=== PATIENT | male | born 1975 | race Caucasian/White ===

== ENCOUNTER 2019-11-19 13:02 | Outpatient (CLI) | payer BC, SELFPAY ==
--- NOTE | 2019-11-19 11:57 | DI.RAD_ITS ---
EXAM: XR KNEE RT 2V AP,LAT CLINICAL HISTORY: pain. TECHNIQUE: 2D digital imaging was performed. COMPARISON: CR KNEES BILAT AP LATERALS from 01/11/2017 FINDINGS: Moderate degenerative changes are seen in the right knee characterized by joint space narrowing and p eriarticular spurring. The findings are most marked in the patellofemoral and medial femoral tibial joint. The bones are intact and normally mineralized. The soft tissues are unremarkable. IMPRESSION: Moderate degenerative changes of the right knee. DATA REPOSITORY: RADIATION DOSE DELIVERED:
== END 2019-11-19 13:22 ==
PROVIDERS: PCP Nurse Practitioner; Referring Provider Nurse Practitioner; Visit Provider Orthopaedic Surgery
DX: M17.11 Unilateral primary osteoarthritis, right knee (principal)
CPT/HCPCS: 73560

== ENCOUNTER → 2020-03-01 09:53 | Outpatient (CLI) | payer BC, SELFPAY ==
--- NOTE | 2020-03-01 08:30 | DI.RAD_ITS ---
EXAM: XR STANDING ALIGNMENT CLINICAL HISTORY: eval alignment pre TKA. TECHNIQUE: 2D digital imaging was performed. COMPARISON: CR XR KNEE RT 2V AP,LAT from 11/19/2019 FINDINGS: There is advanced narrowing of the medial compartment of the right knee. Mild narrowing of the media l compartment of the opposite-left knee. There is mild medial subluxation of the femoral condyles re lative to the tibial plateau bilaterally. Lateral compartments of both knees exhibit normal height. Ankles appear unremarkable. With respect to the hips, image does not include the most superior aspe ct of the femoral heads and therefore it is difficult to determine the amount of narrowing of the hip joint space. If clinically indicated dedicated hip films could be performed. IMPRESSION: Advanced narrowing of the medial compartment of the right knee. Other findings as above. Femoral heads not completely included in the field of view here. DATA REPOSITORY: RADIATION DOSE DELIVERED:
== END ==
PROVIDERS: PCP Nurse Practitioner; Referring Provider Nurse Practitioner; Visit Provider Student in an Organized Health Care Education/Training Program
DX: M17.11 Unilateral primary osteoarthritis, right knee (principal)
CPT/HCPCS: 77073

== ENCOUNTER → 2020-03-05 02:19 | Outpatient (CLI) | payer BC, SELFPAY ==
[2020-03-05 09:33] LABS: HCT 46.1 % (40.0-50.0); HGB 16.2 g/dL (13.5-17.5); MCH 31.5 pg (27.0-33.0); MCHC 35.1 % (32.0-36.0); MCV 89.7 fL (80-95); MPV 10.2 fL (8.0-11.0); Platelet Count 173 10^3/uL (130-400); RBC 5.14 10^6/uL (4.36-5.78); RDW 12.7 % (11.8-14.1); RDW-SD 41.4 fL; WBC 9.88 10^3/uL (4.4-10.8)
[2020-03-05 10:48] LABS: Anion Gap 12.5 mmol/L (3-11); BUN 23 mg/dL (7-18); CO2 22.5 mmol/L (21.0-32.0); CREATININE 0.84 mg/dL (0.70-1.30); Calcium 8.8 mg/dL (8.5-10.1); Chloride 106 mmol/L (98-107); Glucose 85 mg/dL (74-106); Potassium 4.3 mmol/L (3.5-5.1); Sodium 141 mmol/L (136-145)
[2020-03-08 12:11] LABS: COVID-19 RT-PCR Result NEGATIVE (Negative)
== END ==
PROVIDERS: PCP Nurse Practitioner; Visit Provider Student in an Organized Health Care Education/Training Program
DX: M25.561 Pain in right knee (principal); M17.11 Unilateral primary osteoarthritis, right knee; Z11.59 Encounter for screening for other viral diseases; Z01.818 Encounter for other preprocedural examination; Z01.812 Encounter for preprocedural laboratory examination
CPT/HCPCS: 36415; 80048; 85027; U0003

== ENCOUNTER 2020-03-10 08:10 | Day surgery (SDC) | payer BC, SELFPAY ==
[2020-03-10] VITALS (10 sets, daily range): BP systolic 122–147; BP diastolic 71–101; PULSE 68–84; RESP 12–19; TEMP 36.1–37; O2SAT 95–100
[2020-03-10] MEDS: Celecoxib 200 MG CAP 400 MG PO (08:42)
[2020-03-10] MEDS: Acetaminophen 500 MG TAB 1000 MG PO (08:42)
[2020-03-10] MEDS: Gabapentin 300 MG CAP PO (08:43)
--- NOTE | 2020-03-10 08:50 | PDOC.DSDIS_ITS ---
Documented by User: Juli Albrightxon 03/10/20 09:03 Discharge Plan Disposition Patient Disposition: HOME Condition: Good Discharge Details Reason For Visit: R TKA Attending Provider: Chase St Primary Care Provider: Zoya Mariscal Home Meds and New Rx's Prescriptions: New celecoxib [Celebrex] 200 mg capsule 200 mg PO BID Qty: 60 RF: 0 aspirin 81 mg tablet,delayed release (DR/EC) 81 mg PO BID Qty: 60 RF: 0 acetaminophen [Tylenol Extra Strength] 500 mg tablet 500 mg PO Q6H PRNQty: 90 RF: 0 pantoprazole [Protonix] 40 mg tablet,delayed release (DR/EC) 40 mg PO DAILY Qty: 30 RF: 0 oxycodone 5 mg tablet 5 mg PO Q4H PRNQty: 18 RF: 0 docusate sodium [Colace] 100 mg capsule 100 mg PO BID Qty: 30 RF: 0 Continued lisinopril 10 mg tablet 10 mg PO DAILY Qty: 90 RF: 3 Discharge Instructions Additional Instructions: Total Knee Discharge Instructions Activity: The most important activity is to walk. You should try to take short walks a few times a day. It is important that when resting you work on keeping the knee straight. Avoid putting a pillow behind the knee as this will encourage flexion. Work on range of motion exercises as provided by Physical Therapy. - Start outpatient physical therapy within 2 weeks. - You should wear the ROSETTA hose on both legs for 2 weeks. Dressing: Keep the surgical dressing in place for at least one week. After the first week it may be removed and replace with light gauze and tape or nothing. It may get wet after 3 days but avoid soaking the dressing. If it gets wet, just lightly pat dry. Medications: - You should take Tylenol and anti-inflammatory Celebrex as your primary pain control medications. If the Celebrex is too expensive or not covered, please call the office for another alternative (Advil/Ibuprofen or Naproxen/Aleve) - You have been prescribed a stronger pain medication Oxycodone for breakthrough pain, take as needed as prescribed. - You have also been prescribed a stomach acid reduction agent Pantoprozole to help reduce stomach acid and reflux. - You will be taking Aspirin 81mg twice a day for DVT prevention unless instructed otherwise. - If you have constipation you should take Colace (which has been prescribed) or Miralax (which you may purchase [id number]). It takes most people 3-4 days to have a bowel movement. Follow-up: 2 weeks If you have any acute concerns or questions, please do not hesitate to contact the office at [phone]. You may contact Dr. St with any questions after hours through the hospital at [phone] or on his cell phone at [phone]. Referrals: Chase St MD [ [facility] STAFF PHYSICIAN] - Equipment/Supplies: Walker Activity:: Activity as Tolerated Remove Dressings/Wound Care:: Do Not Remove Shower/Bathe:: 72 hours Diet:: As Tolerated Discharge Orders Discharge Orders: Discharge Order (Routine); Ordered 03/10/20 Ordered By: Chase St DS: Diagnosis Discharge Diagnosis (1) Osteoarthritis of right knee: Status: Acute Documented by User: Chase St MD 03/10/20 14:17 Discharge Plan Disposition Patient Disposition: HOME Condition: Good Discharge Details Reason For Visit: R TKA Attending Provider: Chase St Primary Care Provider: Zoya Mariscal Home Meds and New Rx's Prescriptions: New celecoxib [Celebrex] 200 mg capsule 200 mg PO BID Qty: 60 RF: 0 aspirin 81 mg tablet,delayed release (DR/EC) 81 mg PO BID Qty: 60 RF: 0 acetaminophen [Tylenol Extra Strength] 500 mg tablet 500 mg PO Q6H PRNQty: 90 RF: 0 pantoprazole [Protonix] 40 mg tablet,delayed release (DR/EC) 40 mg PO DAILY Qty: 30 RF: 0 oxycodone 5 mg tablet 5 mg PO Q4H PRNQty: 18 RF: 0 docusate sodium [Colace] 100 mg capsule 100 mg PO BID Qty: 30 RF: 0 Continued lisinopril 10 mg tablet 10 mg PO DAILY Qty: 90 RF: 3 Discharge Instructions Additional Instructions: Total Knee Discharge Instructions Activity: The most important activity is to walk. You should try to take short walks a few times a day. It is important that when resting you work on keeping the knee straight. Avoid putting a pillow behind the knee as this will encourage flexion. Work on range of motion exercises as provided by Physical Therapy. - Start outpatient physical therapy within 2 weeks. - You should wear the ROSETTA hose on both legs for 2 weeks. Dressing: Keep the surgical dressing in place for at least one week. After the first week it may be removed and replace with light gauze and tape or nothing. It may get wet after 3 days but avoid soaking the dressing. If it gets wet, just lightly pat dry. Medications: - You should take Tylenol and anti-inflammatory Celebrex as your primary pain control medications. If the Celebrex is too expensive or not covered, please call the office for another alternative (Advil/Ibuprofen or Naproxen/Aleve) - You have been prescribed a stronger pain medication Oxycodone for breakthrough pain, take as needed as prescribed. - You have also been prescribed a stomach acid reduction agent Pantoprozole to help reduce stomach acid and reflux. - You will be taking Aspirin 81mg twice a day for DVT prevention unless instructed otherwise. - If you have constipation you should take Colace (which has been prescribed) or Miralax (which you may purchase [id number]). It takes most people 3-4 days to have a bowel movement. Follow-up: 2 weeks If you have any acute concerns or questions, please do not hesitate to contact the office at [phone]. You may contact Dr. St with any questions after hours through the hospital at [phone] or on his cell phone at [phone]. Referrals: Chase St MD [ [facility] STAFF PHYSICIAN] - Equipment/Supplies: Walker Activity:: Activity as Tolerated Remove Dressings/Wound Care:: Do Not Remove Shower/Bathe:: 72 hours Diet:: As Tolerated Discharge Orders Discharge Orders: Discharge Order (Routine); Ordered 03/10/20 Ordered By: Chase St
[2020-03-10] MEDS: Lactated Ringers 1,000 ML 30 ML IV (09:20)
[2020-03-10] MEDS: Bupivacaine 0.25% Pres-Free 10 ML VIAL (10:10)
[2020-03-10] MEDS: ceFAZolin 2 GM/50 ML BAG IVPB (10:43)
[2020-03-10] MEDS: Ketorolac 30 MG/ML VIAL (11:59)
[2020-03-10] MEDS: Bupivacaine 0.25% Pres-Free 30 ML VIAL (11:59)
[2020-03-10] MEDS: Normal Saline 20 ML VIAL (11:59)
--- NOTE | 2020-03-10 12:31 | W.PM.OP ---
Date of service: 03/10/20 Time of Service: 12:32 Operative Note Operative Note DATE OF PROCEDURE: 03/10/20 PRE-OP DIAGNOSIS: Right Knee Osteoarthritis POST-OP DIAGNOSIS: same PROCEDURE: Right Total Knee Replacement SURGEON: Chase St [employer]: [place] ANESTHESIA: regional and spinal ESTIMATED BLOOD LOSS: 400 PATHOLOGY: none sent TOURNIQUET TIME: 0 COMPLICATIONS: None Patient was transported to: PACU Patient's condition: stable Implants: 1. Depuy Attune Cementless Cruciate Retaining Femoral Component, Size 9 2. Depuy Attune Cementless Rotating Platform Tibial Component, Size 8 3. Depuy Attune 9x6mm CR/RP Poly 4. Depuy Attune Patellar Component, Size 41mm Indications: I have seen Vivek in clinic for symptoms of knee arthritis, confirmed with radiographic findings. Vivek has exhausted nonoperative methods and was having significant limitations in daily function and desired better function and less pain. I discussed the technical details of a knee replacement. I explained the risks of the procedure to include, but not limited to, bleeding, infection, pain, stiffness, fracture, damage to nerves and vessels, damage to muscles and tendons, loosening, need for repeat procedure, blood clot and cardiopulmonary demise. Despite these risks, he elected to proceed. Findings: There was significant signs of arthritis throughout the knee involving all 3 compartments with large medial and anterior femoral osteophytes. Procedure Description: Vivek was greeted in the preoperative holding area where the correct side was identified and marked. The consent was reviewed with the patient and signed. The history and physical was updated. All questions were answered. Preoperative medications were administered: Acetaminophen 1000mg, Celebrex 400mg, and Gabapentin 300mg. An adductor canal block was then administered by the anesthesia team in the PACU. Vivek was taken back to the operating room. A spinal anesthestic was then administered. The patient was placed into the supine position on the operating room table. A nonsterile tourniquet was placed high onto the leg but only used for cementing. Posts were placed for positioning during the procedure. All bony prominences were well padded. Prophylactic antibiotics in the form of Cefazolin were administered. 1g of Tranxemic Acid was given intravenously within 30 minutes of incision. The right leg was then prepped with Chloraprep and draped in a standard fashion with impervious stockinette. A second prep with Chloraprep was performed prior to application of Iodine impregnated skin protection. A timeout to confirm correct identity, side and site, procedure, allergies, anesthesia, and medical concerns was performed. With the knee in some flexion, a midline incision was made overlying the knee. Full thickness skin flaps were raised once the extensor mechanism was encountered. These were raised medially and laterally. Any bleeding was controlled with electrocautery. Once the extensor mechanism was fully exposed, a medial parapatellar arthrotomy was performed in a flexed position. All bleeding from the arthrotomy and the geniculate arteries was coagulated. A medial subperiosteal peel was performed with electrocautery to the midcoronal plane. The fat pad was removed while keeping the patellar tendon protected. The anterior distal femur synovium was removed for later visualization. The ACL and PCL were resected and the anterior horn of the lateral meniscus was transected. The knee was then flexed with the patella everted. Large osteophytes from the tibia were removed. Large osteophytes from the femur were removed. Using a step drill, and based on preoperative templating, the femoral canal was entered. This was done with a step drill without any difficulty. The intramedullary distal femoral cut guide was inserted, set to a 5 degree valgus cut and 10mm cut thickness. The distal femoral cut guide was then held in position and pinned. With the soft tissues protected, the distal cut was performed. This was passed over a few times to ensure a planar cut. I then turned attention to the tibia. The extramedullary guide was placed onto the leg. The distal aspect was slid medial to adjust for position of center of ankle and stay in line with shaft of the tibia. Approximately 5 degrees of posterior slope was kept in the proximal cutting guide. The center of the guide was aligned with the PCL. The stylus was used to assess cut thickness. The medial side, most involved side, was set for a 4mm cut which corresponded to 8mm laterally. This was then held in position and pinned into place with 2 additional pins and a cross pin for stability. The medial and lateral collateral ligaments were protected and the cut was performed. With this completed, it was assessed and noted to be of appropriate dimensions. The guide was removed. A spacer block was inserted and the knee was brought into extension. The 6mm spacer block provided full extension, without hyperextension and with stability of both the medial and lateral collateral ligaments was assessed. The pins from the femur and the tibia were then removed. The distal femur was then sized. The anterior stylus was placed onto the lateral ridge of the anterior femur. This indicated a size 9 femur. The external rotation of the guide was adjusted to 3 degrees to match the epicondylar axis, perpendicular to Adamaris?s line. The 4-in-1 cutting guide was the placed. The posterior medial femur cut was evaluated and appeared of good thickness. The spacer block was inserted underneath the cutting guide and stability was confirmed in 90 degrees of flexion. An latoya wing was used to confirm appropriate position of the anterior cut to avoid notching. This cutting guide was ensured to be flush on the cut surface and then pinned into place with headed pins. While protecting the soft tissues, quad tendon, and collateral ligaments, the anterior and posterior cuts were performed with a saw. The central two pins were removed and the posterior and anterior chamfers were cut next. The notch-cutting guide was placed. This was pinned to lateralize the femoral component as much as possible while keeping it flush on the cut surface. This was then pinned into position. A reciprocating saw was used to make the notch cut. A rasp smoothed the cut surfaces. The medial and lateral menisci were removed. A trial femoral component was then inserted, impacted down to the cut surfaces, and the lug holes were drilled. A provisional trial tibial component was placed and the knee was brought through range of motion. There was noted to be excellent extension and flexion. There was no significant instability. The patella was tracking without thumbs. A size 6mm polyethylene component provided the best range of motion and stability with less than 2mm gapping with medial and lateral stress and full extension without significant hyperextension. The tibial cut surface was fully exposed. The tibia was then sized as a 8. The tibia had been previously marked during trialing to correspond to the center of the tibial component to help with rotation. The trial was aligned to this priscilla, approximately rotated to the medial 1/3rd of the tibial tubercle. The trial was pinned into place. The tibia was prepared with a reamer and a keel punch and lug holes. The knee was then brought into extension and the patella was measured as 29mm. Using the patellar clamp and cut guide, this was resected to a flat surface with at least 13mm of thickness remaining. The size 41mm patella fit the best. This was oriented and then clamped into position. The lugs were drilled. The trial components were removed. The final components were opened on the back table. The periosteal and capsular tissues, especially posteriorly, around the knee were then systematically injected with a periarticular cocktail consisting of 50cc 0.25% Marcaine, 30mg Ketorolac, 20cc of Exparal and 50cc of injectable saline. The knee was thoroughly irrigated with a pulse lavage and dried. Irrisept was also used to irrigate the tissues. On the back table, with the implants opened, the cement was mixed. One batch of high viscosity cement were prepared with vacuum assistance. After the cement was ready a small amount was placed on the cut surface of the patella and the patellar button was clamped into position and held. During this process attention was turned to the gutters of the knee and for all interfaces for any excess cement. While the cement was hardening, the cementless knee components were placed. Starting with the tibial component, the tibia was subluxed anteriorly and the lug holes of the component were lined up. The tibia was then impacted with an impactor and mallet until the tibial component was in contact with the tibia. The final polyethylene component was inserted. Then, the femoral component was inserted. The lug holes were aligned and the component was impacted into position. The knee was irrigated with Irrisept chlorhexadine solution. This was allowed to sit in the knee for 3 minutes. After the cement had finally cured, approximately 15min, the clamp was removed from the patella and the knee was taken through range of motion. The patella was tracking with a no-thumbs technique. The capsule was then reapproximated with a No. 1 Vicryl at multiple locations. The capsule was finally closed with a No. 2 Stratafix, barbed suture. The second dosing of 1g TXA was started. Deep tissues were then reapproximated with 0 Vicryl and 2-0 Vicryl. The skin was closed with a running 3-0 Monocryl in a subcuticular fashion. This was reinforced with skin glue. A Mepilex silver dressing was applied along with a [id number] DENNY wrap. A CryoCuff was applied. Vivek was transferred to the hospital bed without difficulty an suffering no apparent complication. Vivek has a good prognosis. Physical therapy will start today and without restrictions, weight-bearing as tolerated. Aspirin 81mg BID will be used for DVT prophylaxis.
--- NOTE | 2020-03-10 15:48 | IN_ITS ---
Date of service: 03/10/20 Time of Service: 15:48 PT Notes Visit Reasons: R TKA Physical Therapy Inpatient Initial Evaluation Date: 03/10/2020 Referring Doctor: GINI Rosa PT Orders: PT CONSULT: Status post Ortho surgery Precautions: Fall. Standard. WBAT on the right LE. Patient Profile/Admitting Diagnosis: Vivek is a 44-year-old male with degenerative joint disease of the right knee and is status post right total knee arthroplasty on postoperative day 0. PMHX: Medical History Bilateral knee pain Diverticulosis HTN (hypertension) Hyperlipidemia Hyperuricemia Low back pain Obesity KATE (obstructive sleep apnea) Prediabetes Rectal bleeding Surgical History Arthroplasty of knee Back surgery lumbar spine surgery Social History/Home Situation: Vivek lives with the in a private home with 2 steps to enter and bilateral rails. He is independent with all aspects of ADLs prior to surgery. Equipment Owned/DME: None Subjective: Agreeable to PT consult. Complained of sudden onset lightheadedness upon standing up from edge of bed. Nurse Tesfaye rechecked blood pressure which was in the 150s systolically and high 70s diastolically. After 5 minutes of rest patient is agreeable to retry standing up and reports that he felt a lot better. Objective: General Observation: Cryo/Cuff on right knee. Gaurang wraps on right LE. IV access in left UEs. Nurses Travis and Silvana providing needed assist in close vital signs monitoring as needed throughout session. Mental Status: Alert and oriented x4 Pain: 1/10 in the right knee Vital Signs: Within normal limits as closely monitored by nurse Tesfaye before, during, and immediately after PT session. ROM: Right Upper Extremity: Shoulder Flexion WFL. Shoulder abduction WFL. Elbow flexion WFL. Wrist flexion WFL. Opening and closing of hand WFL. Left Upper Extremity: Shoulder Flexion WFL. Shoulder abduction WFL. Elbow flexion WFL. Wrist flexion WFL. Opening and closing of hand WFL. Right Lower Extremity: Hip flexion WFL. Hip abduction WFL. Knee flexion 10 to 90 degrees. Knee extension -10 degrees. Ankle dorsiflexion WFL. Ankle plantarflexion WFL. Left Lower Extremity: Hip flexion WFL. Hip abduction WFL. Knee flexion WFL. Ankle dorsiflexion WFL. Ankle plantarflexion WFL. Strength: Right Upper Extremity: Shoulder flexors 5/5. Shoulder abductors 5/5. Elbow flexors 5/5. Elbow extensors 5/5. [employer] strong. Left Upper Extremity: Shoulder flexors 5/5. Shoulder abductors 5/5. Elbow flexors 5/5. Elbow extensors 5/5. [employer] Technicians strong. Right Lower Extremity: Hip flexors 4/5. Hip abductors 4/5. Knee flexors 3-/5. Knee extensors 3-/5. Ankle dorsiflexors 5/5. Ankle plantarflexors 5/5. Left Lower Extremity:Hip flexors 5/5. Hip abductors 5/5. Knee flexors 5/5. Knee extensors 5/5. Ankle dorsiflexors 5/5. Ankle plantarflexors 5/5. Sensation: Intact as to pain and pressure on bilateral lower extremities. Bed Mobility/Transfers: Rolling independent Supine to sit independent Sit to stand contact-guard assist Stand to sit contact-guard assist Bed to chair contact-guard assist Chair to bed contact-guard assist Gait: Guided and instructed patient on level surface ambulation of 100 feet using the front wheeled walker with step to gait pattern requiring contact-guard assist of PT, standby assist of nurse Tesfaye on the other side, and wheelchair follow-up with nurse Pina. Trained with stair negotiation techniques for 3 steps x4 inch while holding onto 1 rail and with hand-held support of PT with no exacerbation of symptoms. Balance: Static Sitting: Normal Dynamic Sitting: Normal Static Standing: Fair Dynamic Standing: Fair Special Tests: Mobility Limitations Standardized Measure [facility]-PAC 6 clicks Basic Mobility Inpatient Short Form: Raw Score: 21 CMS Score: 29% deficit Informed Consent/Education: Patient instructed in purpose of PT consult and plan of care. Assessment: Vivek requires the use of a front wheeled walker to maximize independence and reduce fall risk at home. He will have the support of his as he recovers at home. He will benefit from outpatient PT services in order to regain independent community ambulation without an assistive device. Patient presents with clinical signs and symptoms consistent with current/admitting diagnoses that have resulted to mobility limitations, gait instability, generalized weakness, and impairment of motor control as demonstrated by the following impairment level findings: 1. Decreased strength to right knee major muscle groups 2. Impaired standing balance 3. Impaired activity tolerance 4. Limitation of joint range of motion in right knee Impairments are contributing to the following functional limitations: 1. Inability to safely ambulate without assistive device 2. Increase completion time for mobility ADL performance 3. Increased fall risk 4. Inability to negotiate steps alone safely Patient is assessed as a 36424 moderate complexity based on the following: History: 44-year-old male with impairment level findings, functional limitations, and past medical history as indicated above Examination: Demonstrable impairment in strength, balance, and mobility level with underlying impairments and functional limitations as documented above Presentation:Evolving Decision Makin moderate complexity Goals: N/A. PT evaluation 1 treatment session only for functional mobility training using the front wheeled walker and for HEP instruction. Plan of Care/Treatment Plan: N/A. PT evaluation 1 treatment session only for functional mobility training using the front wheeled walker and for HEP instruction. DISCHARGE RECOMMENDATIONS: Home when medically cleared by orthopedic surgeon. Outpatient PT services after 2 weeks in order to regain independent community ambulation level without an assistive device. TREATMENT CODE/TIME: 79797 x 30 minutes, 33249 x 24 minutes beginning at 15:48 PM. Thank you for the opportunity to participate in the care of this patient. Claudia Akers PT, DPT, CLT [facility] [place], [place]
== END 2020-03-10 17:55 | disposition home or self-care (01) ==
LOC: SUR 08:10
PROVIDERS: PCP Nurse Practitioner; Visit Provider Student in an Organized Health Care Education/Training Program
PROC: (CPT 27447; principal; 2020-03-10 11:00)
DX: M17.11 Unilateral primary osteoarthritis, right knee (principal); Z96.651 Presence of right artificial knee joint; G89.18 Other acute postprocedural pain; I10 Essential (primary) hypertension
CPT/HCPCS: 27447; C1776; 76942; 97162; 97530; J0690; J1100; J1885; J2405; J2704

== ENCOUNTER 2020-03-26 09:06 | Outpatient (CLI) | payer BC, SELFPAY ==
--- NOTE | 2020-03-26 09:00 | DI.RAD_ITS ---
EXAM: XR STANDING ALIGNMENT and XR knee RT 1 V CLINICAL HISTORY: 1ST POST OP R TKA. TECHNIQUE: 2D digital imaging was performed. COMPARISON: CR XR STANDING ALIGNMENT from 03/01/2020 CR XR KNEE RT 1V from 03/26/2020 FINDINGS: There are mild degenerative changes of the hips bilaterally. Since the prior examination the patient has undergone a right total knee replacement. The orthopedic hardware appears in good position. Th ere is soft tissue swelling about the knee. There is an enthesophyte at the superior patella. The l eft knee shows mild degenerative changes with joint space narrowing and periarticular spurring partic ularly in the medial femoral tibial joint. The ankles are well maintained. The right lower extremit y measures 102.5 cm. The left lower extremity measures 106.2 cm. IMPRESSION: 1. Status post right total knee replacement. Soft tissue swelling around the right knee. 2. Leg length discrepancy. The measured length of the left leg is greater than that of the right leg . DATA REPOSITORY: RADIATION DOSE DELIVERED:
== END 2020-03-26 09:26 ==
PROVIDERS: PCP Nurse Practitioner; Referring Provider Nurse Practitioner; Visit Provider Physician Assistant
DX: Z96.651 Presence of right artificial knee joint (principal); M21.751 Unequal limb length (acquired), right femur
CPT/HCPCS: 73560; 77073

== ENCOUNTER 2020-05-14 06:14 | Day surgery (SDC) | payer BC, SELFPAY ==
[2020-05-14 06:32] VITALS: BP 145/96; PULSE 84; RESP 18; TEMP 36.5; O2SAT 95
--- NOTE | 2020-05-14 07:14 | W.PM.DSUDISC ---
Discharge Plan Disposition Patient Disposition: HOME Condition: Good Discharge Details Reason For Visit: Right Knee ARthrofibrosis Attending Provider: Chase St Primary Care Provider: Zoya Mariscal Home Meds and New Rx's Prescriptions: New oxycodone 5 mg tablet 5 mg PO Q8H PRN PRNQty: 12 RF: 0 Continued lisinopril 10 mg tablet 10 mg PO DAILY Qty: 90 RF: 3 celecoxib [Celebrex] 200 mg capsule 200 mg PO BID Qty: 60 RF: 0 Changed acetaminophen [Tylenol Extra Strength] 500 mg tablet 1,000 mg PO Q8H PRN PRNQty: 60 RF: 0 Discharge Instructions Additional Instructions: Activity: You should begin moving as soon as possible. You should work equally on flexion and extension. Extend the knee by supporting the heel but leaving the back of the knee unsupported. You may bear weight as tolerated, using crutches only for support/comfort. You should apply ice to help with swelling and elevate when possible (especially in the first few days). You should apply ice to assist with swelling and pain. Medications: - Rarely does this require any stronger pain medications, but it may for the first few days or with PT. Oxycodone has been called in. - Recommend to take up to 1000mg of Acetaminophen (Tylenol) every 8 hours and continue your Celebrex 200mg twice a day as needed. Follow-up: 7-10 days Referrals: Chase St MD [ [facility] STAFF PHYSICIAN] - Activity:: Elevate Remove Dressings/Wound Care:: 24 hours Shower/Bathe:: 24 hours Diet:: As Tolerated Discharge Orders Discharge Orders: Discharge Order (Routine); Ordered 05/14/20 Ordered By: Chase St DS: Diagnosis Discharge Diagnosis (1) Arthrofibrosis of total knee arthroplasty: Status: Acute
[2020-05-14] MEDS: Lactated Ringers 1,000 ML 80 ML IV (07:20)
[2020-05-14] MEDS: Bupivacaine 0.25% Pres-Free 30 ML VIAL (07:20)
--- NOTE | 2020-05-14 07:32 | ROE_ITS ---
Date of service: 05/14/20 Time of Service: 07:32 Operative Note Operative Note DATE OF PROCEDURE: 05/14/20 PRE-OP DIAGNOSIS: Right Knee Arthrofibrosis s/p Replacement POST-OP DIAGNOSIS: same PROCEDURE: Right Knee Manipulation Under Anesthesia SURGEON: Chase St ANESTHESIA TYPE: General:No Airway Refer to Anesthesia Record ESTIMATED BLOOD LOSS: 0 PATHOLOGY: none sent TOURNIQUET TIME: 0 COMPLICATIONS: None Patient was transported to: PACU Patient's condition: stable Indications: Vivek is a 45 year old male who is s/p knee replacement. Despite diligent work with physical therapy there has been continued stiffness. To assist with mobility, I offered a manipulation under anesthesia. I discussed the risks of the procedure to include bleeding, pain, recurrent stiffness, fracture. Despite these risks, he elects to proceed. Findings: Preoperative flexion = 115 Postoperative flexion = 125 Preoperative extension = 15 Postoperative extension = 0 Procedure Description: The patient is agreed in the preoperative holding area. Identity was confirmed and the correct side was identified and marked. The consent was reviewed the patient and signed. History and physical was updated. Vivek was taken back to the operating room. The right side was identified as the correct side. A timeout was performed for safe surgery. A general anesthetic was administered. The knee was then prepped with ChloraPrep. I aspirated approximately 15cc of blood tinged nonviscous synovial fluid. I think administered an intra-articular injection of 6cc of 0.25% bupivacaine. Once a muscle relaxant was fully on board manipulation was performed. Pre- manipulation range of motion was noted. A gentle manipulation was performed first into flexion using a very small lever arm and adding gentle and progressive pressure to the tibia. There is some audible and palpable crepitus superior to the patella with improvement in flexion by a few degrees. This was cycled and repeated multiple times. The leg was then brought into extension and gentle anterior posterior pressure was applied with a supported hand behind the proximal tibia and knee. Progressive pressure was applied until there was an audible and palpable crepitus with improvement in extension. This was felt to be posterior and medial. This was repeated with some support under the heel with additional gains in extension to 0 degrees. This was brought back into flexion was once again manipulated with gentle and progressive pressure. Final range of motion numbers were recorded. A Band-Aid was applied to the injection site. He was awake from anesthesia and taken to the PACU in stable condition.
[2020-05-14] MEDS: Normal Saline Flush 10 ML SYR IV (07:50)
[2020-05-14] MEDS: fentaNYL 100 MCG/2 ML VIAL IVP (07:50)
[2020-05-14] MEDS: oxyCODONE 5 MG TAB PO (08:05)
[2020-05-14] MEDS: Acetaminophen 325 MG TAB 650 MG PO (08:05)
[2020-05-14 08:06] VITALS: BP 132/87; PULSE 78; RESP 18; TEMP 36.4; O2SAT 99
== END 2020-05-14 09:00 | disposition home or self-care (01) ==
PROVIDERS: PCP Nurse Practitioner; Visit Provider Student in an Organized Health Care Education/Training Program
PROC: (CPT 27570; principal; 2020-05-14 07:30)
DX: T84.82XA Fibrosis due to internal orthopedic prosthetic devices, implants and grafts, initial encounter (principal); I10 Essential (primary) hypertension; G47.33 Obstructive sleep apnea (adult) (pediatric); R73.03 Prediabetes
CPT/HCPCS: 27570; J1885; J2704; J3010

== ENCOUNTER 2020-12-10 09:47 | Outpatient (CLI) | payer BC, SELFPAY ==
--- NOTE | 2020-12-10 08:15 | DI.RAD_ITS ---
Exam(s) XR KNEE RT 2V AP,LAT EXAM: XR KNEE RT 2V AP,LAT CLINICAL HISTORY: follow up. TECHNIQUE: 2D digital imaging was performed of the right knee. Two views obtained. AP and lateral v iews were obtained. COMPARISON: CR XR KNEE RT 1V from 03/26/2020 FINDINGS: BONES: No acute fracture is present. No bony destructive lesion is seen. There is an enthesophyte at the superior patella. JOINTS: Stable postsurgical changes of a right total knee replacement. No evidence of hardware failu re. No joint effusion is seen. SOFT TISSUE: Normal. IMPRESSION: Stable right TKR. DATA REPOSITORY: RADIATION DOSE DELIVERED:
== END 2020-12-10 09:48 | disposition home or self-care (01) ==
LOC: DIORS 09:47
PROVIDERS: PCP Nurse Practitioner; Referring Provider Nurse Practitioner; Visit Provider Physician Assistant Surgical
DX: T84.82XA Fibrosis due to internal orthopedic prosthetic devices, implants and grafts, initial encounter (principal); Z96.651 Presence of right artificial knee joint
CPT/HCPCS: 73560

== ENCOUNTER 2021-02-08 02:06 | Outpatient (CLI) | payer BC, SELFPAY ==
[2021-02-08 11:19] LABS: Source Nasal/Nares
[2021-02-08 16:52] LABS: COVID-19 PCR Positive (Negative)
== END 2021-02-08 02:07 | disposition home or self-care (01) ==
LOC: LBO 02:06
PROVIDERS: Student in an Organized Health Care Education/Training Program; PCP Nurse Practitioner; Visit Provider Surgery
DX: Z20.822 Contact with and (suspected) exposure to COVID-19 (principal)
CPT/HCPCS: 87635

== ENCOUNTER 2021-04-04 15:29 | Outpatient (CLI) | payer BC, SELFPAY ==
--- NOTE | 2021-04-04 14:45 | DI.RAD_ITS ---
Exam(s) XR KNEE RT 2V AP,LAT EXAM: XR KNEE RT 2V AP,LAT INDICATION: ANNUAL F/U R TKA. COMPARISON: CR XR KNEE RT 2V AP,LAT from 12/10/2020 TECHNIQUE: 2D digital imaging was performed. FINDINGS: No change alignment total knee prosthesis. No abnormal bony lucencies. DATA REPOSITORY: RADIATION DOSE DELIVERED:
== END 2021-04-04 15:30 | disposition home or self-care (01) ==
LOC: DIORS 15:29
PROVIDERS: PCP Nurse Practitioner; Referring Provider Nurse Practitioner; Visit Provider Student in an Organized Health Care Education/Training Program
DX: Z96.651 Presence of right artificial knee joint (principal)
CPT/HCPCS: 73560

== ENCOUNTER 2021-04-25 03:07 | Outpatient (CLI) | payer BC, SELFPAY ==
[2021-04-25 10:03] LABS: Source Nasal/Nares
[2021-04-25 12:57] LABS: COVID-19 PCR Negative (Negative)
== END 2021-04-25 03:08 | disposition home or self-care (01) ==
LOC: LBO 03:07
PROVIDERS: Surgery; PCP Nurse Practitioner; Visit Provider Student in an Organized Health Care Education/Training Program
DX: Z20.822 Contact with and (suspected) exposure to COVID-19 (principal); Z01.818 Encounter for other preprocedural examination
CPT/HCPCS: 87635

== ENCOUNTER 2021-04-27 10:45 | Day surgery (SDC) | payer BC, SELFPAY ==
[2021-04-27] VITALS (8 sets, daily range): BP systolic 133–143; BP diastolic 77–89; PULSE 68–89; RESP 12–17; TEMP 36.3–36.6; O2SAT 95–98; BMI 38.7
--- NOTE | 2021-04-27 06:49 | W.PM.OP ---
Date of service: 04/27/21 Time of Service: 13:52 Operative Note Operative Note DATE OF PROCEDURE: 04/27/21 PRE-OP DIAGNOSIS: Lower lip skin lesion POST-OP DIAGNOSIS: same PROCEDURE: Excision of lower lip skin lesion SURGEON: Eloisa Sierra ANESTHESIA TYPE: General LMA/ETT (Lashonda Narayanan CRNA) Refer to Anesthesia Record ESTIMATED BLOOD LOSS: 15 PATHOLOGY: other (skin lesion- single suture inferior and double suture medial) COMPLICATIONS: None Patient was transported to: same day Patient's condition: stable Indications: Mr. Fritz is a pleasant 45-year-old gentleman with a skin lesion just below his left lower lip. This may be either an inclusion cyst or an ingrown hair. Because of its location I did discuss with the patient that I would like to do this in the operating room so that I do have cautery. I think we could do this under local with a little bit of sedation. He does have severe obstructive sleep apnea. I did discuss the case with Edis Carey and he feels that he could probably do this under little bit of midazolam and ketamine so that the patient does not have to have any oxygen or have an intubation. Risks, benefits, complications of the procedure were reviewed with him. Complications include but are not limited to bleeding, infection, recurrence, wound dehiscence and undesirable cosmetic result. Questions were entertained and answered to his satisfaction and he wished to proceed. No guarantees were given or implied. Proceed with excision of skin lesion to lower lip Procedure Description: Informed consent was obtained prior to the patient going to the operating room for his right knee arthroscopy. Once Dr. tS was done with the knee arthroscopy, the patients lower lip, chin and upper neck was prepped with iodine. Drape were placed around the skin lesion in a sterile surgical fashion. The dermis and subcutaneous tissue was infiltrated with 1% Lidocaine. An eliptical incision was around the lesion with a 15 blade. Dissection was done around the lesion with the blade. Once the lesion was completely dissected it was marked with a single suture inferior and a double suture medial and placed into formalin. The wound was irrigated with some saline. Bleeding was stopped using cautery as well as suture ligation. Once the wound was clean and dry the subcutaneous tissue was reapproximated with 4-0 Vicryl interrupted sutures. The dermis was closed with interrupted 5-0 Proline suture. Skin was cleaned and dried and mastasol and steri-strips were applied. The patient was woken up, extubated and taken to PACU in stable condition. The patient tolerated the procedure well and there were no immediate complications. Needle, and sponge counts were correct at the end of the case.
--- NOTE | 2021-04-27 06:50 | W.PM.DSUDISC ---
Discharge Plan Disposition Patient Disposition: HOME Condition: Good Discharge Details Reason For Visit: Right knee arthrofibrosis Attending Provider: Chase St Primary Care Provider: Zoya Mariscal Home Meds and New Rx's Prescriptions: New oxycodone 5 mg tablet 5 mg PO Q8H PRN (Reason: severe post-operative pain) Qty: 12 RF: 0 Continued lisinopril 10 mg tablet 20 mg PO DAILY Qty: 90 RF: 3 celecoxib 200 mg capsule 200 mg PO BID PRN (Reason: pain) Qty: 60 RF: 3 acetaminophen [Tylenol Extra Strength] 500 mg tablet 1,000 mg PO Q8H PRN PRNQty: 60 RF: 0 Discharge Instructions Additional Instructions: Orthopedic Instructions: Knee Manipulation Discharge Instructions: Activity: You should begin moving as soon as possible. You may work on flexion but also equally maintain extension. You may bear weight as tolerated, using crutches only for support/comfort. You should apply ice to help with swelling and elevate when possible (especially in the first few days). Dressings: The knee dressing may come down after 48 hours. You may shower and get the wound wet at that time. You should keep the wounds covered with a bandaid until follow-up. Medications: - Rarely does this require any stronger pain medications, but it may in the first few days. Oxycodone has been prescribed for breakthrough pain. - Recommend to take up to 1000mg of Acetaminophen (Tylenol). You may continue with your prescribed celebrix 200 mg BID. Follow-up: 7-10 days General Surgery Discharge Instructions: For Constipation: 1. Take Milk of Magnesia or MiraLax as needed for constipation Other: 1. You may shower in 48 hours. Do not scrub the incisions 2. Do not soak the incisions for 1 week 3. You may alternate ice and heat as needed for pain and swelling Wound Care: 1. Keep the incisions clean and dry Please call our office if you develop: 1. Fevers >101.5 2. Nausea or Vomiting 3. Worsening pain 4. Redness and thick discharge from the wounds If after hours please call the Hospital at and ask to speak to the on-call surgeon Referrals: Chase St MD [ [facility] STAFF PHYSICIAN] - Eloisa Sierra MD [ [facility] STAFF PHYSICIAN] - 05/06/21 9:30 am Equipment/Supplies: Walker Activity:: as above Remove Dressings/Wound Care:: 48 hours Shower/Bathe:: 48 hours Diet:: As Tolerated Discharge Orders Discharge Orders: Discharge Order (Routine); Ordered 04/27/21 Ordered By: Eloisa Sierra
--- NOTE | 2021-04-27 06:53 | HPE_ITS ---
Assessment and Plan Assessment and plan (1) Lip lesion: Assessment and plan: Mr. Fritz is a pleasant 45-year-old gentleman with a skin lesion just below his left lower lip. This may be either an inclusion cyst or an ingrown hair. Because of its location I did discuss with the patient that I would like to do this in the operating room so that I do have cautery. I think we could do this under local with a little bit of sedation. He does have severe obstructive sleep apnea. I did discuss the case with Edis Carey and he feels that he could probably do this under little bit of midazolam and ketamine so that the patient does not have to have any oxygen or have an intubation. Risks, benefits, complications of the procedure were reviewed with him. Complications include but are not limited to bleeding, infection, recurrence, wound dehiscence and undesirable cosmetic result. Questions were entertained and answered to his satisfaction and he wished to proceed. No guarantees were given or implied. Proceed with excision of skin lesion to lower lip History of Present Illness Narrative: Mr. Fritz is a pleasant 45-year-old gentleman who is here today because he has a lesion just below his lower lip in the midline. It has been there for a couple of months but has changed in color which made him worried. It has never drained. He does not have a history of skin cancer. He does have a wilks. He has never had any other cysts or lesions removed from his skin. His past medical history is significant for hypertension and severe obstructive sleep apnea. Review of Systems Cardiovascular Cardiovascular: Denies chest pain, Denies chest pain at rest, Denies irregular heart rhythm, Denies dyspnea and Denies dyspnea on exertion Respiratory Respiratory: Denies cough, Denies dyspnea and Denies dyspnea on exertion Gastrointestinal Gastrointestinal: Reports as per HPI Genitourinary Genitourinary: Denies dysuria, Denies urinary incontinence and Denies urinary urgency Integumentary/Breasts Skin/Breast: Reports system reviewed and no additional complaints, except as documented Endocrine Endocrine: Reports system reviewed and no additional complaints, except as documented Hematologic/Lymphatic Hematologic/Lymphatic: Denies easy bruising and Denies lymphadenopathy PFSH All Active Problems Essential hypertension (Acute 03/03/13) Medical History Bilateral knee pain Chronic diarrhea 05/21/15 COLONOSCOPY; DR. ITALO FIGUEROA-04 February 2021-sore throat, stuffy nose Diverticulosis HTN (hypertension) Hyperlipidemia Hyperuricemia Lip lesion Low back pain Obesity Obstructive sleep apnea syndrome 12/25 SLEEP STUDY @ [facility]: SEVERE OBSTRUCTIVE SLEEP APNEA; CPAP ADVISED. Prediabetes Rectal bleeding Surgical History (Updated 04/27/21 @ 11:07 by Ludmila Dao RN) Arthrofibrosis of total knee arthroplasty RIGHT S/P manipulation under anesthesia: 05/14/2020 Arthroplasty of knee Pt had a scope of knee previous to his coming in today for a total knee. H/O gastric bypass History of total right knee replacement (03/10/20) lumbar spine surgery Per pt. stated Cleaned out around the nerves laminectomy/discectomy Family History Mother No problems noted. Father No problems noted. Brother No problems noted. Grandfather No problems noted. Grandfather No problems noted. Grandmother No problems noted. Grandmother Diabetes Brother No problems noted. Brother No problems noted. Son No problems noted. Social History Smoking/Tobacco Use Status: Former Tobacco Use Tobacco: How many years used: 10 Smokeless tobacco user: chewing tobacco Smoking risk assessment performed?: Yes Alcohol Intake: current Alcohol Intake frequency: a few times a week Alcohol type: beer and hard liquor Drug use: Never Substance use type: does not use Details: alcohol on sunday night Household members: other Details: 3 current occupation: TEACHER Pets and animals: Yes Pets and animals: dog(s) Current gender identity: male Frequency: daily Sushila/Pentecostal: Catholic Do you feel safe at home: Yes Do you feel safe in your relationship?: Yes Meds Allergies and Home Medications Allergies Allergy/AdvReac Type Severity Reaction Status Date / Time No Known Drug Allergies Allergy Unverified 04/27/21 11:08 Home Medications Medication Instructions Recorded Confirmed Type acetaminophen [Tylenol Extra 1,000 mg PO Q8H PRN PRN #60 tab 05/14/20 04/26/21 Rx Strength] celecoxib 200 mg capsule 200 mg PO BID PRN #60 cap 04/04/21 04/27/21 Rx lisinopril 10 mg tablet 20 mg PO DAILY #90 tab 04/08/21 04/27/21 Rx oxycodone 5 mg PO Q8H PRN #12 tab 04/27/21 Rx Exam Const General: healthy appearing and comfortable Resp Effort & Inspection: normal respiratory effort Auscultation: clear to auscultation bilaterally Cardio Rate: regular rate Rhythm: regular rhythm Heart Sounds: no click, no gallops and no murmurs
--- NOTE | 2021-04-27 07:29 | W.PM.DSUDISC ---
Discharge Plan Disposition Patient Disposition: HOME Condition: Good Discharge Details Reason For Visit: Right knee arthrofibrosis Attending Provider: Chase St Primary Care Provider: Zoya Mariscal Home Meds and New Rx's Prescriptions: New oxycodone 5 mg tablet 5 mg PO Q8H PRN (Reason: severe post-operative pain) Qty: 12 RF: 0 Continued lisinopril 10 mg tablet 20 mg PO DAILY Qty: 90 RF: 3 celecoxib 200 mg capsule 200 mg PO BID PRN (Reason: pain) Qty: 60 RF: 3 acetaminophen [Tylenol Extra Strength] 500 mg tablet 1,000 mg PO Q8H PRN PRNQty: 60 RF: 0 Discharge Instructions Additional Instructions: Knee Manipulation Discharge Instructions: Activity: You should begin moving as soon as possible. You may work on flexion but also equally maintain extension. You may bear weight as tolerated, using crutches only for support/comfort. You should apply ice to help with swelling and elevate when possible (especially in the first few days). Dressings: The knee dressing may come down after 48 hours. You may shower and get the wound wet at that time. You should keep the wounds covered with a bandaid until follow-up. Medications: - Rarely does this require any stronger pain medications, but it may in the first few days. Oxycodone has been prescribed for breakthrough pain. - Recommend to take up to 1000mg of Acetaminophen (Tylenol). You may continue with your prescribed celebrix 200 mg BID. Follow-up: 7-10 days General Surgery Discharge Instructions: Activity at Home after surgery: 1. Make sure you walk outside at least 4 times per day 2. You should be able to climb a flight of stairs 3. No driving while in pain or taking pain medications 4. No strenuous activity or heavy lifting for 2 weeks (laparoscopic surgery) or 4 weeks (open surgery) Diet, Nutrition, & wound healin. Avoid alcohol until after you are recovered from your surgery 2. Make sure to eat plenty of lean protein (meat, fish, eggs, cottage cheese, beans) 3. Eat a variety of fruits and vegetables. Eat plenty of high fiber foods to avoid constipation. 4. Drink plenty of liquids to stay hydrated and avoid constipation Pain Medications: 1. Tylenol 650mg every 6 hours as needed and Ibuprofen 600 mg every 6 hours as needed. You may alternate between the 2 medications every 3 hours 2. If a narcotic has been prescribed take as directed only for breakthrough pain For Constipation: 1. Take Milk of Magnesia or MiraLax as needed for constipation Other: 1. You may shower daily. Do not scrub the incisions 2. Do not soak the incisions for 1 week 3. You may alternate ice and heat as needed for pain and swelling Wound Care: 1. Keep the incisions clean and dry Other Services that may have been ordered: 0 Home Health- to help with dressing changes 0 Outpatient physical therapy Please call our office if you develop: 1. Fevers >101.5 2. Nausea or Vomiting 3. Worsening pain 4. Redness and thick discharge from the wounds If after hours please call the Hospital at and ask to speak to the on-call surgeon Referrals: Chase St MD [ [facility] STAFF PHYSICIAN] - Equipment/Supplies: Walker Activity:: Activity as Tolerated Remove Dressings/Wound Care:: 48 hours Shower/Bathe:: 48 hours Diet:: As Tolerated Discharge Orders Discharge Orders: Discharge Order (Routine); Ordered 04/27/21 Ordered By: Eloisa Sierra DS: Diagnosis Discharge Diagnosis (1) Arthrofibrosis of total knee arthroplasty: (2) Arthroplasty of knee:
--- NOTE | 2021-04-27 11:32 | ANES.PREOP_ITS ---
General Info Date of Service Date Performed: 04/27/21 Height: 6 ft 4 in Weight: 144.6 kg Body Mass Index (BMI): 38.7 Surgical Procedure: Operation Date: 04/27/21 11:40 Proposed Procedures Side Surgeon p Knee Arthroscopy WITH SYNOVECTOMY Right [facility] MD s Excision Lesion of lower lip Eloisa Sierra MD Meds Allergies and Home Medications Allergies Allergy/AdvReac Type Severity Reaction Status Date / Time No Known Drug Allergies Allergy Unverified 04/27/21 11:08 Home Medication Medication Instructions Recorded acetaminophen [Tylenol Extra 1,000 mg PO Q8H PRN PRN #60 tab 05/14/20 Strength] celecoxib 200 mg capsule 200 mg PO BID PRN #60 cap 04/04/21 lisinopril 10 mg tablet 20 mg PO DAILY #90 tab 04/08/21 oxycodone 5 mg PO Q8H PRN #12 tab 04/27/21 Current Visit Medications: Current Medications Generic Name Dose Route Start Last Admin Trade Name Freq PRN Reason Stop Dose Admin Acetaminophen 650 mg 04/27/21 07:28 Acetaminophen 325 Mg Tab PO Q4H PRN PRN Ringer's Solution 1,000 mls @ 80 mls/hr 04/27/21 06:00 IV 05/16/21 23:59 INFUSION ONIEL Cefazolin Sodium 3,000 mg/ 100 mls @ 200 mls/hr 04/27/21 06:00 Sodium Chloride IVPB 04/27/21 16:00 PREOP ONIEL Ondansetron HCl 4 mg/ Sodium 52 mls @ 200 mls/hr 04/27/21 06:51 Chloride IVPB Q6H PRN PRN IV Miscellaneous Supplies 1 each 04/27/21 06:00 Iv Access IV 05/16/21 23:59 DIRECTED ONIEL Oxycodone HCl 5 mg 04/27/21 07:28 Oxycodone 5 Mg Tab PO Q3H PRN PRN Pain Sodium Chloride 0 ml 04/27/21 06:00 Normal Saline Flush 10 Ml Syr IV 05/16/21 23:59 PRN PRN Sodium Chloride 0 ml 04/27/21 06:00 Normal Saline 10 Ml Vial IJ 05/16/21 23:59 DIRECTED PRN Sterile Water 0 ml 04/27/21 06:00 Water,Injection,Sterile 10 Ml Vial IJ 05/16/21 23:59 DIRECTED PRN PFSH Active Problems Active Problems: Problem Status Onset Code Essential hypertension 03/03/13 I10 Medical History Medical History Bilateral knee pain Chronic diarrhea 05/21/15 COLONOSCOPY; DR. PUCKETT COVID-04 February 2021-sore throat, stuffy nose Diverticulosis HTN (hypertension) Hyperlipidemia Hyperuricemia Lip lesion Low back pain Obesity Obstructive sleep apnea syndrome 12/25 SLEEP STUDY @ [facility]: SEVERE OBSTRUCTIVE SLEEP APNEA; CPAP ADVISED. Prediabetes Rectal bleeding Surgical History Surgical History (Updated 04/27/21 @ 11:07 by Ludmila Dao RN) Arthrofibrosis of total knee arthroplasty RIGHT S/P manipulation under anesthesia: 05/14/2020 Arthroplasty of knee Pt had a scope of knee previous to his coming in today for a total knee. H/O gastric bypass History of total right knee replacement (03/10/20) lumbar spine surgery Per pt. stated Cleaned out around the nerves laminectomy/discectomy Tobacco Smoking/Tobacco Use Status: Former Tobacco Use Tobacco: How many years used: 10 Smokeless tobacco user: chewing tobacco Alcohol Alcohol Intake: current Alcohol intake frequency: a few times a week Alcohol type: beer and hard liquor Substance Use Substance use: Never Substance use type: does not use Details: alcohol on sunday night Vital Signs and Lab Results Vital Signs Most Recent Vital Signs in EMR: Most Recent Vital Signs Temp Pulse Resp BP Pulse Ox 36.5 C 89 16 143/89 H 96 04/27/21 11:09 04/27/21 11:09 04/27/21 11:09 04/27/21 11:09 04/27/21 11:09 Lab Results Blood Type / Crossmatch: No Data to Display Complete Blood Count: No Data to Display Complete Metabolic Panel: No Data to Display Liver Function Panel: No Data to Display Coagulation Panel: No Data to Display Cardiac Panel: No Data to Display Arterial Blood Gas: No Data to Display Venous Blood Gas: No Data to Display Pancreas Panel: No Data to Display Thyroid Panel: No Data to Display Infectious Disease: Coronavirus (COVID-19)(PCR) Negative (Negative) 04/25/21 08:30 04/25/21 Coronavirus 2019 Source Nasal/Nares 04/25/21 08:30 04/25/21 Blood Cultures: No Data to Display Toxicology Panel: No Data to Display Anesthesia Assessment and Plan Anesthesia History Personal History: No History of Anesthesia Complications Family History: No Family History of Anesthesia Complications Exercise Tolerance Exercise Tolerance: Metabolic Equivalents>4 Pertinent Negatives Pertinent Negatives: No Major Cardiovascular Symptoms or Complaints and No Major Pulmonary Symptoms or Complaints Cardiac & Pulmonary Exam Cardiac Exam: Normal S1/S2 Heart Sounds Pulmonary Exam: Clear Bilateral Breath Sounds Implantable Cardiac Device Does patient have a Pacemaker or an ICD?: No Airway Exam Known Difficult Airway: No Mallampati Class: 1 Mouth Opening: Normal (> 3cm) Thyromental Distance: Greater than 3 cm Neck Range of Motion: Full ROM Neck Circumference: Normal Teeth Condition: Normal Dentition ASA Classification ASA Score: ASA 2 Emergency Case?: No NPO Status NPO Status: NPO Clears >2 hours, Solids >8 hours Anesthesia Plan Resuscitation Status: Full Code Anesthesia Technique: General Anesthesia Airway Planned: Natural Airway Monitors Used: Standard Monitors
[2021-04-27] MEDS: Lactated Ringers 1,000 ML 80 ML IV (11:49)
[2021-04-27] MEDS: ceFAZolin 3,000 MG in Normal Saline 100 ML 200 MG IVPB (12:19)
[2021-04-27] MEDS: Bupivacaine 0.5% Pres-Free 30 ML VIAL ×2 (12:46→13:36)
--- NOTE | 2021-04-27 13:32 | LIPBX_PTH ---
PATIENT: Vivek Fritz LOC: VON U#:[id number] AGE/SX: 46/M ROOM: RE04/27/[address]: Chase St MD : 1975 BED: DIS: 04/27/2021 SPEC #: [id number] RECD: 04/27/21 18:22 STATUS: KEN REQ #: [id number] MIAN: 04/27/21 13:[address]: Eloisa Sierra DEPT: Surgical Specimen RECD BY: Cortney Araujo ENTERED: 04/27/21 18:24 SP TYPE: LIPBX OTHR DR: Zoya Mariscal, PhD [employer] [address] MD Tissues: 1 - LIP BIOPSY/RESECTION Procedures: GROSS AND MICRO LEVEL 4 Comments: [id number]
--- NOTE | 2021-04-27 14:44 | W.ANESPOSTOP ---
Postoperative Evaluation Date, Time and Location Date Performed: 04/27/21 Time Performed: 14:44 Patient Location: PACU Vital Signs Most Recent Imported Vital Signs: Most Recent Vital Signs Temp Pulse Resp BP Pulse Ox 36.3 C L 68 12 140/81 95 04/27/21 14:30 04/27/21 14:30 04/27/21 14:30 04/27/21 14:30 04/27/21 14:30 Pain Score Most Recent Pain Score: Most Recent Pain Score Pain Level 8 04/27/21 11:09 Assessment Mental Status: Awake (Alert & Oriented to Patient Baseline) Airway and Respiratory Function: Patent airway with normal (patient baseline) respiratory exam Cardiovascular Function: Hemodynamically Stable Hydration Status: Adequately Hydrated Nausea & Vomiting: No Nausea or Vomiting Pain: Pain is tolerable per patient (Discussed difficult intubation with patient and reports of sore throat. Patient verbalizes understanding.) Peripheral Nerve Block: Patient did not receive a nerve block
[2021-04-27] MEDS: oxyCODONE 5 MG TAB PO (14:56)
--- NOTE | 2021-04-27 15:16 | ROE_ITS ---
Date of service: 04/27/21 Time of Service: 13:16 Operative Note Operative Note DATE OF PROCEDURE: 04/27/21 PRE-OP DIAGNOSIS: Arthrofibrosis of Knee Replacement - RIGHT knee POST-OP DIAGNOSIS: same PROCEDURE: Arthroscopic Synovectomy of 3 Compartments - RIGHT Knee SURGEON: Chase St Refer to Anesthesia Record ESTIMATED BLOOD LOSS: 15 PATHOLOGY: other (skin lesion- single suture inferior and double suture medial) COMPLICATIONS: None Patient was transported to: same day Patient's condition: stable Indications: I have seen Vivek in clinic for symptoms of arthrofibrosis of the knee following knee replacement surgery. His motion had greatly improved from a previous manipulation but he continued to have subjective tightness and crepitus about his knee. I discussed knee arthroscopy with synovectomy with maniuplation with the patient. I reviewed the risks of the procedure to include, but not limited to, bleeding, infection, pain, continued stiffness, re currence, blood clot. Despite these risks, the patient elected to proceed. Findings: There were adhesions in the suprapatellar space and around the patella which were released and debrided. Procedure Description: Vivek was greeted in the preoperative holding area where the correct side was identified and marked. The consent was reviewed with the patient and signed. The history and physical was updated. All questions were answered. He was taken back to the operating room. The patient was placed into the supine position on the operating room table. All bony prominences were well padded. Prophylactic antibiotics in the form of Cefazolin were administered. The right leg was then prepped with Chloraprep and draped in a standard fashion with stockinette and extremity drape. A timeout to confirm correct identity, side and site, procedure, allergies, anesthesia, and medical concerns was performed. The leg was placed into a pneumatic leg low, SPIDER2. A standard lateral portal was made at the lateral border of the patella tendon in line with the inferior pole of the patella, soft spot. The skin and deep tissue was incised sharply and the blunt trochar was inserted atraumatically. At this point had visualization of the femoral component. A superolateral portal was then es tablished with spinal needle localization just superior and lateral to the patella. A knife was taken down through the skin and soft tissue to enter the knee joint. Starting in the superior compartment above the femoral component and anterior to the femur I released all scarring between the anterior femoral synovium and the overlying extensor mechanism. This was taken through all of any noticeable scar tissue until the superior patellar pouch was fully released and mobile. This resection was carried out mostly with electrocautery as well as shaver. Once this was released fully from lateral to medial superiorly, I then continue working down the lateral gutter. All scar tissue in the lateral gutter was released so there is normal space and movement between the capsular tissues and the edge of the femoral component and femur. This was taken down through the lateral gutter such that I was able to identify the polyethylene to its posterior corner. Once again, all scar tissue in this area was resected so the polyethylene was easily visible and there is no interposed tissue in the back or the polyethylene was identified. I think continue to work anteriorly. To continue the synovectomy from the lateral compartment to the anterior compartment into the medial compartment, I placed a medial portal under spinal needle localization. Once this was in place it became another working portal and I continued the synovectomy through the anterior compartment to the medial compartment. Once again, I freed up the medial gutter so I was able to visualize the polyethylene from the anterior posterior margins. There is no interposed tissue after full synovectomy was performed. Adhesions between the capsule and the femur were released. This was continued up the medial gutter until it met up with the releases performed previously in the superior compartment. Any remnant scar tissue from around the patella was then removed with a shaver and electrocautery. The arthroscope was brought back into the suprapatellar pouch and the leg was in full extension. The knee was thoroughly irrigated with the arthroscopic fluid on high flow and pressure. Inflow was stopped and excess fluid was removed. The wounds were closed with 4-0 Nylon. 0.25% ropivacaine was injected around the portal sites and into the knee. The wounds were dressed with Xeroform, 4x4 gauze, ABD pad, Kerlix and an DENNY wrap. A cryo-cuff was applied. The patient tolerated the procedure well and was returned to the Same Day Surgery area in a stable condition suffering no known complication..
== END 2021-04-27 16:05 | disposition home or self-care (01) ==
LOC: SUR 10:45
PROVIDERS: Surgery; PCP Nurse Practitioner; Visit Provider Student in an Organized Health Care Education/Training Program
PROC: (CPT 29870; principal; 2021-04-27 11:30)
PROC: 0HB1XZZ Excision of Face Skin, External Approach (ICD-10-PCS; 2021-04-27 11:30)
DX: K13.0 Diseases of lips (principal); M24.661 Ankylosis, right knee; G47.33 Obstructive sleep apnea (adult) (pediatric); I10 Essential (primary) hypertension; R73.03 Prediabetes; E78.5 Hyperlipidemia, unspecified; Z96.651 Presence of right artificial knee joint; D23.0 Other benign neoplasm of skin of lip
CPT/HCPCS: 29884; 29876; 11442; 88305; J0690; J1100; J2001; J2405; J2704; J3010

== ENCOUNTER 2022-07-02 21:31 | Observation (INO) | payer BC, SELFPAY ==
--- NOTE | 2022-07-02 21:30 | DI.CT_ITS ---
Exam(s) CT ABDOMEN PELVIS W EXAM: CT ABDOMEN PELVIS W CLINICAL HISTORY: hx of gastric bypass, abd pain. TECHNIQUE: Imaging Protocol: Axial computed tomography images with coronal and sagittal reformatted images were created and reviewed CONTRAST MATERIAL: Intravenous: Omnipaque-350 100cc Oral: Yes. Oral contrast was administered for bowel opacification. COMPARISON: No exams were available for comparison FINDINGS: VISUALIZED LUNG BASES: Mild increased markings both lung bases. No pleural effusions.. ABDOMEN: There is no ascites. GI/abdominal wall: There is evidence of previous stomach surgery, possibly gastric sleeve bariatric. No evidence of small-bowel obstruction. However, there is significant abnormality of a small-bowel loop in left side of the abdomen which exh ibits signs of focal perforation, possibly related to a diverticulum in the bowel at this level. The re is adjacent free air and suspicion for developing abscess at this level measuring 3 x 3 cm. There is an anterior abdominal wall right para umbilical hernia which contains fat but no bowel loops . This also contains a calcification anteriorly but unrelated to bowel loop. This hernia sac measur es 6 cm wide by 4 cm AP by 5.7 cm cephalocaudal. The peripheral calcified density measuring 7 x 6 mm is locate anteriorly in the hernia sac. It is not part of bowel. There is no bowel loop nor fluid in the hernia sac. No free air. No evidence of mesenteric swirl sign. There is no evidence of thro mbosis of the superior mesenteric vein, this being a dreaded potential complication of gastric sleeve surgery. LIVER: There are no focal hepatic lesions evident. No dilated intrahepatic ducts. GALLBLADDER/BILIARY: There is a large gallstone in the gallbladder fundus region which measures 3.2 b y 2.8 cm. Gallbladder is not distended nor edematous. CBD not dilated. PANCREAS: No evidence of pancreatic mass nor dilatation of the pancreatic duct. SPLEEN: Spleen is not enlarged. No obvious intrasplenic lesions. Splenic and portal veins are paten t. 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 No findings in the opposite-right adrenal gland. KIDNEYS:No cysts evident. No solid renal masses. No calculi nor hydronephrosis.. ABDOMINAL AORTA: Abdominal aorta is not enlarged. LYMPH NODES:There is no retroperitoneal nor paraaortic adenopathy. PELVIS: GI: No evidence of appendicitis.Sigmoid diverticulosis. No evidence of acute diverticulitis. LYMPH NODES: There is no intrapelvic nor inguinal adenopathy. REPRODUCTIVE: Mildly enlarged prostate. URINARY BLADDER: No calculi nor obvious masses evident OSSEOUS: No fractures nor osseous lesions. IMPRESSION: 1. Left side small bowel perforation with adjacent free air. Surgical consultation recommended. 2. Evidence of bariatric gastric sleeve surgery. No evidence of mesenteric swirl sign and no evidenc e of thrombosis of the superior mesenteric vein. 3. Cholelithiasis. There is a single large gallstone in the fundus of the gallbladder. No evidence of acute cholecystitis. 4. Incidentally noted is a fatty left adrenal mass measuring 3.5 x 3.6 cm. 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 Study 1st read by [facility]. RADIATION DOSE DELIVERED: 2,159.75mGy.cm Total DLP DATA REPOSITORY: All CT scans at this facility are submitted to the National Radiology Data Registry (NRDR) Dose Index Registry (DIR) with the [employer] (ACR). RADIATION OPTIMIZATION: All CT scans at this facility use at least one of these dose optimization te chniques: automated exposure control; mA and/or kV adjustment per patient size (includes targeted exa ms where dose is matched to clinical indication); or iterative reconstruction.
[2022-07-02 21:35] VITALS: BP 144/92; PULSE 100; RESP 20; TEMP 37.2; O2SAT 97
[2022-07-02 21:55] LABS: Bilirubin Negative (Negative); Blood Trace-intact (Negative); Clarity Clear (Clear); Glucose Negative (Negative); Ketones 15 mg/dL (Negative); Leukocyte Esterase Negative (Negative); Nitrite Negative (Negative); Specific Gravity >= 1.030 (1.005-1.025)
[2022-07-02] MEDS: Omnipaque 350 MG/ML 50 ML BTL PO (21:58)
[2022-07-02] MEDS: Breeza Beverage 473 ML BTL PO (21:59)
--- NOTE | 2022-07-02 22:00 | RT.EKG_ITS ---
APPROVED REPORT Exam: Resting ECG Reason for Exam: epigastric pain Patient Location: E HR:89 bpm ECG Measurements Heart Rate 89 AXIS GA 150 P 41 QRSd 92 QRS 8 QT 350 T 40 QTc 427 Conclusion Sinus rhythm...normal P axis, V-rate 60- 99. Sinus. Normal axis. No STEMI. I have reviewed and interpreted ECG and agree with software generated interpretation.
[2022-07-02 22:04] LABS: Bacteria Rare HPF (Negative); C & S Indicated? No; Casts Negative LPF (Negative); Crystals Negative HPF (Negative); Epithelial Cells Rare HPF (Negative); Mucus Moderate (Negative); WBC Negative HPF (0-5)
[2022-07-02 22:18] LABS: Abs Immature Grans 0.05 10^3/uL (0.0-0.06); Absolute Basophil Count 0.05 10^3/uL (0.0-0.2); Absolute Eosinophil Count 0.09 10^3/uL (0.0-0.7); Absolute Lymphocyte Count 1.92 10^3/uL (1.2-3.4); Absolute Monocyte Count 0.78 10^3/uL (0.1-0.8); Absolute Neutrophil Count 5.58 10^3/uL (1.2-6.7); Basophils % 0.6; Eosinophils % 1.1; HCT 42.3 % (40.0-50.0); HGB 15.1 g/dL (13.5-17.5); Immature Grans % 0.6; Lymphocytes % 22.7; MCH 32.5 pg (27.0-33.0); MCHC 35.7 % (32.0-36.0); MCV 91 fL (80-95); MPV 9.7 fL (8.0-11.0); Monocytes % 9.2; Neutrophils % 65.8; Platelet Count 157 10^3/uL (130-400); RBC 4.65 10^6/uL (4.36-5.78); RDW 13.2 % (11.8-14.1); WBC 8.47 10^3/uL (4.4-10.8)
[2022-07-02] MEDS: Ondansetron 4 MG/2 ML VIAL IVP (22:19)
[2022-07-02] MEDS: HYDROmorphone 2 MG/ML SYR 1 MG IVP (22:20)
[2022-07-02 22:30] LABS: ALT 46 U/L (16-63); Albumin 3.8 g/dL (3.4-5.0); Alkaline Phosphatase 76 U/L (46-116); Anion Gap 6.3 mmol/L (3-11); BUN 17 mg/dL (7-18); Bilirubin, Total 0.7 mg/dL (0.2-1.0); CO2 28.7 mmol/L (21.0-32.0); Calcium 8.6 mg/dL (8.5-10.1); Chloride 108 mmol/L (98-107); Estimated GFR 92.26 (mL/min/1.73m2); Glucose 127 mg/dL (74-106); Lipase 51 U/L (16-77); Potassium 4.1 mmol/L (3.5-5.1); Sodium 143 mmol/L (136-145); Total Protein 7.5 g/dL (6.4-8.2)
[2022-07-02] MEDS: Lactated Ringers 1,000 ML 1000 ML IV (22:30)
[2022-07-02 22:33] LABS: Troponin I < 50 ng/L (<or=60)
[2022-07-02 22:40] LABS: AST 25 U/L (15-37)
--- NOTE | 2022-07-02 23:01 | W.ED.GENAD ---
Discharge Plan Discharge Details Chief Complaint: Abd Prob Admit Date/Time: 07/03/22 01:27 Admit Provider: Gerardo Kyle Attending Provider: Gerardo Kyle Primary Care Provider: Aziza Davis ED Provider: Cortney Kurtz Discharge Data Discharge Date/Time-TO BE ENTERED AT DEPARTURE: 07/03/22 02:05 Medical Decision Making <GINI Thompson - Last Filed: 07/03/22 23:29> 47-year-old gentleman who presents to the ED for epigastric pain, history of gastric bypass Secondary to presentation and clinical exam, CT abdomen and pelvis was ordered Diagnostic labs are reassuring Will transition care to Dr. Almita Fritz pending CT abdomen and pelvis in stable condition HPI <GINI Thompson - Last Filed: 07/03/22 23:29> General Date/Time Provider Initiated Documentation: 07/02/22 21:41. HPI Narrative: This 47-year-old male with history of gastric bypass, hypertension presents with report of epigastric pain and lower abdominal pain that came on suddenly after eating steak and mashed potatoes. He does report that he drinks heavily and daily. Gastric bypass was approximately 4 years ago. Denies any nausea or vomiting. Denies known exacerbating or alleviating factors. Denies any chest pain or shortness of breath. Denies radiation of his discomfort. Denies fever or chills. Related Data Home Medications Medication Instructions Recorded Confirmed acetaminophen 500 mg tablet 1,000 mg PO Q8H PRN PRN #60 tabs 05/14/20 07/03/22 (Tylenol Extra Strength) celecoxib 200 mg capsule 200 mg PO BID PRN pain #60 caps 04/04/21 07/03/22 lisinopril 10 mg tablet 20 mg PO DAILY #60 tabs 08/16/21 07/03/22 Previous Rx's Medication Instructions Recorded acetaminophen 500 mg tablet 1,000 mg PO Q8H PRN PRN #60 tabs 05/14/20 (Tylenol Extra Strength) celecoxib 200 mg capsule 200 mg PO BID PRN pain #60 caps 04/04/21 lisinopril 10 mg tablet 20 mg PO DAILY #60 tabs 08/16/21 Allergies Allergy/AdvReac Type Severity Reaction Status Date / Time No Known Drug Allergies Allergy Unverified 05/09/21 08:08 General Stated Complaint: Abd Prob DESIRE: 3 PFSH <GINI Thompson - Last Filed: 07/03/22 23:29> All Active Problems (Updated 07/03/22 @ 07:23 by Gerardo Kyle MD) Diverticula of small intestine (Acute) Arthrofibrosis of total knee arthroplasty (Acute) RIGHT S/P manipulation under anesthesia: 05/14/2020 S/P arthroscopic synovectomy: 04/27/2021 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 Essential hypertension (Acute 03/03/13) Medical History Bilateral knee pain Chronic diarrhea 05/21/15 COLONOSCOPY; DR. ITALO FIGUEROA-04 February 2021-sore throat, stuffy nose Diverticulosis HTN (hypertension) Hyperlipidemia Hyperuricemia Lip lesion Low back pain Obesity Obstructive sleep apnea syndrome 12/25 SLEEP STUDY @ [facility]: SEVERE OBSTRUCTIVE SLEEP APNEA; CPAP ADVISED. Prediabetes Rectal bleeding Surgical History Arthroplasty of knee Pt had a scope of knee previous to his coming in today for a total knee. 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 stated Cleaned out around the nerves laminectomy/discectomy Family History Mother No problems noted. Father No problems noted. Brother No problems noted. Grandfather No problems noted. Grandfather No problems noted. Grandmother No problems noted. Grandmother Diabetes Brother No problems noted. Brother No problems noted. Son No problems noted. Social History Smoking/Tobacco Use Status: Former Tobacco Use Tobacco: How many years used: 10 Smokeless tobacco user: chewing tobacco Smoking risk assessment performed?: Yes Alcohol Intake: current Alcohol Intake frequency: a few times a week Alcohol type: beer and hard liquor Drug use: Never Substance use type: does not use Details: alcohol on sunday night Household members: other Details: 3 current occupation: TEACHER Pets and animals: Yes Pets and animals: dog(s) Current gender identity: male Frequency: daily Sushila/Shinto: Synagogue Do you feel safe at home: Yes Do you feel safe in your relationship?: Yes Exam <GINI Thompson - Last Filed: 07/03/22 23:29> Const General: cooperative and no acute distress Orientation: alert and oriented x3 Eyes Sclera: sclerae normal Pupils: PERRL Resp Effort & Inspection: normal respiratory effort Auscultation: clear to auscultation bilaterally Cardio Rate: regular rate Rhythm: regular rhythm GI Other: Epigastric tenderness on exam, no rebound or guarding, umbilical hernia, easily reducible, Skin General skin exam: no rashes or lesions noted Neuro General: patient alert and patient oriented x3 Course <GINI Thompson - Last Filed: 07/03/22 23:29> Vital Signs Vital signs: Vital Signs Temperature 37.2 C 07/02/22 21:35 Pulse 100 H 07/02/22 21:35 Respiratory Rate 20 07/02/22 21:35 Blood Pressure 144/92 H 07/02/22 21:35 Pulse Oximetry 97 07/02/22 21:35 Temperature 37.2 C 07/02/22 21:35 Temperature Source Oral 07/02/22 21:35 Pulse 100 H 07/02/22 21:35 Respiratory Rate 20 07/02/22 21:35 Respiratory Effort Normal, Non-Labored 07/02/22 22:36 Blood Pressure 144/92 H 07/02/22 21:35 Pulse Oximetry 97 07/02/22 21:35 Oxygen Delivery Method Room Air 07/02/22 21:35 Oxygen Flow Rate 0 07/02/22 21:35 Pain Level 9 07/02/22 21:35 Lab/Test Results Lab/Test Results: Laboratory Tests Range/Units 07/02/22 07/02/22 07/02/22 21:45 22:07 22:07 WBC (4.4-10.8) 10^3/uL 8.47 RBC (4.36-5.78) 10^6/uL 4.65 Hgb (13.5-17.5) g/dL 15.1 Hct (40.0-50.0) % 42.3 MCV (80-95) fL 91 MCH (27.0-33.0) pg 32.5 MCHC (32.0-36.0) % 35.7 RDW (11.8-14.1) % 13.2 Plt Count (130-400) 10^3/uL 157 MPV (8.0-11.0) fL 9.7 Immature Gran % 0.6 Neutrophils % 65.8 Lymphocytes % 22.7 Monocytes % 9.2 Eosinophils % 1.1 Basophils % 0.6 Nucleated RBC % (0.0-0.3) % 0.0 Absolute Neutrophils (1.2-6.7) 10^3/uL 5.58 Absolute Lymphocytes (1.2-3.4) 10^3/uL 1.92 Absolute Monocytes (0.1-0.8) 10^3/uL 0.78 Absolute Eosinophils (0.0-0.7) 10^3/uL 0.09 Absolute Basophils (0.0-0.2) 10^3/uL 0.05 Sodium (136-145) mmol/L 143 Potassium (3.5-5.1) mmol/L 4.1 Chloride (98-107) mmol/L 108 H Carbon Dioxide (21.0-32.0) mmol/L 28.7 Anion Gap (3-11) mmol/L 6.3 BUN (7-18) mg/dL 17 Creatinine (0.70-1.30) mg/dL 1.0 Est GFR (CKD-EPI 2020) (mL/min/1.73m2) 92.26 Glucose (74-106) mg/dL 127 H Calcium (8.5-10.1) mg/dL 8.6 Total Bilirubin (0.2-1.0) mg/dL 0.7 AST (15-37) U/L 25 ALT (16-63) U/L 46 Alkaline Phosphatase (46-116) U/L 76 Troponin I (<or=60) ng/L Total Protein (6.4-8.2) g/dL 7.5 Albumin (3.4-5.0) g/dL 3.8 Lipase (16-77) U/L 51 Urine Color (Yellow) Yellow Urine Clarity (Clear) Clear Urine pH (5-8) 6.0 Ur Specific [place] (1.005-1.025) >= 1.030 H Urine Protein (Negative) mg/dL Negative Urine Ketones (Negative) mg/dL 15 H Urine Blood (Negative) Trace-intact H Urine Nitrite (Negative) Negative Urine Bilirubin (Negative) Negative Urine Urobilinogen (Up to 0.2) mg/dL 1.0 H Ur Leukocyte Esterase (Negative) Negative Urine RBC (0-2) HPF 3-5 H Urine WBC (0-5) HPF Negative Ur Epithelial Cells (Negative) HPF Rare Urine Crystals (Negative) HPF Negative Urine Bacteria (Negative) HPF Rare Urine Casts (Negative) LPF Negative Urine Mucus (Negative) Moderate Ur Culture Indicated? No Urine Glucose (Negative) mg/dL Negative Range/Units 07/02/22 22:07 WBC (4.4-10.8) 10^3/uL RBC (4.36-5.78) 10^6/uL Hgb (13.5-17.5) g/dL Hct (40.0-50.0) % MCV (80-95) fL MCH (27.0-33.0) pg MCHC (32.0-36.0) % RDW (11.8-14.1) % Plt Count (130-400) 10^3/uL MPV (8.0-11.0) fL Immature Gran % Neutrophils % Lymphocytes % Monocytes % Eosinophils % Basophils % Nucleated RBC % (0.0-0.3) % Absolute Neutrophils (1.2-6.7) 10^3/uL Absolute Lymphocytes (1.2-3.4) 10^3/uL Absolute Monocytes (0.1-0.8) 10^3/uL Absolute Eosinophils (0.0-0.7) 10^3/uL Absolute Basophils (0.0-0.2) 10^3/uL Sodium (136-145) mmol/L Potassium (3.5-5.1) mmol/L Chloride (98-107) mmol/L Carbon Dioxide (21.0-32.0) mmol/L Anion Gap (3-11) mmol/L BUN (7-18) mg/dL Creatinine (0.70-1.30) mg/dL Est GFR (CKD-EPI 2020) (mL/min/1.73m2) Glucose (74-106) mg/dL Calcium (8.5-10.1) mg/dL Total Bilirubin (0.2-1.0) mg/dL AST (15-37) U/L ALT (16-63) U/L Alkaline Phosphatase (46-116) U/L Troponin I (<or=60) ng/L < 50 Total Protein (6.4-8.2) g/dL Albumin (3.4-5.0) g/dL Lipase (16-77) U/L Urine Color (Yellow) Urine Clarity (Clear) Urine pH (5-8) Ur Specific [place] (1.005-1.025) Urine Protein (Negative) mg/dL Urine Ketones (Negative) mg/dL Urine Blood (Negative) Urine Nitrite (Negative) Urine Bilirubin (Negative) Urine Urobilinogen (Up to 0.2) mg/dL Ur Leukocyte Esterase (Negative) Urine RBC (0-2) HPF Urine WBC (0-5) HPF Ur Epithelial Cells (Negative) HPF Urine Crystals (Negative) HPF Urine Bacteria (Negative) HPF Urine Casts (Negative) LPF Urine Mucus (Negative) Ur Culture Indicated? Urine Glucose (Negative) mg/dL PAWSS <GINI Thompson - Last Filed: 07/03/22 23:29> Have you Been Recently Intoxicated or Drunk Within the Last 30 days?: No Have you Ever Experienced Previous Episodes of Alcohol Withdrawal?: No Have you ever Experienced Withdrawal Seizures?: No Have you ever Experienced Delirium Tremens(DT)s?: No Have you ever undergone Alcohol Rehabilitation Treatment (i.e, inpt ot outpatient treatment programs)?: No Have you ever Experienced Blackouts?: No Have you ever Combined Alcohol with other Downers within the last 90 days?: No Have you ever Combined Alcohol with any other Substance of Abuse during the last 90 days?: No Positive Blood Alcohol level on Presentation? [PCS.BAL]: No Evidence of Increased Autonomic Activity (i.e. HR>120, tremor, sweating, agitation, nausea)?: No Result: 0 <Almita Fritz DO - Last Filed: 07/03/22 01:36> Result: 0
[2022-07-02] MEDS: Normal Saline Flush 10 ML SYR IVP (23:23)
[2022-07-02] MEDS: Omnipaque 350 MG/ML 100 ML BTL IJ (23:24)
[2022-07-02] MEDS: Normal Saline - Diluent 50 ML VIAL IJ (23:24)
[2022-07-02 23:50] VITALS: BP 171/98; PULSE 98; RESP 18; TEMP 37.4; O2SAT 97
--- NOTE | 2022-07-03 00:33 | DI.VRAD_ITS ---
PROCEDURE INFORMATION: Exam: CT Abdomen And Pelvis With Contrast Exam date and time: 07/02/2022 11:38 PM Age: 47 years old Clinical indication: Localized; Prior surgery; Surgery date: 6+ months; Surgery type: Gastric bypass; Patient HX: Left sided abdominal pain TECHNIQUE: Imaging protocol: Computed tomography of the abdomen and pelvis with contrast. Radiation optimization: All CT scans at this facility use at least one of these dose optimization techniques: automated exposure control; mA and/or kV adjustment per patient size (includes targeted exams where dose is matched to clinical indication); or iterative reconstruction. Contrast material: OMNIPAQUE 350; Contrast volume: 100 ml; Contrast route: INTRAVENOUS (IV); Other contrast: Oral, omnipaque 350, 50; COMPARISON: MRI R LOWER JOINT WO CONT 05/24/2016 10:44 PM FINDINGS: Liver: Fatty infiltration. No mass. Gallbladder and bile ducts: Large gallstone in the fundus. No ductal dilation. Pancreas: Normal. No ductal dilation. Spleen: Normal. No splenomegaly. Adrenal glands: Angiomyolipoma suspected left adrenal gland measuring 3.8 cm Kidneys and ureters: Normal. No hydronephrosis. Stomach and bowel: Small bowel diverticulum with surrounding mild infiltration coronal image 42 in the mid to lower left abdomen. Focus of air sagittal image 60 along the anterior small bowel wall not clearly intraluminal Colonic diverticulosis. No obstruction. Appendix: No evidence of appendicitis. Intraperitoneal space: No significant fluid collection. Vasculature: Unremarkable. No abdominal aortic aneurysm. Lymph nodes: Unremarkable. No enlarged lymph nodes. Urinary bladder: Unremarkable as visualized. Reproductive: Unremarkable as visualized. Bones/joints: Degenerative changes in the spine. No acute fracture. Soft tissues: Moderate fat containing periumbilical hernia IMPRESSION: Small bowel diverticulitis as noted. Focal area of air along the anterior small bowel wall sagittal image 60 not clearly intraluminal. Developing interloop abscess not excluded Large gallstone Left adrenal myelolipoma as noted. Comparison with prior images would be helpful Dictated and Authenticated by: José Luis Toure MD. Ordering:LUCIO Barr MD
--- NOTE | 2022-07-03 01:02 | ED.PROG_ITS ---
Date of service: 07/02/22 Time of Service: 23:30 Medical Decision Making 2330 --please see GINI Kurtz note for initial presentation, exam and plan. Case endorsed to follow-up on imaging and final disposition. 0100 --Labs and imaging reviewed. Normal white blood cell count. Urinalysis notes 3-5 RBCs but no evidence of infection. CT reviewed and notes Small bowel diverticulitis as noted.? Focal area of air along the anterior small bowel wall sagittal image 60 not clearly intraluminal. Developing interloop abscess not excluded Large gallstone Left adrenal myelolipoma as noted. Comparison with prior images would be helpful. Patient reassessed and he states his pain is returning. His abdomen is obese and tender in the left lower quadrant. He also has an umbilical hernia with overlying mild erythema which is tender to palpation and not reducible but no mention of obstruction on CT. Patient states he has had this umbilical hernia for approximately 10 years and has not had pain here before. Case discussed with Dr. Kyle who reviewed imaging and will admit for IV antibiotics. Recommends IV Cipro and Flagyl. Patient is agreeable with plan for admission. 0130 --Temp 100.3. He is nontoxic appearing. IV Tylenol has been ordered for pain. IV Zofran ordered as needed for nausea. EKG notes a reassuring QTc. Medical Records Medical records reviewed: Yes I reviewed the patient's medical records. Imaging Data Radiologic Study: Radiologist's impression: CT Abdomen And Pelvis With Contrast Exam date and time: 07/02/2022 11:38 PM Age: 47 years old Clinical indication: Localized; Prior surgery; Surgery date: 6+ months; Surgery type: Gastric bypass; Patient HX: Left sided abdominal pain TECHNIQUE: Imaging protocol: Computed tomography of the abdomen and pelvis with contrast. Radiation optimization: All CT scans at this facility use at least one of these dose optimization techniques: automated exposure control; mA and/or kV adjustment per patient size (includes targeted exams where dose is matched to clinical indication); or iterative reconstruction. Contrast material: OMNIPAQUE 350; Contrast volume: 100 ml; Contrast route: INTRAVENOUS (IV);? Other contrast: Oral, omnipaque 350, 50; COMPARISON: MRI R LOWER JOINT WO CONT 05/24/2016 10:44 PM FINDINGS: Liver:? Fatty infiltration. No mass. Gallbladder and bile ducts:? Large gallstone in the fundus. No ductal dilation. Pancreas: Normal. No ductal dilation. Spleen: Normal. No splenomegaly. Adrenal glands:? Angiomyolipoma suspected left adrenal gland measuring 3.8 cm Kidneys and ureters: Normal. No hydronephrosis. Stomach and bowel:? Small bowel diverticulum with surrounding mild infiltration coronal image 42 in the mid to lower left abdomen. Focus of air sagittal image 60 along the anterior small bowel wall not clearly intraluminal Colonic diverticulosis. No obstruction. Appendix: No evidence of appendicitis. Intraperitoneal space: No significant fluid collection. Vasculature: Unremarkable. No abdominal aortic aneurysm. Lymph nodes: Unremarkable. No enlarged lymph nodes. Urinary bladder: Unremarkable as visualized. Reproductive: Unremarkable as visualized. Bones/joints:? Degenerative changes in the spine. No acute fracture. Soft tissues:? Moderate fat containing periumbilical hernia IMPRESSION: Small bowel diverticulitis as noted.? Focal area of air along the anterior small bowel wall sagittal image 60 not clearly intraluminal. Developing interloop abscess not excluded Large gallstone Left adrenal myelolipoma as noted. Comparison with prior images would be helpful Lab Data Lab results reviewed: Yes I reviewed the patient's lab results. Labs: Laboratory Tests Range/Units 07/02/22 07/02/22 07/02/22 21:45 22:07 22:07 WBC (4.4-10.8) 10^3/uL 8.47 RBC (4.36-5.78) 10^6/uL 4.65 Hgb (13.5-17.5) g/dL 15.1 Hct (40.0-50.0) % 42.3 MCV (80-95) fL 91 MCH (27.0-33.0) pg 32.5 MCHC (32.0-36.0) % 35.7 RDW (11.8-14.1) % 13.2 Plt Count (130-400) 10^3/uL 157 MPV (8.0-11.0) fL 9.7 Immature Gran % 0.6 Neutrophils % 65.8 Lymphocytes % 22.7 Monocytes % 9.2 Eosinophils % 1.1 Basophils % 0.6 Nucleated RBC % (0.0-0.3) % 0.0 Absolute Neutrophils (1.2-6.7) 10^3/uL 5.58 Absolute Lymphocytes (1.2-3.4) 10^3/uL 1.92 Absolute Monocytes (0.1-0.8) 10^3/uL 0.78 Absolute Eosinophils (0.0-0.7) 10^3/uL 0.09 Absolute Basophils (0.0-0.2) 10^3/uL 0.05 Sodium (136-145) mmol/L 143 Potassium (3.5-5.1) mmol/L 4.1 Chloride (98-107) mmol/L 108 H Carbon Dioxide (21.0-32.0) mmol/L 28.7 Anion Gap (3-11) mmol/L 6.3 BUN (7-18) mg/dL 17 Creatinine (0.70-1.30) mg/dL 1.0 Est GFR (CKD-EPI 2020) (mL/min/1.73m2) 92.26 Glucose (74-106) mg/dL 127 H Calcium (8.5-10.1) mg/dL 8.6 Total Bilirubin (0.2-1.0) mg/dL 0.7 AST (15-37) U/L 25 ALT (16-63) U/L 46 Alkaline Phosphatase (46-116) U/L 76 Troponin I (<or=60) ng/L Total Protein (6.4-8.2) g/dL 7.5 Albumin (3.4-5.0) g/dL 3.8 Lipase (16-77) U/L 51 Urine Color (Yellow) Yellow Urine Clarity (Clear) Clear Urine pH (5-8) 6.0 Ur Specific [place] (1.005-1.025) >= 1.030 H Urine Protein (Negative) mg/dL Negative Urine Ketones (Negative) mg/dL 15 H Urine Blood (Negative) Trace-intact H Urine Nitrite (Negative) Negative Urine Bilirubin (Negative) Negative Urine Urobilinogen (Up to 0.2) mg/dL 1.0 H Ur Leukocyte Esterase (Negative) Negative Urine RBC (0-2) HPF 3-5 H Urine WBC (0-5) HPF Negative Ur Epithelial Cells (Negative) HPF Rare Urine Crystals (Negative) HPF Negative Urine Bacteria (Negative) HPF Rare Urine Casts (Negative) LPF Negative Urine Mucus (Negative) Moderate Ur Culture Indicated? No Urine Glucose (Negative) mg/dL Negative Range/Units 07/02/22 07/03/22 22:07 01:04 WBC (4.4-10.8) 10^3/uL RBC (4.36-5.78) 10^6/uL Hgb (13.5-17.5) g/dL Hct (40.0-50.0) % MCV (80-95) fL MCH (27.0-33.0) pg MCHC (32.0-36.0) % RDW (11.8-14.1) % Plt Count (130-400) 10^3/uL MPV (8.0-11.0) fL Immature Gran % Neutrophils % Lymphocytes % Monocytes % Eosinophils % Basophils % Nucleated RBC % (0.0-0.3) % Absolute Neutrophils (1.2-6.7) 10^3/uL Absolute Lymphocytes (1.2-3.4) 10^3/uL Absolute Monocytes (0.1-0.8) 10^3/uL Absolute Eosinophils (0.0-0.7) 10^3/uL Absolute Basophils (0.0-0.2) 10^3/uL Sodium (136-145) mmol/L Potassium (3.5-5.1) mmol/L Chloride (98-107) mmol/L Carbon Dioxide (21.0-32.0) mmol/L Anion Gap (3-11) mmol/L BUN (7-18) mg/dL Creatinine (0.70-1.30) mg/dL Est GFR (CKD-EPI 2020) (mL/min/1.73m2) Glucose (74-106) mg/dL Calcium (8.5-10.1) mg/dL Total Bilirubin (0.2-1.0) mg/dL AST (15-37) U/L ALT (16-63) U/L Alkaline Phosphatase (46-116) U/L Troponin I (<or=60) ng/L < 50 Cancelled Total Protein (6.4-8.2) g/dL Albumin (3.4-5.0) g/dL Lipase (16-77) U/L Urine Color (Yellow) Urine Clarity (Clear) Urine pH (5-8) Ur Specific [place] (1.005-1.025) Urine Protein (Negative) mg/dL Urine Ketones (Negative) mg/dL Urine Blood (Negative) Urine Nitrite (Negative) Urine Bilirubin (Negative) Urine Urobilinogen (Up to 0.2) mg/dL Ur Leukocyte Esterase (Negative) Urine RBC (0-2) HPF Urine WBC (0-5) HPF Ur Epithelial Cells (Negative) HPF Urine Crystals (Negative) HPF Urine Bacteria (Negative) HPF Urine Casts (Negative) LPF Urine Mucus (Negative) Ur Culture Indicated? Urine Glucose (Negative) mg/dL Sign Out Sign Out Data: Sign Out Comment: pending ct abdomen and pelvis Last updated by Cortney Kurtz PA at 07/02/22 23:55 Discharge Plan Discharge Details Chief Complaint: Abd Prob Admit Date/Time: 07/03/22 01:27 Admit Provider: Gerardo Kyle Attending Provider: Gerardo Kyle Primary Care Provider: Aziza Davis ED Provider: Cortney Kurtz
--- NOTE | 2022-07-03 01:15 | W.PM.HP.N ---
Date of service: 07/03/22 Time of Service: 01:15 Assessment and Plan Assessment and plan (1) Diverticula of small intestine: Status: Acute Assessment and plan: By imaging, this does seem consistent with small bowel diverticulitis. Meckel's diverticulitis could also be within the differential, although the location is a little bit atypical. Although he is fairly tender in the area, his white blood cell count vital signs are reassuring at this point. I will give the intravenous antibiotics some time to see if that improves his symptoms. I did explain that if he were to decompensate, he would most likely need percutaneous drainage, or even surgical intervention. History of Present Illness History of Present Illness Chief Complaint: Abdominal pain Narrative: Vivek is 47 years old. Comes to the emergency department yesterday after about 24 hours of mostly left-sided mid abdominal pain. He describes it as a crampy stabbing feeling. He has some mild associated loss of appetite, but denies any nausea or vomiting. He denied any subjective fevers at home. Has been having normal bowel function up through yesterday. When he was in the emergency department, he underwent a CAT scan of the abdomen and pelvis that demonstrated inflammation of a portion of the small intestine, with some associated mesenteric stranding, and possibly a small amount of extraluminal free air. There was no free fluid. Contrast passes through the area without active extravasation. CAT scan was interpreted as small bowel diverticulitis. He has a past surgical history that is most significant for sleeve gastrectomy in 2018. He also has an umbilical hernia its been present for approximately 10 years. Review of Systems Constitutional Constitutional: Denies body ache(s), Reports fatigue and Denies fever(s) Eyes Eyes: Reports system reviewed and no additional complaints, except as documented ENT Ears, Nose, Mouth, and Throat: Reports system reviewed and no additional complaints, except as documented Cardiovascular Cardiovascular: Denies chest pain and Denies dyspnea Respiratory Respiratory: Denies chest congestion, Denies cough and Denies dyspnea Gastrointestinal Gastrointestinal: Reports abdominal pain, Denies change in bowel habits, Denies nausea and Denies vomiting Genitourinary Genitourinary: Reports system reviewed and no additional complaints, except as documented Musculoskeletal Musculoskeletal: Reports back pain Neurologic Neurologic: Reports system reviewed and no additional complaints, except as documented Endocrine Endocrine: Reports fatigue Hematologic/Lymphatic Hematologic/Lymphatic: Denies easy bleeding and Denies easy bruising PFSH All Active Problems (Updated 07/03/22 @ 07:23 by Gerardo Kyle MD) Diverticula of small intestine (Acute) Arthrofibrosis of total knee arthroplasty (Acute) RIGHT S/P manipulation under anesthesia: 05/14/2020 S/P arthroscopic synovectomy: 04/27/2021 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 Essential hypertension (Acute 03/03/13) Medical History Bilateral knee pain Chronic diarrhea 05/21/15 COLONOSCOPY; DR. ITALO FIGUEROA-04 February 2021-sore throat, stuffy nose Diverticulosis HTN (hypertension) Hyperlipidemia Hyperuricemia Lip lesion Low back pain Obesity Obstructive sleep apnea syndrome 12/25 SLEEP STUDY @ [facility]: SEVERE OBSTRUCTIVE SLEEP APNEA; CPAP ADVISED. Prediabetes Rectal bleeding Surgical History Arthroplasty of knee Pt had a scope of knee previous to his coming in today for a total knee. 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 stated Cleaned out around the nerves laminectomy/discectomy Family History Mother No problems noted. Father No problems noted. Brother No problems noted. Grandfather No problems noted. Grandfather No problems noted. Grandmother No problems noted. Grandmother Diabetes Brother No problems noted. Brother No problems noted. Son No problems noted. Social History Smoking/Tobacco Use Status: Former Tobacco Use Tobacco: How many years used: 10 Smokeless tobacco user: chewing tobacco Smoking risk assessment performed?: Yes Alcohol Intake: current Alcohol Intake frequency: a few times a week Alcohol type: beer and hard liquor Drug use: Never Substance use type: does not use Details: alcohol on sunday night Household members: other Details: 3 current occupation: TEACHER Pets and animals: Yes Pets and animals: dog(s) Current gender identity: male Frequency: daily Sushila/Faith: Religious Do you feel safe at home: Yes Do you feel safe in your relationship?: Yes Meds Allergies and Home Medications Allergies Allergy/AdvReac Type Severity Reaction Status Date / Time No Known Drug Allergies Allergy Unverified 05/09/21 08:08 Home Medications Medication Instructions Recorded Confirmed Type acetaminophen 500 mg tablet 1,000 mg PO Q8H PRN PRN #60 tabs 05/14/20 07/03/22 Rx (Tylenol Extra Strength) celecoxib 200 mg capsule 200 mg PO BID PRN pain #60 caps 04/04/21 07/03/22 Rx lisinopril 10 mg tablet 20 mg PO DAILY #60 tabs 08/16/21 07/03/22 Rx Exam Const General: cooperative, no acute distress and well developed Nutritional Appearance: overweight Orientation: alert, awake and oriented x3 Eyes General: appearance normal, both eyes and all related structures Alignment and Position: alignment normal Conjunctivae: conjunctivae normal Neck Neck: normal visual inspection, full ROM and no lymphadenopathy Chest Chest: normal inspection of the chest Resp Effort & Inspection: normal respiratory effort and able to speak in complete sentences Auscultation: clear to auscultation bilaterally Cardio Rate: regular rate Rhythm: regular rhythm Heart Sounds: S1 normal and S2 normal GI Inspection: normal to inspection, non-distended and large pannus Palpation: soft and tender (Left abdomen) Percussion: normal to percussion Auscultation: normal bowel sounds Other: Reducible umbilical hernia Skin General skin exam: no rashes or lesions noted and elasticity normal Extrem Right lower extremity: no edema Left lower extremity: no edema Results Imaging Abdomen CT scan report/results: report reviewed and image reviewed CT scan - pelvis: report reviewed and image reviewed Labs 07/02/22 22:07 07/02/22 22:07 Labs: Laboratory Results - last 24 hr 07/02/22 07/02/22 07/02/22 21:45 22:07 22:07 WBC 8.47 RBC 4.65 Hgb 15.1 Hct 42.3 MCV 91 MCH 32.5 MCHC 35.7 RDW 13.2 Plt Count 157 MPV 9.7 Immature Gran % 0.6 Neutrophils % 65.8 Lymphocytes % 22.7 Monocytes % 9.2 Eosinophils % 1.1 Basophils % 0.6 Nucleated RBC % 0.0 Absolute Neutrophils 5.58 Absolute Lymphocytes 1.92 Absolute Monocytes 0.78 Absolute Eosinophils 0.09 Absolute Basophils 0.05 Sodium 143 Potassium 4.1 Chloride 108 H Carbon Dioxide 28.7 Anion Gap 6.3 BUN 17 Creatinine 1.0 Est GFR (CKD-EPI 2020) 92.26 Glucose 127 H Calcium 8.6 Total Bilirubin 0.7 AST 25 ALT 46 Alkaline Phosphatase 76 Troponin I Total Protein 7.5 Albumin 3.8 Lipase 51 Urine Color Yellow Urine Clarity Clear Urine pH 6.0 Ur Specific [place] >= 1.030 H Urine Protein Negative Urine Ketones 15 H Urine Blood Trace-intact H Urine Nitrite Negative Urine Bilirubin Negative Urine Urobilinogen 1.0 H Ur Leukocyte Esterase Negative Urine RBC 3-5 H Urine WBC Negative Ur Epithelial Cells Rare Urine Crystals Negative Urine Bacteria Rare Urine Casts Negative Urine Mucus Moderate Ur Culture Indicated? No Urine Glucose Negative 07/02/22 07/03/22 22:07 01:04 WBC RBC Hgb Hct MCV MCH MCHC RDW Plt Count MPV Immature Gran % Neutrophils % Lymphocytes % Monocytes % Eosinophils % Basophils % Nucleated RBC % Absolute Neutrophils Absolute Lymphocytes Absolute Monocytes Absolute Eosinophils Absolute Basophils Sodium Potassium Chloride Carbon Dioxide Anion Gap BUN Creatinine Est GFR (CKD-EPI 2020) Glucose Calcium Total Bilirubin AST ALT Alkaline Phosphatase Troponin I < 50 Cancelled Total Protein Albumin Lipase Urine Color Urine Clarity Urine pH Ur Specific [place] Urine Protein Urine Ketones Urine Blood Urine Nitrite Urine Bilirubin Urine Urobilinogen Ur Leukocyte Esterase Urine RBC Urine WBC Ur Epithelial Cells Urine Crystals Urine Bacteria Urine Casts Urine Mucus Ur Culture Indicated? Urine Glucose Last Vital Signs Temp 99.3 F 07/02/22 23:50 Pulse 98 H 07/02/22 23:50 Resp 18 07/02/22 23:50 BP 171/98 H 07/02/22 23:50 Pulse Ox 97 07/02/22 23:50 PAWSS Have you Been Recently Intoxicated or Drunk Within the Last 30 days?: No Have you Ever Experienced Previous Episodes of Alcohol Withdrawal?: No Have you ever Experienced Withdrawal Seizures?: No Have you ever Experienced Delirium Tremens(DT)s?: No Have you ever undergone Alcohol Rehabilitation Treatment (i.e, inpt ot outpatient treatment programs)?: No Have you ever Experienced Blackouts?: No Have you ever Combined Alcohol with other Downers within the last 90 days?: No Have you ever Combined Alcohol with any other Substance of Abuse during the last 90 days?: No Positive Blood Alcohol level on Presentation? [PCS.BAL]: No Evidence of Increased Autonomic Activity (i.e. HR>120, tremor, sweating, agitation, nausea)?: No Result: 0 Time Spent Time spent with Patient: 55-74 minutes Time was spent: preparing to see the patient(eg.review tests), obtaining and/or reviewing separately otained hiistory, ordering medications,tests, procedures, indepentently interpreting results and counseling the patient
[2022-07-03 01:22] VITALS: BP 158/90; PULSE 106; RESP 18; TEMP 37.9; O2SAT 97
[2022-07-03] MEDS: ACETAMINOPHEN 1,000 MG/100 ML BTL 400 MG IVPB (01:23)
[2022-07-03] MEDS: Normal Saline 1,000 ML 150 ML IV ×3 (01:37→17:36)
[2022-07-03] MEDS: metroNIDAZOLE 500 MG/100 ML BAG 100 MG IVPB ×4 (01:38→20:18)
[2022-07-03 01:45] LABS: Source Nasal/Nares
[2022-07-03 02:12] VITALS: BP 154/94; PULSE 107; RESP 18; TEMP 37.8; O2SAT 94
[2022-07-03 02:15] LABS: COVID-19 PCR Negative (Negative)
[2022-07-03] MEDS: CIPROFLOXACIN 400 MG/200 ML BAG 200 MG IVPB ×3 (02:49→21:28)
[2022-07-03] MEDS: HYDROmorphone 2 MG/ML SYR 0.5 MG IVP (02:51)
[2022-07-03] MEDS: Normal Saline Flush 10 ML SYR IVP (08:12)
--- NOTE | 2022-07-03 09:38 | INITIAL_ITS ---
- If Service Date Differs Date of service: 07/03/22 Time of Service: 09:38 Care Management Initial Assess REASON FOR HOSPITALIZATION:: Diverticulitis PAST MEDICAL HISTORY/PAST SURGICAL HISTORY:: All Active Problems (Updated 07/03/22 @ 07:23 by Gerardo Kyle MD). Diverticula of small intestine (Acute). Arthrofibrosis of total knee arthroplasty (Acute). RIGHT. S/P manipulation under anesthesia: 05/14/2020. S/P arthroscopic synovectomy: 04/27/2021. 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 Difficult intubation (Acute). Grade I view, steep angle into glottic opening to pass ETT. Essential hypertension (Acute 03/03/13). Medical History . Bilateral knee pain. Chronic diarrhea. 05/21/15 COLONOSCOPY; DR. PUCKETT. COVID- 19. January 2021-sore throat, stuffy nose. Diverticulosis. HTN (hypertension). Hyperlipidemia. Hyperuricemia. Lip lesion. Low back pain. Obesity. Obstructive sleep apnea syndrome. 12/25 SLEEP STUDY @ [facility]: SEVERE OBSTRUCTIVE SLEEP APNEA; CPAP ADVISED. Prediabetes. Rectal bleeding. Surgical History . Arthroplasty of knee. Pt had a scope of knee previous to his coming in today for a total knee. H/O excision of mass (~04/27/21). benign tumor of lower lip. H/O gastric bypass. History of total right knee replacement (03/10/20). lumbar spine surgery. Per pt. stated Cleaned out around the ner ves laminectomy/discectomy PREVIOUS FUNCTIONAL STATUS/SOCIAL/FAMILY SUPPORTS:: Vivek lives in [place], [place] with his Alexsandra and his son. 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 Vivek is independent at baseline and does not receive any community services. CURRENT FUNCTIONAL STATUS:: Vivek was lying in bed when CM met with him. He was polite but did not maintain eye contact or engage with CM. Vivek stated that he is still having a lot of pain but that it is slightly better than when he first arrived. His WBC is slightly increased since yesterday, he is tachycardic and is febrile with a temp of 38C. ADVANCE DIRECTIVES:: none on file Has patient been provided with info about the portal/API?: Yes Did the patient sign up for the portal?: Yes (previously) CODE STATUS:: Full Code INSURANCE COVERAGE / FINANCIAL ISSUES:: /[facility] CURRENT HOME/COMMUNITY SERVICES/EQUIPMENT:: none PRIMARY CARE PHYSICIAN:: Aziza Davis POTENTIAL DISCHARGE NEEDS:: follow up with surgeon, PCP and plan of care PATIENT/FAMILY EDUCATION NEEDS:: Review of discharge instructions, activity, limitations, diet, follow up plan, Ask Me Three TRANSPORTATION:: via private vehicle with family PLAN:: Anticipate Vivek will discharge home with no new services when medically cleared by provider. He will follow up with his surgeon , PCP and plan of care and transport with family. CM will follow and assess for discharge concerns.
[2022-07-03 10:09] VITALS: BP 129/81; PULSE 104; RESP 12; TEMP 38; O2SAT 95
--- NOTE | 2022-07-03 11:30 | PHA.REVIEW2 ---
Pharmacy Admission Review - Admission Clinical Review (Last Reviewed 07/03/22 @ 07:18 by Gerardo Kyle MD) Diverticula of small intestine (Acute) No Known Drug Allergies Allergy (Unverified 05/09/21 08:08) Resuscitation Status Full Code Height 6 ft 4 in Weight 152.2 kg - Renal Dosing Renal Dosing: BUN 17 mg/dL (7-18) 07/02/22 22:07 Creatinine 1.0 mg/dL (0.70-1.30) 07/02/22 22:07 Medications needing adjustments: Reviewed (Crcl >140 mL/min current meds okay) - Anticoagulation Anticoagulation: Hgb 15.1 g/dL (13.5-17.5) 07/02/22 22:07 Hct 42.3 % (40.0-50.0) 07/02/22 22:07 Plt Count 157 10^3/uL (130-400) 07/02/22 22:07 Creatinine 1.0 mg/dL (0.70-1.30) 07/02/22 22:07 DVT Prophylaxis: Intervened (will ask provider about) Therapeutic Anticoagulation: N/A - Opiate Usage Evaluate Pain Scale/Pains Meds: Reviewed Scheduled Bowel Reg ordered if on Opiates?: No (provider aware) - Relevant Labs Sodium 143 mmol/L (136-145) 07/02/22 22:07 Potassium 4.1 mmol/L (3.5-5.1) 07/02/22 22:07 Chloride 108 mmol/L (98-107) H 07/02/22 22:07 Electrolytes, C-Reactive P, ESR: Reviewed - DM Control DM Control: Glucose 127 mg/dL (74-106) H 07/02/22 22:07 DM Control: Reviewed (prediabetes per medical history, no A1c on file, not taking any meds for this at home) - Cardiac Review Cardiac Review: Troponin I Cancelled 07/03/22 01:04 BP, HR, EF%: Reviewed (HR has been elevated and BP has been elevated to normal so far this admission) - Qtc Review QTc: Reviewed (QTc 427 on admission) - IV to PO Switch IV Medications: Reviewed - Home Meds Home Med List reviewed: Reviewed Relevent Home Meds Not ordered & why?: celecoxib (has ketorolac ordered), lisinopril - Current meds Current Medication Order Review: Reviewed - Comments Comments/Follow Ups: Watch HR, BP, BG, labs and for med changes. Antibiotic Review - Pharmacy Antibiotic Review Pharmacy Antibiotic Activity: Reviewed, no change (Ciprofloxacin and metronidazole ordered for diverticula of small intestant per H&P.)
[2022-07-03] MEDS: Lisinopril 20 MG TAB PO (12:31)
[2022-07-03] MEDS: Enoxaparin 40 MG/0.4 ML SYR SC (12:31)
[2022-07-03 12:58] LABS: HCT 38.4 % (40.0-50.0); HGB 13.5 g/dL (13.5-17.5); MCH 32.4 pg (27.0-33.0); MCHC 35.2 % (32.0-36.0); MCV 92 fL (80-95); MPV 9.7 fL (8.0-11.0); Platelet Count 127 10^3/uL (130-400); RBC 4.17 10^6/uL (4.36-5.78); RDW 13.7 % (11.8-14.1); RDW-SD 45.1 fL; WBC 12.52 10^3/uL (4.4-10.8)
[2022-07-03] MEDS: Ketorolac 30 MG/ML VIAL IVP (20:18)
[2022-07-03 21:28] VITALS: TEMP 38.5
[2022-07-03] MEDS: Acetaminophen 500 MG TAB 1000 MG PO (21:28)
[2022-07-03 22:00] VITALS: BP 130/82; PULSE 101; RESP 18; TEMP 38; O2SAT 95
[2022-07-04] VITALS (8 sets, daily range): BP systolic 111–135; BP diastolic 74–90; PULSE 81–93; RESP 18; TEMP 36.7–38.4; O2SAT 95–98
[2022-07-04] MEDS: HYDROmorphone 2 MG/ML SYR 0.5 MG IVP ×2 (00:08→11:16)
[2022-07-04] MEDS: Normal Saline 1,000 ML 150 ML IV ×3 (01:47→20:12)
[2022-07-04] MEDS: metroNIDAZOLE 500 MG/100 ML BAG 100 MG IVPB ×4 (01:47→19:05)
[2022-07-04 07:00] LABS: Abs Immature Grans 0.07 10^3/uL (0.0-0.06); Absolute Basophil Count 0.04 10^3/uL (0.0-0.2); Absolute Eosinophil Count 0.11 10^3/uL (0.0-0.7); Absolute Lymphocyte Count 1.11 10^3/uL (1.2-3.4); Absolute Monocyte Count 0.86 10^3/uL (0.1-0.8); Absolute Neutrophil Count 7.82 10^3/uL (1.2-6.7); Basophils % 0.4; Eosinophils % 1.1; HCT 37.3 % (40.0-50.0); Immature Grans % 0.7; Lymphocytes % 11.1; MCH 32.5 pg (27.0-33.0); MCHC 34.9 % (32.0-36.0); MCV 93 fL (80-95); MPV 9.5 fL (8.0-11.0); Monocytes % 8.6; Neutrophils % 78.1; Platelet Count 113 10^3/uL (130-400); RDW 13.8 % (11.8-14.1); RDW-SD 46.5 fL; WBC 10.01 10^3/uL (4.4-10.8)
[2022-07-04 07:12] LABS: Anion Gap 8.1 mmol/L (3-11); BUN 15 mg/dL (7-18); CO2 25.9 mmol/L (21.0-32.0); CREATININE 1.1 mg/dL (0.70-1.30); Calcium 8.2 mg/dL (8.5-10.1); Chloride 107 mmol/L (98-107); Estimated GFR 82.29 (mL/min/1.73m2); Glucose 120 mg/dL (74-106); Magnesium 1.9 mg/dL (1.8-2.4); Potassium 3.8 mmol/L (3.5-5.1); Sodium 141 mmol/L (136-145)
[2022-07-04] MEDS: Lisinopril 20 MG TAB PO (08:15)
[2022-07-04] MEDS: Enoxaparin 40 MG/0.4 ML SYR SC (08:16)
--- NOTE | 2022-07-04 08:36 | PDOC.CMPRO ---
- If Service Date Differs Date of service: 07/04/22 Time of Service: 08:36 Care Management Progress Note S/O:Vivek was lying in bed when CM met with him. He informed CM that his pain is improving and he has been tolerating a clear liquid diet. Last night Vivek again had fever but his WBC has returned to normal. He will continue with the clear liquid diet and IV antibiotics for today. Vivek did admit he is a bit bored. CM offered puzzle books and other items from the activity cart but Vivek declined, sandy noting he is not yet THAT bored. A:Vivek is a 47 year old man admitted on 07/03/22 with diverticulitis P:Anticipate Vivek will discharge home with no new services when medically cleared by provider. He will follow up with his surgeon , PCP and plan of care and transport with family. CM will follow and assess for discharge concerns.
[2022-07-04] MEDS: CIPROFLOXACIN 400 MG/200 ML BAG 200 MG IVPB ×2 (10:15→21:28)
[2022-07-04] MEDS: Acetaminophen 500 MG TAB 1000 MG PO (10:20)
--- NOTE | 2022-07-04 10:32 | W.PM.PROGNOT ---
Date of Service Date of service: 07/04/22 Time of Service: 08:00 Assessment and Plan Assessment and plan (1) Diverticula of small intestine: Status: Acute Assessment and plan: WBC is normal today. Fevers over night, will continue to monitor. Abdominal discomfort is subjectively improved per the patient. Continue clear liquid diet Continue antibiotics Agree with above. Patient seen and examined at 16:30 He states his pain is better. ABDO: soft. TTP in the LLQ. Umbilical hernia- I was able to partially reduce it. Has fat in it A// 47 year old with small bowel diverticultis. Leukocytosis has resolved Umbilical hernia with some fat incarcerated in it. I was able to reduce it partially Still having fevers P// Continue antibiotics Advance diet to full liquids tomorrow morning Home once he is fever free for 24 hours Add incentive spirometer Will need his hernia fixed once he is over the diverticulitis (2) Umbilical hernia: Status: Acute Subjective Subjective Interval history since last seen: Mr. Fritz reports that he is feeling slightly better today. He has been tolerating clear liquids. He did not denies having any nausea or vomiting. He did have fevers overnight. Exam Const General: cooperative, healthy appearing and comfortable Orientation: alert and oriented x3 Resp Effort & Inspection: normal respiratory effort, audible wheezes and cough GI Inspection: normal to inspection Palpation: soft, guarding and tender Auscultation: normal bowel sounds Other: Umbilical hernia noted, soft mildly tender with palpation. Unable to reduce. Objective Last Vital Signs Temp 38.1 C H 07/04/22 10:20 Pulse 89 07/04/22 10:18 Resp 18 07/04/22 10:18 BP 111/75 07/04/22 10:18 Pulse Ox 97 07/04/22 10:18 Laboratory Results - last 24 hr 07/03/22 07/04/22 07/04/22 12:45 06:45 06:45 WBC 12.52 H 10.01 RBC 4.17 L 4.00 L Hgb 13.5 13.0 L Hct 38.4 L 37.3 L MCV 92 93 MCH 32.4 32.5 MCHC 35.2 34.9 RDW 13.7 13.8 Plt Count 127 L 113 L MPV 9.7 9.5 Immature Gran % 0.7 Neutrophils % 78.1 Lymphocytes % 11.1 Monocytes % 8.6 Eosinophils % 1.1 Basophils % 0.4 Nucleated RBC % 0.0 Absolute Neutrophils 7.82 H Absolute Lymphocytes 1.11 L Absolute Monocytes 0.86 H Absolute Eosinophils 0.11 Absolute Basophils 0.04 Sodium 141 Potassium 3.8 Chloride 107 Carbon Dioxide 25.9 Anion Gap 8.1 BUN 15 Creatinine 1.1 Est GFR (CKD-EPI 2020) 82.29 Glucose 120 H Calcium 8.2 L Magnesium 1.9 PAWSS Have you Been Recently Intoxicated or Drunk Within the Last 30 days?: No Have you Ever Experienced Previous Episodes of Alcohol Withdrawal?: No Have you ever Experienced Withdrawal Seizures?: No Have you ever Experienced Delirium Tremens(DT)s?: No Have you ever undergone Alcohol Rehabilitation Treatment (i.e, inpt ot outpatient treatment programs)?: No Have you ever Experienced Blackouts?: No Have you ever Combined Alcohol with other Downers within the last 90 days?: No Have you ever Combined Alcohol with any other Substance of Abuse during the last 90 days?: No Positive Blood Alcohol level on Presentation? [PCS.BAL]: No Evidence of Increased Autonomic Activity (i.e. HR>120, tremor, sweating, agitation, nausea)?: No Result: 0 Time Spent with Patient Time Spent with Patient: <25 minutes Time was spent: preparing to see the patient(eg.review tests), obtaining and/or reviewing separately otained hiistory, ordering medications,tests, procedures, indepentently interpreting results and counseling the patient
[2022-07-04] MEDS: Normal Saline Flush 10 ML SYR IVP ×3 (11:50→19:12)
--- NOTE | 2022-07-04 15:37 | CHAPLAIN ---
Vivek was in the chair when I visited. He was pleasant and said he's feeling better. He's in touch with family. His parents have visited and he expects his to be in when school gets out. I explained my role and offered support.
[2022-07-04] MEDS: Ketorolac 30 MG/ML VIAL IVP (19:11)
[2022-07-04] MEDS: Ondansetron 4 MG/2 ML VIAL IVP (19:12)
[2022-07-05] MEDS: metroNIDAZOLE 500 MG/100 ML BAG 100 MG IVPB ×2 (01:15→07:28)
[2022-07-05 01:25] VITALS: BP 128/77; PULSE 80; RESP 18; TEMP 36.9; O2SAT 95
[2022-07-05] MEDS: Normal Saline 1,000 ML 100 ML IV (04:25)
[2022-07-05 07:19] VITALS: BP 148/83; PULSE 73; RESP 17; TEMP 37; O2SAT 96
[2022-07-05] MEDS: Lisinopril 20 MG TAB PO (07:28)
[2022-07-05] MEDS: Enoxaparin 40 MG/0.4 ML SYR SC (07:28)
[2022-07-05] MEDS: CIPROFLOXACIN 400 MG/200 ML BAG 200 MG IVPB (10:03)
--- NOTE | 2022-07-05 11:57 | W.PM.PROGNOT ---
Date of Service Date of service: 07/05/22 Time of Service: 07:00 Assessment and Plan Assessment and plan (1) Diverticula of small intestine: Status: Acute Assessment and plan: WBC is normal today. No fevers overnight. Abdominal discomfort is subjectively improved per the patient. Tolerating full liquids Continue antibiotics Encouraged him to keep increase activity out of bed, sitting in the chair and ambulation. Possible discharge home later today. I saw and examined Vivek, and I agree with Radha's notes. He looks much much better today. He has been tolerating a diet with minimal abdominal discomfort. Has been afebrile. Leukocytosis has resolved. We will continue an outpatient course of enteral antibiotics, and see him in the office in follow-up. We will work to discharge him this afternoon. (2) Umbilical hernia: Status: Acute Subjective Subjective Interval history since last seen: Arrived with Mr. Fritz lying in bed. He states that he has been having bowel movements. His abdominal pain has improved compared to yesterday. He states he is tolerating the Exam Const General: cooperative, healthy appearing and comfortable Orientation: alert and oriented x3 Resp Effort & Inspection: normal respiratory effort, no audible wheezes and no cough GI Other: Abdomen is soft and slightly tender with palpation around the umbilical hernia. No erythema, swelling or induration around the umbilicus. Normal active bowel sounds. Objective Last Vital Signs Temp 37.0 C 07/05/22 07:19 Pulse 73 07/05/22 07:19 Resp 17 07/05/22 07:19 BP 148/83 H 07/05/22 07:19 Pulse Ox 96 07/05/22 07:19 PAWSS Have you Been Recently Intoxicated or Drunk Within the Last 30 days?: No Have you Ever Experienced Previous Episodes of Alcohol Withdrawal?: No Have you ever Experienced Withdrawal Seizures?: No Have you ever Experienced Delirium Tremens(DT)s?: No Have you ever undergone Alcohol Rehabilitation Treatment (i.e, inpt ot outpatient treatment programs)?: No Have you ever Experienced Blackouts?: No Have you ever Combined Alcohol with other Downers within the last 90 days?: No Have you ever Combined Alcohol with any other Substance of Abuse during the last 90 days?: No Positive Blood Alcohol level on Presentation? [PCS.BAL]: No Evidence of Increased Autonomic Activity (i.e. HR>120, tremor, sweating, agitation, nausea)?: No Result: 0 Time Spent with Patient Time Spent with Patient: <25 minutes Time was spent: preparing to see the patient(eg.review tests) and counseling the patient
--- NOTE | 2022-07-05 12:58 | DSE_ITS ---
Date of service: 07/05/22 Time of Service: 12:58 DS: Diagnosis Discharge Diagnosis (1) Diverticula of small intestine: Status: Acute Asessment and Plan: Clinically improving with the addition of antibiotics Follow-up in the office 1 to 2 weeks (2) Umbilical hernia: Status: Acute Asessment and Plan: We will follow-up with outpatient management, and elective hernia repair if he desires Discharge Plan Disposition Patient Disposition: Home Condition: Good Discharge Details Reason For Visit: Acute Small Bowel Diverticulitis Admit Date/Time: 07/03/22 01:27 Admit Provider: Gerardo Kyle Attending Provider: Gerardo Kyle [facility]: 47 y/o male presented to the ER with complaints of abdominal pain. Imaging was consistent with small bowel diverticulitis. He had an elevated white count. He was admitted for bowel rest and IV antibiotics. Over the course of 3 days his white blood count resolved he was no longer having fevers and he was slowly progressed to a soft diet. His abdominal pain improved significantly. Discharge home on p.o. antibiotics. Patient will follow-up in the surgical office in 2 weeks Home Meds and New Rx's Prescriptions: New metronidazole 500 mg tablet 500 mg PO Q12H 10 Days Qty: 20 0RF ciprofloxacin HCl 500 mg tablet 500 mg PO BID 10 Days Qty: 20 0RF Continued celecoxib 200 mg capsule 200 mg PO BID PRN (Reason: pain) Qty: 60 3RF lisinopril 10 mg tablet 20 mg PO DAILY Qty: 60 0RF acetaminophen [Tylenol Extra Strength] 500 mg tablet 1,000 mg PO Q8H PRN PRNQty: 60 0RF No Action metronidazole 500 mg tablet 500 mg PO BID Qty: 20 0RF Rx Instructions: Take 1 tablet by mouth in the morning, and 1 tablet by mouth in the evening ciprofloxacin HCl 500 mg tablet 500 mg PO BID Qty: 20 0RF Rx Instructions: Take 1 tablet by mouth in the morning, and 1 tablet by mouth in the evening Discharge Instructions Instructions: Diverticulitis (DC) Additional Instructions: Vivek, you were admitted to the hospital after the cute onset of abdominal pain. The CAT scan showed that you had diverticulitis of your small intestine. Diverticula are small weak spots in the wall of the intestine that protrude outwards. These can become infected and inflamed. As we talked about in the hospital, they are relatively uncommon compared to large intestine diverticulosis, but the management principles are fairly similar. I have provided a prescription for ciprofloxacin as well as metronidazole. These prescriptions were sent to the [facility] in [facility]. These are antibiotics that were used to treat you while you are in the hospital. Please complete the entire course of antibiotics. Stand Alone Forms: Nursing Discharge Form Referrals: Gerardo Kyle MD [ [facility]FF PHYSICIAN] - 07/19/22 2:00 pm (2 week follow up) Activity:: Activity as Tolerated Equipment/Supplies:: No Equipment Needed Diet:: Normal Diet Discharge Orders Discharge Orders: Discharge Order (Routine); Ordered 07/05/22 Ordered By: Juanita Lester Discharge Data Discharge Date/Time-TO BE ENTERED AT DEPARTURE: 07/05/22 13:52 DS: Summary Time Spent with Patient providing and/or coordinating discharge services: Less than 30 minutes Status at Discharge Functional status at discharge: independent ambulation Overall status at discharge: patient is back to baseline Mental Status: mental status grossly normal Speech and Movement: speech and movement normal Mood: congruent mood Affect: normal affect Exam Const General: cooperative, healthy appearing and comfortable Orientation: alert and oriented x3 Resp Effort & Inspection: normal respiratory effort, no audible wheezes and no cough GI Inspection: normal to inspection Palpation: soft, no guarding and tender (around umbilical hernia) Psych Mental Status: mental status grossly normal Speech and Movement: speech and movement normal Mood: congruent mood Affect: normal affect DS: Data Vitals/I&O Vitals and I&O: Vital Signs Temperature 37.0 C 07/05/22 07:19 Temperature Source Tympanic 07/05/22 07:19 Pulse 73 07/05/22 07:19 Pulse Rhythm Regular 07/05/22 00:09 Respiratory Rate 17 07/05/22 07:19 Respiratory Effort Normal, Non-Labored 07/05/22 08:00 Respiratory Depth Normal 07/05/22 08:00 Respiratory Pattern Normal 07/05/22 08:00 Blood Pressure 148/83 H 07/05/22 07:19 Pulse Oximetry 96 07/05/22 07:19 Oxygen Delivery Method Room Air 07/05/22 07:19 Oxygen Flow Rate 0 07/05/22 07:19 Pain Level 0 07/05/22 07:19 Comment RN informed of temp 07/04/22 18:24 Intake & Output 07/04/22 07/05/22 07/05/22 18:59 06:59 18:59 Intake Total 3100.0 / 5439.167 2339.167 / 5439.167 670 / 670 Balance 3100.0 / 5439.167 2339.167 / 5439.167 670 / 670 Intake: IV 1400.0 / 3739.167 2339.167 / 3739.167 310 / 310 Oral 1700 / 1700 360 / 360 Other: Urine Appearance Clear Comment Per pt. report, void x1 in the toilet. 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 Essential hypertension (Acute 03/03/13) Medical History Bilateral knee pain Chronic diarrhea 05/21/15 COLONOSCOPY; DR. ITALO FIGUEROA-04 February 2021-sore throat, stuffy nose Diverticulosis HTN (hypertension) Hyperlipidemia Hyperuricemia Lip lesion Low back pain Obesity Obstructive sleep apnea syndrome 12/25 SLEEP STUDY @ [facility]: SEVERE OBSTRUCTIVE SLEEP APNEA; CPAP ADVISED. Prediabetes Rectal bleeding Surgical History Arthroplasty of knee Pt had a scope of knee previous to his coming in today for a total knee. 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 stated Cleaned out around the nerves laminectomy/discectomy Family History Mother No problems noted. Father No problems noted. Brother No problems noted. Grandfather No problems noted. Grandfather No problems noted. Grandmother No problems noted. Grandmother Diabetes Brother No problems noted. Brother No problems noted. Son No problems noted. Social History Smoking/Tobacco Use Status: Former Tobacco Use Tobacco: How many years used: 10 Smokeless tobacco user: chewing tobacco Smoking risk assessment performed?: Yes Alcohol Intake: current Alcohol Intake frequency: a few times a week Alcohol type: beer and hard liquor Drug use: Never Substance use type: does not use Details: alcohol on sunday Household members: other Details: 3 current occupation: TEACHER Pets and animals: Yes Pets and animals: dog(s) Current gender identity: male Frequency: daily Sushila/Hoahaoism: Sikhism Do you feel safe at home: Yes Do you feel safe in your relationship?: Yes Time Spent with Patient Time Spent with Patient: 45-69 minutes Time was spent: preparing to see the patient(eg.review tests), ordering medications,tests, procedures, counseling the patient and care coordination
--- NOTE | 2022-07-05 13:29 | PDOC.CMDIS ---
- If Service Date Differs Date of service: 07/05/22 Time of Service: 13:29 LACE Index Scoring Tool - Questions: Length of Stay (in days): 2 Acuity (Admit via E.D.?): Yes E.D. Visits: 1 - Answers: Total Score: 6 Risk of Readmission: Low Risk Care Management Discharge Reason for Hospitalization: Diverticulitis Discharge Plan: Vivek will discharge home with no new services when medically cleared by provider. He will follow up with his surgeon, PCP and plan of care as prescribed and transport via private vehicle. Patient/Family Education Needs: Review of discharge instructions, Ask Me Three.
--- NOTE | 2022-07-05 15:07 | NUR.NOTE ---
Patient was DC @ 1330. All discharge paperwork reviewed with patient. All questions & or concerns were addressed. IV to RFA was removed w/o complications. Patient was walked down stairs to be p/u by . Nursing Note:
== END 2022-07-05 13:52 | disposition home or self-care (01) ==
LOC: ER 07-03 02:06 → MS 07-03 02:09
PROVIDERS: Physician Assistant; Surgery; Admitting Provider Surgery; Emergency Provider Physician Assistant; PCP Nurse Practitioner Family; Visit Provider Surgery
DX: K57.12 Diverticulitis of small intestine without perforation or abscess without bleeding (principal); R50.9 Fever, unspecified; Z98.84 Bariatric surgery status; I10 Essential (primary) hypertension; E78.5 Hyperlipidemia, unspecified; M54.50 Low back pain, unspecified; E66.9 Obesity, unspecified; Z68.41 Body mass index [BMI] 40.0-44.9, adult; G47.33 Obstructive sleep apnea (adult) (pediatric); K42.9 Umbilical hernia without obstruction or gangrene
CPT/HCPCS: 36410; 36415; 80048; 80053; 83690; 85027; 87635; 93005; 96361; 96365; 96366; 96368; 96372; 96374; 96375; 99285; J1650; 74177; 81003; 81015; 83735; 84484; 85025; 93010; G0378; J0131; J0744; J1170; J1885; J2405; J3490; Q9967

== ENCOUNTER 2022-07-24 13:31 | Inpatient (IN) | payer BC, SELFPAY ==
[2022-07-24 13:38] VITALS: BP 156/79; PULSE 115; RESP 20; TEMP 37.5; O2SAT 99
--- NOTE | 2022-07-24 14:14 | W.ED.GENAD ---
Discharge Plan Disposition Patient Disposition: Admit to [facility] Discharge Details Clinical Impression: Diverticulitis of small intestine with perforation, Umbilical hernia Admit Date/Time: 07/24/22 17:14 Admit Provider: Eloisa Sierra Attending Provider: Eloisa Sierra Primary Care Provider: Aziza Davis ED Provider: Cortney Kurtz Discharge Data Discharge Date/Time-TO BE ENTERED AT DEPARTURE: 07/24/22 17:49 Medical Decision Making <GINI Cline - Last Filed: 07/28/22 22:25> Patient is a pleasant 47-year-old male presented with chief complaint of abdominal pain. He was recently admitted for the same and was diagnosed with small bowel diverticulitis. Also has a known umbilical hernia. Both of these are followed by Dr. Kyle whom he saw last Sunday. At the time he saw Dr. Kyle, he reports that he was feeling quite well. However, at around 230 yesterday morning he awoke with recurrent abdominal pain. His primary care put him back on oral antibiotics. She is even trying to stay hydrated. Endorses some nausea but no vomiting. States yesterday did have some diarrhea, all of which was nonbloody, this is subsided today and has not had any bowel movements. States that pain is the same quality and location his previous small bowel diverticulitis. States that he has had some fevers and chills. Tmax was over 100 ?F at home per patient. On exam, patient appears uncomfortable. He is tachycardic with a heart rate of 115. Lungs are clear. Abdomen does not have any peritoneal findings. However, I am concerned that the skin around his hernia is erythematous, tender and warm. He does have a small break in the skin within this boundary so it may potentially be from cellulitis not just purely from the umbilical hernia. However, incarceration is certainly a concern. He is also tender in the left lower and away from the erythematous area periumbilically making me concerned for recurrent vault small bowel diverticulitis. Plan to repeat imaging. Will give analgesics and hydration. He declines any antiemetics. He is already taking his antibiotics p.o. thus far today. Will consult with surgery pending results. <GINI Thompson - Last Filed: 07/24/22 21:08> Patient is a pleasant 47-year-old male presented with chief complaint of abdominal pain. He was recently admitted for the same and was diagnosed with small bowel diverticulitis. Also has a known umbilical hernia. Both of these are followed by Dr. Kyle whom he saw last Sunday. At the time he saw Dr. Kyle, he reports that he was feeling quite well. However, at around 230 yesterday morning he awoke with recurrent abdominal pain. His primary care put him back on oral antibiotics. She is even trying to stay hydrated. Endorses some nausea but no vomiting. States yesterday did have some diarrhea, all of which was nonbloody, this is subsided today and has not had any bowel movements. States that pain is the same quality and location his previous small bowel diverticulitis. States that he has had some fevers and chills. Tmax was over 100 ?F at home per patient. On exam, patient appears uncomfortable. He is tachycardic with a heart rate of 115. Lungs are clear. Abdomen does not have any peritoneal findings. However, I am concerned that the skin around his hernia is erythematous, tender and warm. He does have a small break in the skin within this boundary so it may potentially be from cellulitis not just purely from the umbilical hernia. However, incarceration is certainly a concern. He is also tender in the left lower and away from the erythematous area periumbilically making me concerned for recurrent vault small bowel diverticulitis. Plan to repeat imaging. Will give analgesics and hydration. He declines any antiemetics. He is already taking his antibiotics p.o. thus far today. Will consult with surgery pending results. 1600 care accepted and transition from BP pending CT abdomen pelvis, CT abdomen and pelvis shows diverticulitis with evidence of perforation per Dr. Solis interpretation and review, case discussed with Dr. Sierra, will admit patient to her service We will defer antibiotic treatment and additional orders to her care and admission HPI <GINI Cline - Last Filed: 07/28/22 22:25> General Date/Time Provider Initiated Documentation: 07/24/22 14:14. Limitations to Documentation: no limitations. Information obtained by: patient, family, RN notes reviewed and old records reviewed. History of Present Illness 47 year old M presents to the emergency department with the chief complaint of Abdominal pain, described as moderate and similar to prior episodes, Quality is described as aching, Patient reports no radiation. Patient started experiencing this day(s) and it has been constant. No relieving factors improve symptom(s), Movement worsens symptoms . Patient notes fever/chills, loss of appetite, malaise and nausea/vomiting; denies chest pain, cough, headaches, rash and shortness of breath. Patient did receive the following treatments prior to arrival, none Related Data Home Medications Medication Instructions Recorded Confirmed acetaminophen 500 mg tablet 1,000 mg PO Q8H PRN PRN #60 tabs 05/14/20 07/24/22 (Tylenol Extra Strength) lisinopril 10 mg tablet 20 mg PO DAILY #180 tabs 07/11/22 07/24/22 amoxicillin 875 mg-potassium 1 tab PO BID #9 tabs 07/28/22 clavulanate 125 mg tablet tramadol 50 mg tablet 50 mg PO Q6H PRN #14 tabs 07/28/22 Previous Rx's Medication Instructions Recorded acetaminophen 500 mg tablet 1,000 mg PO Q8H PRN PRN #60 tabs 05/14/20 (Tylenol Extra Strength) lisinopril 10 mg tablet 20 mg PO DAILY #180 tabs 07/11/22 amoxicillin 875 mg-potassium 1 tab PO BID #9 tabs 07/28/22 clavulanate 125 mg tablet tramadol 50 mg tablet 50 mg PO Q6H PRN #14 tabs 07/28/22 Allergies Allergy/AdvReac Type Severity Reaction Status Date / Time No Known Drug Allergies Allergy Unverified 07/19/22 14:08 General Stated Complaint: Abd Prob DESIRE: 3 Review of Systems <GINI Cline - Last Filed: 07/28/22 22:25> Constitutional Constitutional: Reports as per HPI and Denies headache(s) ENT Ears, Nose, Mouth, and Throat: Denies headache(s) Cardiovascular Cardiovascular: Reports as per HPI, Denies chest pain and Denies dyspnea Respiratory Respiratory: Reports as per HPI, Denies cough and Denies dyspnea Gastrointestinal Gastrointestinal: Reports as per HPI Genitourinary Genitourinary: Denies system reviewed and no additional complaints, except as documented (patient denies any change in urinary habits) Musculoskeletal Musculoskeletal: Reports as per HPI and Denies back pain Integumentary/Breasts Skin/Breast: Reports as per HPI and Denies rash Neurologic Neurologic: Reports as per HPI and Denies headache(s) PFSH <GINI Cline - Last Filed: 07/28/22 22:25> All Active Problems Diverticulitis of small intestine with perforation (Acute) Umbilical hernia (Acute) Diverticula of small intestine (Acute) Arthrofibrosis of total knee arthroplasty (Acute) RIGHT S/P manipulation under anesthesia: 05/14/2020 S/P arthroscopic synovectomy: 04/27/2021 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 07/25/22 update: Mac 3 grade 1 with head lift, masked with OPA. Essential hypertension (Acute 03/03/13) Medical History Bilateral knee pain Chronic diarrhea 05/21/15 COLONOSCOPY; DR. ITALO FIGUEROA-04 February 2021-sore throat, stuffy nose Diverticulosis HTN (hypertension) Hyperlipidemia Hyperuricemia Lip lesion Low back pain Obesity Obstructive sleep apnea syndrome 12/25 SLEEP STUDY @ [facility]: SEVERE OBSTRUCTIVE SLEEP APNEA; CPAP ADVISED. Prediabetes Rectal bleeding Surgical History Arthroplasty of knee Pt had a scope of knee previous to his coming in today for a total knee. 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 stated Cleaned out around the nerves laminectomy/discectomy Family History Mother No problems noted. Father No problems noted. Brother No problems noted. Grandfather No problems noted. Grandfather No problems noted. Grandmother No problems noted. Grandmother Diabetes Brother No problems noted. Brother No problems noted. Son No problems noted. Social History Smoking/Tobacco Use Status: Former Tobacco Use Tobacco: How many years used: 10 Smokeless tobacco user: chewing tobacco Smoking risk assessment performed?: Yes Alcohol Intake: current Alcohol Intake frequency: a few times a week Alcohol type: beer and hard liquor Drug use: Never Substance use type: does not use Details: alcohol on sunday night Household members: other Details: 3 current occupation: TEACHER Pets and animals: Yes Pets and animals: dog(s) Current gender identity: male Frequency: daily Sushila/Presybeterian: Moravian Do you feel safe at home: Yes Do you feel safe in your relationship?: Yes Exam <GINI Cline - Last Filed: 07/28/22 22:25> Const General: cooperative, healthy appearing, uncomfortable, no acute distress and well developed Nutritional Appearance: well nourished and overweight Orientation: alert and awake HENMT Head: normal to inspection Mouth: moist mucous membranes Resp Effort & Inspection: normal respiratory effort, able to speak in complete sentences and no respiratory distress Auscultation: clear to auscultation bilaterally, no rales, no rhonchi and no wheezes Cardio Rate: regular rate Rhythm: regular rhythm Heart Sounds: S1 normal and S2 normal GI Inspection: distended and other (erythematous area with well defined boarders around umbilicus) Palpation: soft, no hepatosplenomegaly, no guarding, hernia umbilical, no pulsatile masses, not rigid and tender periumbilically and with rebound tenderness; obturator sign negative Percussion: normal to percussion Auscultation: hypoactive bowel sounds Back/Spine/Pelvis Back: no CVA tenderness Skin General skin exam: erythema Neuro General: patient alert and patient awake Cognition: normal cognition Speech: speech normal Gait: normal gait Psych Appearance: grossly normal and well kempt Mental Status: mental status grossly normal Speech and Movement: speech and movement normal Course <GINI Cline - Last Filed: 07/28/22 22:25> Vital Signs Vital signs: Vital Signs Temperature 37.5 C 07/24/22 13:38 Pulse 115 H 07/24/22 13:38 Respiratory Rate 20 07/24/22 13:38 Blood Pressure 156/79 H 07/24/22 13:38 Pulse Oximetry 99 07/24/22 13:38 Temperature 37.5 C 07/24/22 13:38 Temperature Source Oral 07/24/22 13:38 Pulse 115 H 07/24/22 13:38 Respiratory Rate 20 07/24/22 13:38 Respiratory Effort Normal, Non-Labored 07/24/22 13:44 Blood Pressure 156/79 H 07/24/22 13:38 Blood Pressure Position Sitting 07/24/22 13:38 Pulse Oximetry 99 07/24/22 13:38 Oxygen Delivery Method Room Air 07/24/22 13:38 Oxygen Flow Rate 0 07/24/22 13:38 Pain Level 6 07/24/22 13:38 Sign Out <GINI Cline - Last Filed: 07/28/22 22:25> Sign Out Data: Sign Out Comment: Care transition to Cortney Kurtz with imaging pending. Patient here with recurrent abdominal pain similar to when he has had a small bowel diverticulitis in the past. Also concerned for potential incarcerated umbilical hernia versus a overlying cellulitis. Last updated by Henna Loyd PA at 07/24/22 15:37
--- NOTE | 2022-07-24 14:15 | DI.CT_ITS ---
Exam(s) CT ABDOMEN PELVIS W EXAM: CT ABDOMEN PELVIS W CLINICAL HISTORY: abdominal pain, recent sm. bowel divertic. TECHNIQUE: Imaging Protocol: Axial computed tomography images with coronal and sagittal reformatted images were created and reviewed CONTRAST MATERIAL: Intravenous: Omnipaque 350 Contrast volume:100 ml Oral: no COMPARISON: CT CT ABDOMEN PELVIS W from 07/02/2022 FINDINGS: ABDOMEN: Lung Bases: Normal where visualized. Liver: [id number] hepatic steatosis. No measurable mass. Gallbladder and biliary tract: Large gallstone. No gallbladder wall thickening or biliary dilatation . Pancreas: Normal density, no abnormal calcifications or inflammatory process. Spleen: Normal. Kidneys: Normal size, contour and axis. No radiodense stones or obstructive uropathy. No suspicious m asses seen. Adrenal glands: Completely fatty left adrenal mass, consistent with myelolipoma, unchanged. Abdominal Aorta: Abdominal portion non-dilated. Soft tissues: Fatty containing umbilical hernia, unchanged in size but now contains small amount of f luid and inflammatory stranding due to nearby bowel inflammation. PELVIS: Bladder: Diffuse mild wall thickening versus under distension.. No calculi.No focal mass. Bowel: No obstruction. Multifocal areas of small bowel diverticula. Colonic diverticula also prese nt. Marked interval increase in the amount of inflammation and wall thickening involving loops of mc wel in the left mid to lower abdomen, similar location to prior. No drainable abscess. Multiple air bubbles in the fat consistent with perforation. Appendix normal. Peritoneal cavity: No ascites or collection. Bones: Degenerative changes in the spine. Reproductive organs: Within normal limits. Lymph nodes: Unremarkable. Impression: Severe diverticulitis and perforation involving small bowel in the left mid to lower quadrant, with s ignificant worsening from prior. No drainable abscess. Inflammation extends to involve the fatty co ntaining umbilical hernia. Findings discussed with Henna Loyd emergency department provider RADIATION DOSE DELIVERED: 1,784.27mGy.cm Total DLP DATA REPOSITORY: All CT scans at this facility are submitted to the National Radiology Data Registry (NRDR) Dose Index Registry (DIR) with the [employer] ([employer]). RADIATION OPTIMIZATION: All CT scans at this facility use at least one of these dose optimization te chniques: automated exposure control; mA and/or kV adjustment per patient size (includes targeted exa ms where dose is matched to clinical indication); or iterative reconstruction.
[2022-07-24] MEDS: Lactated Ringers 1,000 ML 1000 ML IV (14:45)
[2022-07-24] MEDS: HYDROmorphone 2 MG/ML SYR 1 MG IVP ×2 (14:46→16:32)
[2022-07-24 14:50] LABS: Lactate 0.8 mmol/L (0.6-1.4)
[2022-07-24 14:51] LABS: Absolute Basophil Count 0.06 10^3/uL (0.0-0.2); Absolute Monocyte Count 1.23 10^3/uL (0.1-0.8); Absolute Neutrophil Count 12.61 10^3/uL (1.2-6.7); Basophils % 0.4; Eosinophils % 0.3; HCT 42.2 % (40.0-50.0); HGB 14.5 g/dL (13.5-17.5); Immature Grans % 0.7; Lymphocytes % 7.4; MCH 31.2 pg (27.0-33.0); MCHC 34.4 % (32.0-36.0); MCV 91 fL (80-95); Monocytes % 8.1; Neutrophils % 83.1; Platelet Count 191 10^3/uL (130-400); RBC 4.65 10^6/uL (4.36-5.78); RDW 13.2 % (11.8-14.1); RDW-SD 43.8 fL; WBC 15.17 10^3/uL (4.4-10.8)
[2022-07-24 15:03] LABS: Absolute Eosinophil Count 0.05 10^3/uL (0.0-0.7); Absolute Lymphocyte Count 1.12 10^3/uL (1.2-3.4)
[2022-07-24 15:12] LABS: ALT 31 U/L (16-63); AST 14 U/L (15-37); Albumin 3.3 g/dL (3.4-5.0); Alkaline Phosphatase 88 U/L (46-116); Anion Gap 9.2 mmol/L (3-11); BUN 11 mg/dL (7-18); Bilirubin, Total 1.8 mg/dL (0.2-1.0); CO2 24.8 mmol/L (21.0-32.0); CREATININE 1.1 mg/dL (0.70-1.30); Calcium 8.8 mg/dL (8.5-10.1); Chloride 103 mmol/L (98-107); Estimated GFR 82.29 (mL/min/1.73m2); Glucose 146 mg/dL (74-106); Potassium 3.5 mmol/L (3.5-5.1); Sodium 137 mmol/L (136-145)
[2022-07-24] MEDS: Omnipaque 350 MG/ML 100 ML BTL IJ (15:28)
[2022-07-24] MEDS: Normal Saline - Diluent 50 ML VIAL IJ (15:29)
[2022-07-24 16:01] LABS: Lipase 28 U/L (16-77)
[2022-07-24 16:04] LABS: Bilirubin Small (Negative); Blood Large (Negative); Clarity Cloudy (Clear); Glucose Negative (Negative); Ketones Trace mg/dL (Negative); Leukocyte Esterase Negative (Negative); Nitrite Negative (Negative); Specific Gravity 1.015 (1.005-1.025); Urobilinogen 0.2 mg/dL (Up to 0.2)
[2022-07-24 16:16] LABS: Bacteria Negative HPF (Negative); C & S Indicated? No; Casts Negative LPF (Negative); Crystals Negative HPF (Negative); Epithelial Cells Few HPF (Negative); Mucus Trace (Negative); RBC >50 HPF (0-2); WBC 0-2 HPF (0-5)
[2022-07-24 16:24] VITALS: TEMP 38
[2022-07-24] MEDS: Lactated Ringers 250 ML 150 ML IV (17:25)
--- NOTE | 2022-07-24 17:31 | W.PM.HP.N ---
Date of service: 07/24/22 Time of Service: 17:31 Assessment and Plan Assessment and plan (1) Diverticula of small intestine: Status: Acute Assessment and plan: Vivek is back with abdominal pain and fevers. He has a leukocytosis and his CT scan shows worsening inflammation around the diverticula in his small intestine. I discussed the findings with Vivek and his . I think at this point he needs to have the small bowel resected. He doesnt have an acute abdomen so we can wait until the daytime. Discussed admission, NPO, IV fluids and antibiotics. Discussed possible laparoscopic small bowel resection vs open small bowel resection. I would also fix his umbilical hernia primarily due to potential for infection if a mesh was placed. We discued risk of hernia recurrance as well as hernia development post surgery due to his body habitus. He is at increased risk of hernia, wound dehisence and skin infection. Will ask anesthesia to look at his record due to his Hx of being a difficult intubation. He has severe obstructive sleep apnea as well. (2) Umbilical hernia: Status: Acute (3) Difficult intubation: Status: Acute (4) Obstructive sleep apnea syndrome: History of Present Illness Consults Consult date: 07/24/22 Requesting physician: Cortney Kurtz Narrative: Vivek is back in the ER for worsening abdominal pain. He was just admitted mid June with small bowel diverticulitis. He was discharged and continued on po antibiotics. He tells me that he finished his antibiotics last sunday. He was seen in the office on 07/19 and was doing well and had no pain. On sunday morning he woke up with worsening abdominal pain in the exact same location. He called the cash applications manager Primary Care physician who restarted him on Cipro and Flagyl. He called our office today feeling worse and having more pain and fevers. I asked him to go to the ER so he could get another CT scan. The CT scan, which I reviewed, showed worsening inflammation with microperforation along the same loop of small bowel. The inflamation tracked along the mesentary to his umbilical hernia. He also has had fevers. Labs reveal increase in his WBC count to just over 15,000. Review of Systems Constitutional Constitutional: Reports fever(s), Denies headache(s) and Reports poor appetite Eyes Eyes: Reports system reviewed and no additional complaints, except as documented ENT Ears, Nose, Mouth, and Throat: Denies headache(s) Cardiovascular Cardiovascular: Denies chest pain, Denies chest pain at rest, Denies irregular heart rhythm, Denies palpitations, Denies dyspnea and Denies dyspnea on exertion Respiratory Respiratory: Denies cough, Denies dyspnea and Denies dyspnea on exertion Gastrointestinal Gastrointestinal: Reports as per HPI Genitourinary Genitourinary: Reports system reviewed and no additional complaints, except as documented Musculoskeletal Musculoskeletal: Reports system reviewed and no additional complaints, except as documented Integumentary/Breasts Skin/Breast: Reports system reviewed and no additional complaints, except as documented Neurologic Neurologic: Reports system reviewed and no additional complaints, except as documented and Denies headache(s) Psychiatric Psychiatric: Reports system reviewed and no additional complaints, except as documented Endocrine Endocrine: Reports system reviewed and no additional complaints, except as documented and Denies palpitations Hematologic/Lymphatic Hematologic/Lymphatic: Reports system reviewed and no additional complaints, except as documented Allergic/Immunologic Allergic/Immunologic: Reports system reviewed and no additional complaints, except as documented PFSH All Active Problems Umbilical hernia (Acute) Diverticula of small intestine (Acute) Arthrofibrosis of total knee arthroplasty (Acute) RIGHT S/P manipulation under anesthesia: 05/14/2020 S/P arthroscopic synovectomy: 04/27/2021 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 Essential hypertension (Acute 03/03/13) Medical History Bilateral knee pain Chronic diarrhea 05/21/15 COLONOSCOPY; DR. ITALO FIGUEROA-04 February 2021-sore throat, stuffy nose Diverticulosis HTN (hypertension) Hyperlipidemia Hyperuricemia Lip lesion Low back pain Obesity Obstructive sleep apnea syndrome 12/25 SLEEP STUDY @ [facility]: SEVERE OBSTRUCTIVE SLEEP APNEA; CPAP ADVISED. Prediabetes Rectal bleeding Surgical History Arthroplasty of knee Pt had a scope of knee previous to his coming in today for a total knee. 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 stated Cleaned out around the nerves laminectomy/discectomy Family History Mother No problems noted. Father No problems noted. Brother No problems noted. Grandfather No problems noted. Grandfather No problems noted. Grandmother No problems noted. Grandmother Diabetes Brother No problems noted. Brother No problems noted. Son No problems noted. Social History Smoking/Tobacco Use Status: Former Tobacco Use Tobacco: How many years used: 10 Smokeless tobacco user: chewing tobacco Smoking risk assessment performed?: Yes Alcohol Intake: current Alcohol Intake frequency: a few times a week Alcohol type: beer and hard liquor Drug use: Never Substance use type: does not use Details: alcohol on sunday night Household members: other Details: 3 current occupation: TEACHER Pets and animals: Yes Pets and animals: dog(s) Current gender identity: male Frequency: daily Sushila/Oriental Orthodox: Anabaptism Do you feel safe at home: Yes Do you feel safe in your relationship?: Yes Meds Allergies and Home Medications Allergies Allergy/AdvReac Type Severity Reaction Status Date / Time No Known Drug Allergies Allergy Unverified 07/19/22 14:08 Home Medications Medication Instructions Recorded Confirmed Type acetaminophen 500 mg tablet 1,000 mg PO Q8H PRN PRN #60 tabs 05/14/20 07/24/22 Rx (Tylenol Extra Strength) lisinopril 10 mg tablet 20 mg PO DAILY #180 tabs 07/11/22 07/24/22 Rx Exam Const General: cooperative, no acute distress and ill appearing Nutritional Appearance: obese Orientation: alert and oriented x3 HENMT Head: normocephalic and atraumatic Eyes Pupils: PERRL Resp Effort & Inspection: normal respiratory effort Auscultation: clear to auscultation bilaterally Cardio Rate: regular rate and tachycardic Rhythm: regular rhythm Heart Sounds: no gallops, no murmurs and no rubs GI Inspection: visible herniation (umbilical hernia- reducible) Palpation: soft and tender periumbilically; with no rebound tenderness General: deferred Results Imaging Abdomen CT scan report/results: report reviewed and image reviewed CT scan - pelvis: report reviewed and image reviewed Labs 07/24/22 14:40 07/24/22 14:40 Labs: Laboratory Results - last 24 hr 07/24/22 07/24/22 07/24/22 14:40 14:40 14:40 WBC 15.17 H RBC 4.65 Hgb 14.5 Hct 42.2 MCV 91 MCH 31.2 MCHC 34.4 RDW 13.2 Plt Count 191 MPV 10.0 Immature Gran % 0.7 Neutrophils % 83.1 Lymphocytes % 7.4 Monocytes % 8.1 Eosinophils % 0.3 Basophils % 0.4 Nucleated RBC % 0.0 Absolute Neutrophils 12.61 H Absolute Lymphocytes 1.12 L Absolute Monocytes 1.23 H Absolute Eosinophils 0.05 Absolute Basophils 0.06 VBG Lactate 0.8 Sodium 137 Potassium 3.5 Chloride 103 Carbon Dioxide 24.8 Anion Gap 9.2 BUN 11 Creatinine 1.1 Est GFR (CKD-EPI 2020) 82.29 Glucose 146 H Calcium 8.8 Magnesium 2.0 Total Bilirubin 1.8 H AST 14 L ALT 31 Alkaline Phosphatase 88 Total Protein 8.0 Albumin 3.3 L Lipase Urine Color Urine Clarity Urine pH Ur Specific [place] Urine Protein Urine Ketones Urine Blood Urine Nitrite Urine Bilirubin Urine Urobilinogen Ur Leukocyte Esterase Urine RBC Urine WBC Ur Epithelial Cells Urine Crystals Urine Bacteria Urine Casts Urine Mucus Ur Culture Indicated? Urine Glucose 07/24/22 07/24/22 14:40 15:57 WBC RBC Hgb Hct MCV MCH MCHC RDW Plt Count MPV Immature Gran % Neutrophils % Lymphocytes % Monocytes % Eosinophils % Basophils % Nucleated RBC % Absolute Neutrophils Absolute Lymphocytes Absolute Monocytes Absolute Eosinophils Absolute Basophils VBG Lactate Sodium Potassium Chloride Carbon Dioxide Anion Gap BUN Creatinine Est GFR (CKD-EPI 2020) Glucose Calcium Magnesium Total Bilirubin AST ALT Alkaline Phosphatase Total Protein Albumin Lipase 28 Urine Color Yellow Urine Clarity Cloudy Urine pH 6.0 Ur Specific [place] 1.015 Urine Protein 100 H Urine Ketones Trace H Urine Blood Large H Urine Nitrite Negative Urine Bilirubin Small H Urine Urobilinogen 0.2 Ur Leukocyte Esterase Negative Urine RBC >50 H Urine WBC 0-2 Ur Epithelial Cells Few Urine Crystals Negative Urine Bacteria Negative Urine Casts Negative Urine Mucus Trace Ur Culture Indicated? No Urine Glucose Negative Last Vital Signs Temp 100.4 F H 07/24/22 16:24 Pulse 115 H 07/24/22 13:38 Resp 20 05/08/23 13:38 BP 156/79 H 07/24/22 13:38 Pulse Ox 99 07/24/22 13:38 Time Spent Time spent with Patient: 40-54 minutes Time was spent: preparing to see the patient(eg.review tests), obtaining and/or reviewing separately otained hiistory, ordering medications,tests, procedures, referring, communicating with other health director of home care hospice, indepentently interpreting results and counseling the patient
[2022-07-24 18:00] VITALS: BP 132/75; PULSE 101; RESP 18; TEMP 37.9; O2SAT 98
[2022-07-24 18:02] VITALS: BP 132/75; PULSE 101; RESP 18; TEMP 37.9; O2SAT 98
[2022-07-24] MEDS: Pantoprazole 40 MG VIAL IVP (18:34)
[2022-07-24] MEDS: Enoxaparin 40 MG/0.4 ML SYR SC (18:35)
[2022-07-24] MEDS: PIPERACILLIN/TAZO 3.375 GM in Normal Saline 50 ML IVPB ×2 (18:47→23:10)
[2022-07-24] MEDS: Ketorolac 30 MG/ML VIAL IVP (18:47)
[2022-07-24] MEDS: HYDROmorphone 2 MG/ML SYR IVP ×2 (19:30→22:58)
[2022-07-24 23:00] VITALS: BP 120/67; PULSE 100; RESP 16; TEMP 37.7; O2SAT 91
[2022-07-24] MEDS: diphenhydrAMINE 25 MG CAP 50 MG PO (23:10)
[2022-07-25] VITALS (19 sets, daily range): BP systolic 100–134; BP diastolic 57–80; PULSE 74–95; RESP 14–20; TEMP 36.4–37; O2SAT 94–98; BMI 41.3
[2022-07-25] MEDS: PIPERACILLIN/TAZO 3.375 GM in Normal Saline 50 ML IVPB ×4 (05:22→23:52)
[2022-07-25 07:06] LABS: Abs Immature Grans 0.06 10^3/uL (0.0-0.06); Absolute Eosinophil Count 0.07 10^3/uL (0.0-0.7); Absolute Lymphocyte Count 1.12 10^3/uL (1.2-3.4); Basophils % 0.4; Eosinophils % 0.6; HCT 38.8 % (40.0-50.0); HGB 13.1 g/dL (13.5-17.5); Immature Grans % 0.5; Lymphocytes % 9.9; MCH 31.6 pg (27.0-33.0); MCHC 33.8 % (32.0-36.0); MCV 94 fL (80-95); MPV 10.4 fL (8.0-11.0); Monocytes % 8.6; Platelet Count 179 10^3/uL (130-400); RBC 4.14 10^6/uL (4.36-5.78); RDW 13.4 % (11.8-14.1); RDW-SD 46.1 fL; WBC 11.34 10^3/uL (4.4-10.8)
[2022-07-25 07:12] LABS: Absolute Basophil Count 0.05 10^3/uL (0.0-0.2); Absolute Monocyte Count 0.98 10^3/uL (0.1-0.8); Absolute Neutrophil Count 9.07 10^3/uL (1.2-6.7)
[2022-07-25 07:20] LABS: Anion Gap 7.9 mmol/L (3-11); BUN 18 mg/dL (7-18); CO2 28.1 mmol/L (21.0-32.0); CREATININE 1.1 mg/dL (0.70-1.30); Calcium 8.5 mg/dL (8.5-10.1); Chloride 105 mmol/L (98-107); Estimated GFR 82.29 (mL/min/1.73m2); Glucose 95 mg/dL (74-106); Potassium 3.5 mmol/L (3.5-5.1); Sodium 141 mmol/L (136-145)
[2022-07-25] MEDS: Lisinopril 10 MG TAB 20 MG PO (07:59)
[2022-07-25] MEDS: Ketorolac 30 MG/ML VIAL IVP ×2 (08:00→19:35)
--- NOTE | 2022-07-25 08:27 | ANES.PREOP_ITS ---
General Info Date of Service Date Performed: 07/25/22 Height: 6 ft 4 in Weight: 154.221 kg Body Mass Index (BMI): 41.3 Surgical Procedure: Operation Date: 07/25/22 12:10 Proposed Procedure Side Surgeon p Laparoscopic small bowel resection, ?open Eloisa Sierra MD Meds Allergies and Home Medications Allergies Allergy/AdvReac Type Severity Reaction Status Date / Time No Known Drug Allergies Allergy Unverified 07/19/22 14:08 Home Medication Medication Instructions Recorded acetaminophen 500 mg tablet 1,000 mg PO Q8H PRN PRN #60 tabs 05/14/20 (Tylenol Extra Strength) lisinopril 10 mg tablet 20 mg PO DAILY #180 tabs 07/11/22 Current Visit Medications: Current Medications Generic Name Dose Route Start Last Admin Trade Name Freq PRN Reason Stop Dose Admin Diphenhydramine HCl 50 mg 07/25/22 06:26 Diphenhydramine 25 Mg Cap PO HS PRN PRN insomnia Enoxaparin Sodium 40 mg 07/24/22 18:00 07/24/22 18:35 Enoxaparin 40 Mg/0.4 Ml Syr SC 40 mg Q24H ONIEL Administration Hydromorphone HCl 1 - 2 mg 07/24/22 17:14 07/24/22 22:58 Hydromorphone 2 Mg/Ml Syr IVP 2 mg Q3H PRN PRN Administration Sodium Chloride 500 mls @ 0 mls/hr 07/24/22 17:14 Saline 500ml Bag IV PRN PRN As Directed Piperacillin Sod/Tazobactam 50 mls @ 100 mls/hr 07/24/22 18:00 07/25/22 05:22 Sod 3.375 gm/ Sodium Chloride IVPB 100 mls/hr Q6H ONIEL Administration Protocol Acetaminophen 1,000 mg in 100 mls @ 400 mls/hr 07/24/22 17:14 Ofirmev IVPB Q8H PRN PRN IV Miscellaneous Supplies 1 each 07/24/22 14:30 Iv Access-Emergency Dept IV DIRECTED [facility] IV Miscellaneous Supplies 1 each 07/24/22 17:15 Iv Access IV DIRECTED [facility] Iohexol 100 ml 07/24/22 15:30 07/24/22 15:28 Omnipaque 350 Mg/Ml 100 Ml Btl IJ 08/23/22 23:59 100 ml DIRECTED ONIEL Administration Ketorolac Tromethamine 30 mg 07/24/22 17:14 07/25/22 08:00 Ketorolac 30 Mg/Ml Vial IVP 07/29/22 17:13 30 mg Q6H PRN PRN Administration Lisinopril 20 mg 07/25/22 08:30 07/25/22 07:59 Lisinopril 10 Mg Tab PO 20 mg DAILY ONIEL Administration Ondansetron HCl 4 mg 07/24/22 17:14 Ondansetron 4 Mg/2 Ml Vial IVP Q4H PRN PRN Pantoprazole Sodium 40 mg 07/24/22 18:00 07/24/22 18:34 Pantoprazole 40 Mg Vial IVP 40 mg Q24H ONIEL Administration Sodium Chloride 0 ml 07/24/22 14:26 Normal Saline Flush 10 Ml Syr IVP PRN PRN Sodium Chloride 50 ml 07/24/22 15:30 07/24/22 15:29 Normal Saline - Diluent 50 Ml Vial IJ 50 ml .FOR DI USE ONIEL Administration Sodium Chloride 0 ml 07/24/22 17:14 Normal Saline Flush 10 Ml Syr IVP PRN PRN PFSH Active Problems Active Problems: Problem Status Onset Code Diverticulitis of small intestine with perforation K57.00 Umbilical hernia K42.9 Diverticula of small intestine K57.10 Arthrofibrosis of total knee arthroplasty T84.82XA 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 ITALO FIGUEROA-04 February 2021-sore throat, stuffy nose Diverticulosis HTN (hypertension) Hyperlipidemia Hyperuricemia Lip lesion Low back pain Obesity Obstructive sleep apnea syndrome 12/25 SLEEP STUDY @ [facility]: SEVERE OBSTRUCTIVE SLEEP APNEA; CPAP ADVISED. Prediabetes Rectal bleeding Surgical History Surgical History Arthroplasty of knee Pt had a scope of knee previous to his coming in today for a total knee. 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 stated Cleaned out around the nerves laminectomy/discectomy Tobacco Smoking/Tobacco Use Status: Former Tobacco Use Smokeless tobacco user: chewing tobacco Alcohol Alcohol Intake: current Alcohol intake frequency: a few times a week Alcohol type: beer and hard liquor Substance Use Substance use: Never Substance use type: does not use Details: alcohol on sunday night Vital Signs and Lab Results Vital Signs Most Recent Vital Signs in EMR: Most Recent Vital Signs Temp Pulse Resp BP Pulse Ox 37.0 C 95 H 16 121/77 95 07/25/22 07:50 07/25/22 07:50 07/25/22 07:50 07/25/22 07:50 07/25/22 07:50 Lab Results 07/25/22 06:05 07/25/22 06:05 Blood Type / Crossmatch: 2 No Data to Display Complete Blood Count: White Blood Count 11.34 10^3/uL (4.4-10.8) H 07/25/22 06:05 Red Blood Count 4.14 10^6/uL (4.36-5.78) L 07/25/22 06:05 Hemoglobin 13.1 g/dL (13.5-17.5) L 07/25/22 06:05 Hematocrit 38.8 % (40.0-50.0) L 07/25/22 06:05 Platelet Count 179 10^3/uL (130-400) 07/25/22 06:05 Venous Blood Lactate 0.8 mmol/L (0.6-1.4) 07/24/22 14:40 Complete Metabolic Panel: Sodium 141 mmol/L (136-145) 07/25/22 06:05 Potassium 3.5 mmol/L (3.5-5.1) 07/25/22 06:05 Chloride 105 mmol/L (98-107) 07/25/22 06:05 Carbon Dioxide 28.1 mmol/L (21.0-32.0) 07/25/22 06:05 BUN 18 mg/dL (7-18) 07/25/22 06:05 Creatinine 1.1 mg/dL (0.70-1.30) 07/25/22 06:05 Est GFR (CKD-EPI 2020) 82.29 (mL/min/1.73m2) 07/25/22 06:05 Magnesium 2.0 mg/dL (1.8-2.4) 07/24/22 14:40 Calcium 8.5 mg/dL (8.5-10.1) 07/25/22 06:05 Albumin 3.3 g/dL (3.4-5.0) L 07/24/22 14:40 Glucose 95 mg/dL (74-106) 07/25/22 06:05 Liver Function Panel: Alanine Aminotransferase (ALT/SGPT) 31 U/L (16-63) 07/24/22 14: 40 Aspartate Amino Transf (AST/SGOT) 14 U/L (15-37) L 07/24/22 14: 40 Coagulation Panel: No Data to Display Cardiac Panel: Troponin I < 50 ng/L (<or=60) 07/02/22 Arterial Blood Gas: No Data to Display Venous Blood Gas: No Data to Display Pancreas Panel: Lipase 28 U/L (16-77) 07/24/22 14:40 Thyroid Panel: No Data to Display Infectious Disease: Coronavirus (COVID-19)(PCR) Negative (Negative) 07/03/22 01:41 Coronavirus 2019 Source Nasal/Nares 07/03/22 01:41 Blood Cultures: No Data to Display Toxicology Panel: No Data to Display Imaging and Studies Imaging and Studies Study information below may be from another EMR and interpreted by another provider. Please see original notes in EMR for more complete details. EKG Summary: 07/09: sinus. Anesthesia Assessment and Plan Anesthesia History Personal History: No History of Anesthesia Complications Family History: No Family History of Anesthesia Complications Exercise Tolerance Exercise Tolerance: Metabolic Equivalents>4 Cardiac & Pulmonary Exam Cardiac Exam: Normal S1/S2 Heart Sounds Pulmonary Exam: Clear Bilateral Breath Sounds Implantable Cardiac Device Does patient have a Pacemaker or an ICD?: No Airway Exam Known Difficult Airway: No Mallampati Class: 1 Mouth Opening: Normal (> 3cm) Thyromental Distance: Greater than 3 cm Neck Range of Motion: Full ROM Neck Circumference: Normal Teeth Condition: Normal Dentition ASA Classification ASA Score: ASA 3 Emergency Case?: No NPO Status NPO Status: Full Stomach Anesthesia Plan Resuscitation Status: Full Code Anesthesia Technique: General Anesthesia Airway Planned: Endotracheal Tube Monitors Used: Standard Monitors Preoperative Comments:: 47 yo male with diverticula of the small bowel with worsening inflammation. Currently admitted getting antibiotics. To the OR today for laparoscopic vs open small bowel obstruction. Sig PMHx: KATE (uses CPAP), HTN (lisinopril), preDM (last A1c ~6), LBP/s/p lami, s/p gastric sleeve, former smoker, current chewing tobacco, occ EtOH. Last dose of enoxaparin last night at 1800. Got is lisinopril this AM. On scheduled zosyn. Previous Anes: LMA 5. Onsted 3, grade 1, but difficulty passing ETT due to angle. Mac 4, grade 1, masked with OPA Discussed GACORDELIA, with potential for rescue regional or epidural analgesia.
[2022-07-25] MEDS: ACETAMINOPHEN 1,000 MG/100 ML BTL 400 MG IVPB ×2 (10:27→19:35)
[2022-07-25] MEDS: HYDROmorphone 2 MG/ML SYR IVP ×5 (10:34→23:53)
--- NOTE | 2022-07-25 12:30 | PDOC.CMIN ---
Date of service: 07/25/22 Time of Service: 12:30 Care Management Initial Assmt Initial Assessment REASON FOR HOSPITALIZATION:: Small bowel diverticulitis PREVIOUS FUNCTIONAL STATUS/SOCIAL/FAMILY SUPPORTS:: Vivek lives in [place], [place] with his Alexsandra and his son. 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 Vivek is independent at baseline and does not receive any community services. CURRENT FUNCTIONAL STATUS:: Vivek is consistently ambulating through the hallways. ADVANCE DIRECTIVES:: none on file Has patient been provided with info about the portal/API?: Yes Did the patient sign up for the portal?: Yes CODE STATUS:: Full Code INSURANCE COVERAGE / FINANCIAL ISSUES:: [place] [facility] [place] PRIMARY CARE PHYSICIAN:: Aziza Davis POTENTIAL DISCHARGE NEEDS:: Follow up with surgeon, PCP and plan of care PATIENT/FAMILY EDUCATION NEEDS:: Review of discharge instructions, activity, limitations, diet, follow up plan, Ask Me Three ANTICIPATED BARRIERS TO DISCHARGE:: None identified. TRANSPORTATION:: via private vehicle with family PLAN:: Anticipate Vivek will discharge home with no new services when medically cleared by provider. He will follow up with his surgeon , PCP and plan of care and transport with family. CM will follow and assess for discharge concerns. 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 07/25/22 update: Mac 3 grade 1 with head lift, masked with OPA. Essential hypertension (Acute 03/03/13) Medical History Bilateral knee pain Chronic diarrhea 05/21/15 COLONOSCOPY; DR. ITALO FIGUEROA-04 February 2021-sore throat, stuffy nose Diverticulosis HTN (hypertension) Hyperlipidemia Hyperuricemia Lip lesion Low back pain Obesity Obstructive sleep apnea syndrome 12/25 SLEEP STUDY @ [facility]: SEVERE OBSTRUCTIVE SLEEP APNEA; CPAP ADVISED. Prediabetes Rectal bleeding Surgical History Arthroplasty of knee Pt had a scope of knee previous to his coming in today for a total knee. 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 stated Cleaned out around the nerves laminectomy/discectomy Family History Mother No problems noted. Father No problems noted. Brother No problems noted. Grandfather No problems noted. Grandfather No problems noted. Grandmother No problems noted. Grandmother Diabetes Brother No problems noted. Brother No problems noted. Son No problems noted. Social History Smoking/Tobacco Use Status: Former Tobacco Use Tobacco: How many years used: 10 Smokeless tobacco user: chewing tobacco Smoking risk assessment performed?: Yes Alcohol Intake: current Alcohol Intake frequency: a few times a week Alcohol type: beer and hard liquor Drug use: Never Substance use type: does not use Details: alcohol on sunday night Household members: other Details: 3 current occupation: TEACHER Pets and animals: Yes Pets and animals: dog(s) Current gender identity: male Frequency: daily Sushila/Congregational: Yazidi Do you feel safe at home: Yes Do you feel safe in your relationship?: Yes Readmission Within the Past 30 Days Yes or No: Yes Date of First Admission Date of 1st Admission: 07/03/22 Date of this Admission Date of Admission: 07/24/22 This admission was: Through ED Speicalist Appointments Have you seen any other specialist since your 1st Admission?: Yes Date you saw the Specialist: 07/19/22 Specialist Seen: Dr. Kyle Assessment for Readmission Summary of readmission circumstances, based upon interviews: Recurrent small bowel diverticulitis, known umbilical hernia. Recurrent abdominal pain.
[2022-07-25] MEDS: Lactated Ringers 1,000 ML 125 ML IV (12:40)
--- NOTE | 2022-07-25 13:40 | BOWEL_PTH ---
PATIENT: Vivek Fritz LOC: U#:[id number] AGE/SX: 47/M ROOM: 216 RE07/24/[address]: Eloisa Sierra MD : [id number] BED: A DIS: 07/28/2022 SPEC #: [id number] RECD: 07/25/22 17:06 STATUS: KEN REQ #: [id number] MIAN: 07/25/22 13:[address]: Eloisa Sierra DEPT: Surgical Specimen RECD BY: Cortney Araujo ENTERED: 07/25/22 17:07 SP TYPE: Bowel OTHR DR: Aziza Davis, PRASANNA Tissues: 1 - BOWEL RESECTION(OTHER) Procedures: GROSS AND MICRO LEVEL 5 Comments: [id number]
--- NOTE | 2022-07-25 15:11 | W.ANESPOSTOP ---
Postoperative Evaluation Date, Time and Location Date Performed: 07/25/22 Time Performed: 15:11 Patient Location: PACU Vital Signs Most Recent Imported Vital Signs: Most Recent Vital Signs Temp Pulse Resp BP Pulse Ox 37.0 C 95 H 16 121/77 97 07/25/22 07:50 07/25/22 07:50 07/25/22 07:50 07/25/22 07:50 07/25/22 09:12 Pain Score Most Recent Pain Score: Most Recent Pain Score Pain Level 2 07/25/22 11:34 Assessment Mental Status: Arousable with meaningful communication Airway and Respiratory Function: Patent airway with normal (patient baseline) respiratory exam Cardiovascular Function: Hemodynamically Stable Hydration Status: Adequately Hydrated Nausea & Vomiting: No Nausea or Vomiting Pain: Pain is tolerable per patient Peripheral Nerve Block: Regional nerve block not resolved at time of post operative discharge
--- NOTE | 2022-07-25 15:12 | ROE_ITS ---
Date of service: 07/25/22 Time of Service: 15:12 Operative Note Operative Note DATE OF PROCEDURE: 07/25/22 PRE-OP DIAGNOSIS: small bowel diverticulitis and umbilical hernia POST-OP DIAGNOSIS: same PROCEDURE: Exploratory Laparotomy with resection of small bowel and ansastamosis Primary repair of umbilical hernia SURGEON: Eloisa Sierra ASSISTING SURGEON: Juli Jamison BELLSTAFF: Enrrique Banks ANESTHESIA TYPE: Local By Surgeon, General LMA/ETT and Other (bilateral rectus block) Refer to Anesthesia Record ESTIMATED BLOOD LOSS: 50 PATHOLOGY: other (small intestine) COMPLICATIONS: None Patient was transported to: PACU Patient's condition: stable Indications: Vivek is back with abdominal pain and fevers. He has a leukocytosis and his CT scan shows worsening inflammation around the diverticula in his small intestine.? I discussed the findings with Vivek and his .? I think at this point he needs to have the small bowel resected. He doesnt have an acute abdomen so we can wait until the daytime. Discussed admission, NPO, IV fluids and antibiotics.? Discussed possible laparoscopic small bowel resection vs open small bowel resection. I would also fix his umbilical hernia primarily due to potential for infection if a mesh was placed. We discued risk of hernia recurrance as well as hernia development post surgery due to his body habitus. He is at increased risk of hernia, wound dehisence and skin infection. Findings: 6 inches of inflammed small bowel. There is some inflammatory tissue around the bowel. no gross infection 4 diverticula proximal to the inflammed bowel Procedure Description: After informed consent was obtained the patient was taken to the operating room and placed in a supine position. Monitors and SCDs were applied. The patient was then placed under general anesthesia and intubated. The patient's abdomen was clipped of hair which was removed from the operating field with tape. Next a Correa catheter was placed in the standard fashion. A timeout was done. The patient's name, date of , allergies to medications, procedure to be done, and any expected complications were reviewed. Fire risk was assessed. The abdomen was then prepped and draped in a sterile surgical fashion. We did wait 3 minutes between prepping and draping as recommended. At this point Quarter percent bupivacaine was injected in the right upper quadrant. A small incision was made with a 15 blade. Dissection down to the fascia was done with a hemostat. The skin was grasped with penetrating towel clamps. While pulling up on the skin a 5 mm Visiport was placed under direct visualization into the abdomen. The abdomen was then insufflated. I placed a 5 mm scope and inspected the abdomen. Liver looked normal. I was then able to see a loop of small intestine attached to the abdominal wall it was quite inflamed and there is suppurative material around it. There was also the umbilical hernia with a large sac. The scope was removed as well as the port. Because of all of the inflammation and the fact that the small intestine was attached to the abdominal wall I decided to do an small midline incision to resect the small intestine and fix his umbilical hernia at the same time. The local anesthetic was injected along the midline and around the umbilicus. A 16 cm incision was made from above the umbilicus to just below the umbilicus. Using cautery the subcutaneous tissue was dissected down to the fascia. The fascia was opened. I was able to place 2 fingers underneath the fascia and while protecting this small intestine the rest of the fascia was opened. I was able to bluntly dissect the small intestine away from the abdominal wall. Aerobic and anaerobic cultures were done of the peritoneal fluid and sent to the lab. I had to dissect the small bowel away from the descending colon, but I was able to do this just with blunt dissection through the fibrinous tissue. There were no hard adhesions. I was then able to bring up the infected loop of small bowel through the incision. At this point I ran the bowel from the ligament of Treitz down to the inflamed bowel. There were 4 diverticuli noted proximal to the inflamed bowel. A couple of these diverticuli were at least a centimeter in size. I then inspected the bowel distal to the inflamed loop. No other diverticuli were identified. Decision was made to remove the inflamed bowel as well as the proximal jejunum with the diverticuli. This portion of small intestine measured a foot and a half. Using a hemostat a small opening was made in the mesentery about 2 cm proximal to the first diverticulum in the jejunum. Using a stapler the bowel was stapled and cut. Using a hemostat a small window was created in the mesentery about an inch distal to the inflamed bowel. Using another straight stapler the bowel was transected. A LigaSure was then used to transect the mesentery. Once the bowel was completely resected it was given off the operating field and placed in formalin. The 2 ends of small intestine were then placed side to side making sure that the mesentery was not twisted. The bowel was secured to with a 2-0 silk suture. The corners of the small intestine staple lines were cut and using the 80 PB stapler a new anastomosis was created. The new enterotomy was closed in 2 layers with 2-0 Vicryl running suture. A second layer was done with interrupted 2-0 silk. Next the mesentery defect was closed with another 2-0 Vicryl running suture. The bowel was placed back into the abdomen and covered with the omentum. The abdomen was then irrigated with a liter of warm normal saline. I then palpated the liver to make sure that I did not feel any abnormalities. The liver was smooth. I was then asked by anesthesia to palpate for the NG tube which was in good position and his stomach pouch. 3 sheets of Interceed were then placed into the abdomen to help with adhesions to the abdominal wall. The fascia was grasped with [place] Frank[place]'s and closed with 2-0 Prolene running suture 1 from above and 1 from below. Once the fascia was closed, she was irrigated with normal saline. The subcutaneous tissue was then reapproximated using 3-0 Vicryl interrupted sutures. The dermis was reapproximated with aisha. The 5 mm port site was also stapled closed. The abdomen was then cleaned and dried. A ricardo was placed over the incision. The drapes were re moved. Prior to waking the patient up anesthesia did do a bilateral rectus block. Please see their separate dictation. Once the block was done the patient was woken up extubated and taken back to PACU in stable condition. Sponge, instrument and needle counts were correct at the end of the case. There were no immediate complications.
--- NOTE | 2022-07-25 15:14 | W.ANESNERVE ---
Nerve Block Single Injection Procedure Date and Time Date Performed: 07/25/22 Procedure Start: 14:18 Location Where Procedure Performed Procedure Location: Operating Room Procedure Stop: 14:28 Reason Performed: Postoperative Analgesia Requesting Provider: Eloisa Sierra Timeout Performed Timeout Performed: Yes Monitoring Used ECG, Blood Pressure and SpO2 Sterility Sterility: Hand Hygiene, Surgical Cap, Surgical Mask, Sterile Gloves and Chlorhexidine Sedation Given During Procedure Sedation Given (Indicate Dose Given): No Sedation given Patient Mental Status Patient Mental Status: Performed under general anesthesia Nerve Block 1st Nerve Block: Laterality: Bilateral Block Type: Rectus Sheath (Bilateral) Ultrasound Image Saved?: Yes Needle / Catheter Used: 100mm SonoPlex II Local Anesthetic Bolus (Indicate Dose Given): Bupivacaine 0.375% Dose:: 30 mL Additives (Indicate Dose Given): Epinephrine to make 1:200,000 (5mcg/ml) Dose:: 150 mcg and Precedex Dose:: 50 mcg Ultrasound: Sterile probe cover and gel used Nerve Stimulator: Not Used Paresthesia: None Procedure Tolerated: No Complications Procedure Outcome: Successful Performed By: Edis Miner
[2022-07-25] MEDS: POTASSIUM CHLORIDE 10 MEQ/100 ML BAG 100 MEQ IVPB (16:58)
[2022-07-25] MEDS: Enoxaparin 40 MG/0.4 ML SYR SC (17:36)
[2022-07-25] MEDS: Pantoprazole 40 MG VIAL IVP (17:36)
[2022-07-25] MEDS: diphenhydrAMINE 25 MG CAP 50 MG PO (23:52)
[2022-07-25] MEDS: LORazepam 0.5 MG TAB PO (23:52)
[2022-07-26] MEDS: Lactated Ringers 1,000 ML 125 ML IV ×2 (01:39→09:22)
[2022-07-26] MEDS: PIPERACILLIN/TAZO 3.375 GM in Normal Saline 50 ML IVPB ×4 (05:20→23:15)
[2022-07-26 07:15] LABS: Abs Immature Grans 0.08 10^3/uL (0.0-0.06); Absolute Basophil Count 0.02 10^3/uL (0.0-0.2); Absolute Lymphocyte Count 0.89 10^3/uL (1.2-3.4); Absolute Monocyte Count 0.58 10^3/uL (0.1-0.8); Absolute Neutrophil Count 9.79 10^3/uL (1.2-6.7); Basophils % 0.2; HCT 37.9 % (40.0-50.0); HGB 12.7 g/dL (13.5-17.5); Immature Grans % 0.7; Lymphocytes % 7.8; MCH 31.1 pg (27.0-33.0); MCHC 33.5 % (32.0-36.0); MCV 93 fL (80-95); MPV 10.4 fL (8.0-11.0); Monocytes % 5.1; Neutrophils % 86.2; Platelet Count 200 10^3/uL (130-400); RBC 4.08 10^6/uL (4.36-5.78); RDW 13.2 % (11.8-14.1); RDW-SD 44.7 fL; WBC 11.36 10^3/uL (4.4-10.8)
[2022-07-26 07:31] LABS: Anion Gap 8.6 mmol/L (3-11); BUN 26 mg/dL (7-18); CO2 24.4 mmol/L (21.0-32.0); Calcium 8.6 mg/dL (8.5-10.1); Chloride 108 mmol/L (98-107); Estimated GFR 92.26 (mL/min/1.73m2); Glucose 123 mg/dL (74-106); Sodium 141 mmol/L (136-145)
[2022-07-26 07:39] VITALS: BP 162/98; PULSE 85; RESP 17; TEMP 36.9; O2SAT 96
--- NOTE | 2022-07-26 08:34 | W.PM.PROGNOT ---
Date of Service Date of service: 07/26/22 Time of Service: 08:35 Assessment and Plan Assessment and plan (1) Diverticula of small intestine: Status: Acute Assessment and plan: POD #1 s/p laparotomy resection of small bowel with an anastomosis. NG tube in place with 200cc output over night NPO; may have ice chips and sips of water No bowel sounds SEBASTIEN dressing is in place Correa in place with magdalena colored urine noted Pain fairly well controlled since patient has been resting. Will reassess pain once patient has been more mobile later today Encouraged and discussed getting OOB, sittin in the chair and ambulation as tolerated Continue pulmonary toilet P// Await for bowel function to return. Once there is an increase in bowel sounds and a decreased in NG output will consider pulling NG tube. I saw and examined Vivek, and I agree with Radha's documentation so far. He says he feels pretty good this evening. He has been up and moving around. He says his pain is controlled. He thinks he is having a little bit of flatus but no bowel movement yet. He denies any nausea or vomiting. His abdomen is soft, and not distended. His dressing is clean and dry. NG tube is mildly bilious, but relatively low volume. It looks like it is drained about 250 cc so far today. I would like to leave the NG tube in place overnight, and reassess in the morning. His leukocytosis has been improving since his operation, and we will repeat the CBC again tomorrow. (2) Umbilical hernia: Status: Acute (3) Difficult intubation: Status: Acute (4) Obstructive sleep apnea syndrome: Subjective Subjective Interval history since last seen: Arrived with the patient lying in bed. He states that he has not been up yet. Abdomen is sore but he expresses that he would like to get up and moving today. Exam Const General: cooperative, healthy appearing and comfortable Orientation: alert and oriented x3 Resp Effort & Inspection: normal respiratory effort, no audible wheezes and no cough GI Inspection: normal to inspection Palpation: soft, no guarding and tender Auscultation: absent bowel sounds Other: SEBASTIEN dressing is in place Objective Last Vital Signs Temp 36.9 C 07/26/22 07:39 Pulse 85 07/26/22 07:39 Resp 17 07/26/22 07:39 BP 162/98 H 07/26/22 07:39 Pulse Ox 96 07/26/22 07:39 Laboratory Results - last 24 hr 07/26/22 07/26/22 06:03 06:03 WBC 11.36 H RBC 4.08 L Hgb 12.7 L Hct 37.9 L MCV 93 MCH 31.1 MCHC 33.5 RDW 13.2 Plt Count 200 MPV 10.4 Immature Gran % 0.7 Neutrophils % 86.2 Lymphocytes % 7.8 Monocytes % 5.1 Eosinophils % 0.0 Basophils % 0.2 Nucleated RBC % 0.0 Absolute Neutrophils 9.79 H Absolute Lymphocytes 0.89 L Absolute Monocytes 0.58 Absolute Eosinophils 0.00 Absolute Basophils 0.02 Sodium 141 Potassium 4.0 Chloride 108 H Carbon Dioxide 24.4 Anion Gap 8.6 BUN 26 H Creatinine 1.0 Est GFR (CKD-EPI 2020) 92.26 Glucose 123 H Calcium 8.6 Time Spent with Patient Time Spent with Patient: 25-34 minutes Time was spent: preparing to see the patient(eg.review tests), indepentently interpreting results and counseling the patient
[2022-07-26] MEDS: Lisinopril 10 MG TAB 20 MG PO (08:59)
[2022-07-26] MEDS: Normal Saline Flush 10 ML SYR IVP ×3 (09:24→18:31)
[2022-07-26] MEDS: Ketorolac 30 MG/ML VIAL IVP ×2 (11:39→22:15)
[2022-07-26] MEDS: HYDROmorphone 2 MG/ML SYR IVP ×2 (12:57→17:23)
[2022-07-26 14:55] VITALS: BP 149/85; PULSE 91; RESP 17; TEMP 37; O2SAT 95
--- NOTE | 2022-07-26 16:35 | PDOC.CMPRO ---
Date of service: 07/26/22 Time of Service: 16:35 Care Management Progress Note Progress Note Text Progress Note Text: S/O: Vivek ambulates through the hallways consistently. CM continues to follow. A: 47 year old male admitted to [facility] for small bowel diverticulitis P: Vivek will return home when ready per MD. He continues to be closely monitored
[2022-07-26 17:05] VITALS: RESP 18; O2SAT 96
[2022-07-26] MEDS: Normal Saline 500 ML 30 ML IV (18:19)
[2022-07-26] MEDS: Enoxaparin 40 MG/0.4 ML SYR SC (18:30)
[2022-07-26] MEDS: Pantoprazole 40 MG VIAL IVP (18:31)
[2022-07-26] MEDS: ACETAMINOPHEN 1,000 MG/100 ML BTL 400 MG IVPB (22:14)
[2022-07-26] MEDS: diphenhydrAMINE 25 MG CAP 50 MG PO (22:15)
[2022-07-26 23:21] VITALS: BP 134/76; PULSE 79; RESP 16; TEMP 37.2; O2SAT 93
[2022-07-27] MEDS: HYDROmorphone 2 MG/ML SYR IVP ×3 (00:27→21:35)
[2022-07-27] MEDS: LORazepam 0.5 MG TAB PO ×2 (00:29→21:35)
[2022-07-27] MEDS: Lactated Ringers 1,000 ML 125 ML IV ×3 (00:29→17:44)
[2022-07-27] MEDS: PIPERACILLIN/TAZO 3.375 GM in Normal Saline 50 ML IVPB ×4 (05:40→23:25)
[2022-07-27 07:01] LABS: Abs Immature Grans 0.06 10^3/uL (0.0-0.06); Absolute Basophil Count 0.03 10^3/uL (0.0-0.2); Absolute Eosinophil Count 0.03 10^3/uL (0.0-0.7); Absolute Neutrophil Count 5.95 10^3/uL (1.2-6.7); Basophils % 0.4; Eosinophils % 0.4; HGB 11.6 g/dL (13.5-17.5); Immature Grans % 0.7; Lymphocytes % 19.3; MCHC 33.1 % (32.0-36.0); MCV 94 fL (80-95); MPV 9.5 fL (8.0-11.0); Monocytes % 7.3; Neutrophils % 71.9; Platelet Count 213 10^3/uL (130-400); RBC 3.74 10^6/uL (4.36-5.78); RDW 12.9 % (11.8-14.1); RDW-SD 44.5 fL; WBC 8.27 10^3/uL (4.4-10.8)
[2022-07-27 07:16] LABS: Anion Gap 7.7 mmol/L (3-11); BUN 29 mg/dL (7-18); CO2 25.3 mmol/L (21.0-32.0); CREATININE 1.1 mg/dL (0.70-1.30); Calcium 8.7 mg/dL (8.5-10.1); Chloride 110 mmol/L (98-107); Estimated GFR 82.29 (mL/min/1.73m2); Glucose 91 mg/dL (74-106); Sodium 143 mmol/L (136-145)
[2022-07-27 07:43] VITALS: BP 153/91; PULSE 74; RESP 18; TEMP 36.7; O2SAT 95
[2022-07-27] MEDS: Lisinopril 10 MG TAB 20 MG PO (08:51)
[2022-07-27] MEDS: Normal Saline Flush 10 ML SYR IVP ×2 (08:51→17:42)
[2022-07-27] MEDS: Ketorolac 30 MG/ML VIAL IVP (08:51)
--- NOTE | 2022-07-27 09:33 | PDOC.CMPRO ---
Date of service: 07/27/22 Time of Service: 09:33 Care Management Progress Note Progress Note Text Progress Note Text: S/O:Vivek was sitting up in bed when CM met with him. He appeared to be in good spirits and stated that he is feeling much better. He had a bowel resection 2 days ago. He shared that his pain is controlled and he is tolerating a liquid diet. Vivek has been ambulating in the halls and informed CM that he is hopeful he may be discharged as soon as tomorrow. He denied the need for any services. A: Vivek is a 47 year old man admitted on 07/24/22 with Diverticulitis P: Anticipate Vivek will discharge home with no new services when medically cleared. He will follow up with his community providers and plan of care and transport with family. CM will follow and support discharge needs.
--- NOTE | 2022-07-27 10:08 | PGE_ITS ---
Date of Service Date of service: 07/27/22 Time of Service: 10:08 Assessment and Plan Assessment and plan (1) Diverticulitis of small intestine with perforation: Status: Acute Assessment and plan: s/p small bowel resection POD #2 doing well. encourage walking and IS. d/c NGT trial of po's and see how he tolerates. He if no nausea or bloating can proceed to clears. decrease fluids as po intacke increases. Feels his pain is adequately controlled. if tolerates po meds can switch to oral regimen. (2) Umbilical hernia: Status: Acute (3) Diverticula of small intestine: Status: Acute (4) Difficult intubation: Status: Acute (5) Essential hypertension: Status: Acute (6) HTN (hypertension): (7) Hyperlipidemia: Qualifiers: Hyperlipidemia type: pure hypertriglyceridemia Qualified Code(s): E78.1 - Pure hyperglyceridemia Subjective Subjective Interval history since last seen: Pt is doing well. no headaches. No CP or SOB. no productive cough. no dysuria. no leg pain or swelling. pt did have a BM and is passing gas. We will d/c NGT and get him up walking around. We will try a glass of clears and make sure he tolerates this. If he meadosw sthan clear for lunch Exam Const Other: PHYSICAL EXAM GENERAL APPEARANCE: Alert, healthy appearance, oriented, x 3,? in no acute distress HYDRATION: Well hydrated HEAD, EYES, EARS, NECK, THROAT: Head is normocephalic, pupils equal, round, reactive to light and accommodation, ocular movement intact, sclera clear and no jaundice. ?Dentition intact. LUNGS: normal respiration/normal chest excursion. ?Clear to auscultation bilaterally. ?No wheeze. ?HEART: Regular rate and rhythm. no murmurs EXTREMITY: No edema or cyanosis.? no leg pain, redness, swelling.? ABDOMEN: soft and non-tender to palpation.? Normal bowel sounds.? SEBASTIEN over incision minimal strikethrough. Objective Last Vital Signs Temp 36.7 C 07/27/22 07:43 Pulse 74 07/27/22 07:43 Resp 18 07/27/22 07:43 BP 153/91 H 07/27/22 07:43 Pulse Ox 95 07/27/22 07:43 Laboratory Results - last 24 hr 07/27/22 07/27/22 06:29 06:29 WBC 8.27 RBC 3.74 L Hgb 11.6 L Hct 35.0 L MCV 94 MCH 31.0 MCHC 33.1 RDW 12.9 Plt Count 213 MPV 9.5 Immature Gran % 0.7 Neutrophils % 71.9 Lymphocytes % 19.3 Monocytes % 7.3 Eosinophils % 0.4 Basophils % 0.4 Nucleated RBC % 0.0 Absolute Neutrophils 5.95 Absolute Lymphocytes 1.60 Absolute Monocytes 0.60 Absolute Eosinophils 0.03 Absolute Basophils 0.03 Sodium 143 Potassium 4.0 Chloride 110 H Carbon Dioxide 25.3 Anion Gap 7.7 BUN 29 H Creatinine 1.1 Est GFR (CKD-EPI 2020) 82.29 Glucose 91 Calcium 8.7 Time Spent with Patient Time Spent with Patient: 25-34 minutes Time was spent: preparing to see the patient(eg.review tests), obtaining and/or reviewing separately otained hiistory, ordering medications,tests, procedures, referring, communicating with other health primary care nurse practitioner, indepentently interpreting results, counseling the patient and care coordination
[2022-07-27 12:24] VITALS: BP 134/84; PULSE 71; RESP 17; TEMP 36.6; O2SAT 95
--- NOTE | 2022-07-27 14:34 | CHAPLAIN ---
Vivek was resting in bed when I visited. His Alexsandra and just arrived. Vivek said he is feeling better and hopes to be going home soon. I explained my role and offered support.
[2022-07-27 15:32] VITALS: BP 143/88; PULSE 71; RESP 17; TEMP 36.6; O2SAT 96
[2022-07-27] MEDS: Enoxaparin 40 MG/0.4 ML SYR SC (17:44)
[2022-07-27] MEDS: Pantoprazole 40 MG VIAL IVP (17:45)
--- NOTE | 2022-07-27 18:12 | NUR.NOTE ---
Nursing Note: charge nurse dalia notified that operation note still had not been completed by dr nash.
[2022-07-27] MEDS: diphenhydrAMINE 25 MG CAP 50 MG PO (21:35)
[2022-07-27 23:53] VITALS: BP 144/87; PULSE 67; RESP 16; TEMP 37; O2SAT 96
[2022-07-28] MEDS: ACETAMINOPHEN 1,000 MG/100 ML BTL 400 MG IVPB (00:02)
[2022-07-28] MEDS: Ketorolac 30 MG/ML VIAL IVP (00:02)
[2022-07-28] MEDS: Lactated Ringers 1,000 ML 125 ML IV (01:29)
[2022-07-28] MEDS: PIPERACILLIN/TAZO 3.375 GM in Normal Saline 50 ML IVPB (05:31)
[2022-07-28 07:44] VITALS: BP 154/96; PULSE 69; RESP 18; TEMP 36.7; O2SAT 97
--- NOTE | 2022-07-28 07:54 | W.PM.PROGNOT ---
Date of Service Date of service: 07/28/22 Time of Service: 06:30 Assessment and Plan Assessment and plan (1) Diverticulitis of small intestine with perforation: Status: Acute Assessment and plan: s/p small bowel resection POD #3 doing well. encourage walking and IS. Will advance his diet. Start on PO antibiotics restart home meds HOpefully Home later today (2) Umbilical hernia: Status: Acute Assessment and plan: primary repair (3) Essential hypertension: Status: Acute Subjective Subjective Interval history since last seen: Vivek is up and walking in his room when I walked in. He feels good. His pain is fairly well controlled. He has been able to tolerate full liquid diet without nausea or vomiting. He had a bowel movement which was large today. He has been afebrile and his white count has been normal. His cultures did come back positive for E. coli 2 different types and Enterococcus. Exam Const General: cooperative and no acute distress Nutritional Appearance: overweight Orientation: alert and oriented x3 HENMT Head: normocephalic and atraumatic Resp Effort & Inspection: normal respiratory effort Auscultation: clear to auscultation bilaterally Cardio Rate: regular rate Rhythm: regular rhythm GI Inspection: normal to inspection and other (SEBASTIEN dressing with a small amount of discharge) Palpation: soft, no hepatosplenomegaly and nontender Auscultation: normal bowel sounds Objective Last Vital Signs Temp 98.1 F 07/28/22 07:44 Pulse 69 07/28/22 07:44 Resp 18 07/28/22 07:44 BP 154/96 H 07/28/22 07:44 Pulse Ox 97 07/28/22 07:44 Time Spent with Patient Time Spent with Patient: <25 minutes Time was spent: preparing to see the patient(eg.review tests), indepentently interpreting results and counseling the patient
[2022-07-28 08:00] VITALS: RESP 18; O2SAT 96; O2SAT 98
[2022-07-28] MEDS: Lisinopril 10 MG TAB 20 MG PO (08:28)
[2022-07-28] MEDS: Amoxicillin 875/Clav. 125 TAB PO (08:28)
--- NOTE | 2022-07-28 13:24 | DSE_ITS ---
Date of service: 07/28/22 Time of Service: 13:25 DS: Diagnosis Discharge Diagnosis (1) Diverticulitis of small intestine with perforation: Status: Acute (2) Umbilical hernia: Status: Acute (3) Essential hypertension: Status: Acute Discharge Plan Disposition Patient Disposition: Home Condition: Improving Discharge Details Reason For Visit: Small Bowel Diverticulitis Admit Date/Time: 07/24/22 17:14 Admit Provider: Eloisa Sierra Attending Provider: Eloisa Sierra [facility] Hospital Course: Mr. Fritz is a 47 year old male who was admitted for small bowel diverticulitis. He was not improving after 2 courses of antibiotics. He went to surgery and had small bowel resection. POD #3 he had a BM, was tolerating a regular diet, and pain was controlled. He was D/Cd to home Home Meds and New Rx's Prescriptions: New amoxicillin-pot clavulanate 875-125 mg Tablet 1 tab PO BID Qty: 9 0RF tramadol 50 mg tablet 50 mg PO Q6H PRNQty: 14 0RF Continued lisinopril 10 mg tablet 20 mg PO DAILY Qty: 180 0RF acetaminophen [Tylenol Extra Strength] 500 mg tablet 1,000 mg PO Q8H PRN PRNQty: 60 0RF Discharge Instructions Additional Instructions: Activity at Home after surgery: 1. Make sure you walk outside at least 4 times per day 2. You should be able to climb a flight of stairs 3. No driving while in pain or taking pain medications 4. No strenuous activity or heavy lifting for 2 weeks (laparoscopic surgery) or 4 weeks (open surgery) Diet, Nutrition, & wound healin. Avoid alcohol until after you are recovered from your surgery 2. Make sure to eat plenty of lean protein (meat, fish, eggs, cottage cheese, beans) 3. Eat a variety of fruits and vegetables. Eat plenty of high fiber foods to avoid constipation. 4. Drink plenty of liquids to stay hydrated and avoid constipation Pain Medications: 1. Tylenol 650mg every 6 hours as needed and Ibuprofen 600 mg every 6 hours as needed. You may alternate between the 2 medications every 3 hours 2. If a narcotic has been prescribed take as directed only for breakthrough pain For Constipation: 1. Take Milk of Magnesia or MiraLax as needed for constipation Other: 1. You may shower daily. Do not scrub the incisions 2. Do not soak the incisions for 1 week 3. You may alternate ice and heat as needed for pain and swelling Wound Care: 1. Keep the incisions clean and dry Dressing- leave on until Sunday Please call our office if you develop: 1. Fevers >101.5 2. Nausea or Vomiting 3. Worsening pain 4. Redness and thick discharge from the wounds If after hours please call the Hospital at and ask to speak to the on-call surgeon Referrals: Eloisa Sierra MD [ [facility] STAFF PHYSICIAN] - 07/31/22 1:00 am Activity:: as above Equipment/Supplies:: No Equipment Needed Diet:: heart healthy Discharge Orders Discharge Orders: Discharge Order (Routine); Ordered 07/28/22 Ordered By: Eloisa Sierra DS: Summary Time Spent with Patient providing and/or coordinating discharge services: Less than 30 minutes Status at Discharge Functional status at discharge: independent ambulation Overall status at discharge: patient is back to baseline Mental Status: mental status grossly normal Speech and Movement: speech and movement normal Mood: congruent mood Affect: normal affect Exam Psych Mental Status: mental status grossly normal Speech and Movement: speech and movement normal Mood: congruent mood Affect: normal affect DS: Data Vitals/I&O Vitals and I&O: Vital Signs Temperature 98.1 F 07/28/22 07:44 Temperature Source Tympanic 07/28/22 07:44 Pulse 69 07/28/22 07:44 Pulse Rhythm Regular 07/28/22 08:00 Respiratory Rate 18 07/28/22 08:00 Respiratory Effort Normal, Non-Labored 07/28/22 08:00 Respiratory Depth Normal 07/28/22 08:00 Respiratory Pattern Normal 07/28/22 08:00 Blood Pressure 154/96 H 07/28/22 07:44 Blood Pressure Position Sitting 07/24/22 13:38 Pulse Oximetry 96 07/28/22 08:00 Respiratory End-tidal CO2 39 07/25/22 16:00 Oxygen Delivery Method Room Air 07/28/22 08:00 Oxygen Flow Rate 0 07/28/22 08:00 Pain Level 0 07/28/22 07:44 Comment RN informed of vs 07/24/22 18:00 Intake & Output 07/27/22 07/28/22 07/28/22 23:59 11:59 23:59 Intake Total 3200 / 4450 2378.75 / 2378.75 Output Total 600 / 750 1000 / 1000 Balance 2600 / 3700 1378.75 / 1378.75 Intake: IV 1150 / 2300 2128.75 / 2128.75 Oral 2050 / 2150 250 / 250 Output: Urine 600 / 600 1000 / 1000 Other: Urine Color Dark Brie Straw Urine Appearance Clear Clear Urine Odor None None Comment unmeasured occurance Stool Size Large Stool Characteristics Foamy Brown Voiding Methods Urinal Data Completed and Pending Labs on day of discharge: Preliminary micro results at discharge 07/25/22 13:20 Abscess Culture - Preliminary Abdomen Escherichia coli Escherichia coli#2 Enterococcus Species 07/25/22 13:20 Anaerobic Culture - Preliminary Abdomen PFSH All Active Problems Diverticulitis of small intestine with perforation (Acute) Umbilical hernia (Acute) Diverticula of small intestine (Acute) Arthrofibrosis of total knee arthroplasty (Acute) RIGHT S/P manipulation under anesthesia: 05/14/2020 S/P arthroscopic synovectomy: 04/27/2021 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 07/25/22 update: Mac 3 grade 1 with head lift, masked with OPA. Essential hypertension (Acute 03/03/13) Medical History Bilateral knee pain Chronic diarrhea 05/21/15 COLONOSCOPY; DR. ITALO FIGUEROA-04 February 2021-sore throat, stuffy nose Diverticulosis HTN (hypertension) Hyperlipidemia Hyperuricemia Lip lesion Low back pain Obesity Obstructive sleep apnea syndrome 12/25 SLEEP STUDY @ [facility]: SEVERE OBSTRUCTIVE SLEEP APNEA; CPAP ADVISED. Prediabetes Rectal bleeding Surgical History Arthroplasty of knee Pt had a scope of knee previous to his coming in today for a total knee. 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 stated Cleaned out around the nerves laminectomy/discectomy Family History Mother No problems noted. Father No problems noted. Brother No problems noted. Grandfather No problems noted. Grandfather No problems noted. Grandmother No problems noted. Grandmother Diabetes Brother No problems noted. Brother No problems noted. Son No problems noted. Social History Smoking/Tobacco Use Status: Former Tobacco Use Tobacco: How many years used: 10 Smokeless tobacco user: chewing tobacco Smoking risk assessment performed?: Yes Alcohol Intake: current Alcohol Intake frequency: a few times a week Alcohol type: beer and hard liquor Drug use: Never Substance use type: does not use Details: alcohol on sunday night Household members: other Details: 3 current occupation: TEACHER Pets and animals: Yes Pets and animals: dog(s) Current gender identity: male Frequency: daily Sushial/Judaism: Denominational Do you feel safe at home: Yes Do you feel safe in your relationship?: Yes Time Spent with Patient Time Spent with Patient: 45-69 minutes Time was spent: preparing to see the patient(eg.review tests), obtaining and/or reviewing separately otained hiistory, indepentently interpreting results and counseling the patient
--- NOTE | 2022-07-28 13:59 | NUR.NOTE ---
Patient has been DC. PIV & midline have both been removed. DC instructions have been reviewed with patient. All questions & concerns have been addressed. Patient will be transfered to the 1st floor via WC & placed into the care with his father. Nursing Note:
--- NOTE | 2022-07-28 16:49 | PDOC.CMDIS ---
Date of service: 07/28/22 Time of Service: 16:50 LACE Index Scoring Tool Questions: Length of Stay (in days): 4 - 6 (yes) Was the patient admitted via the E.D.?: Yes E.D. Visits: 2 Answers: Total Score: 9 Risk of Readmission: Low Risk Care Management Discharge Plan Reason for Hospitalization: Small bowel diverticulitis Discharge Plan: Vivek will discharge home with no new services. He will follow up with his community providers and plan of care and transport with family. Patient/Family Education Needs: Review of discharge instructions, activity, limitations, diet, follow up plan, Ask Me Three
== END 2022-07-28 14:17 | disposition home or self-care (01) | DRG 330 ==
LOC: ER 17:42 → MS 17:52
PROVIDERS: Physician Assistant; Admitting Provider Surgery; Emergency Provider Physician Assistant; PCP Nurse Practitioner Family; Visit Provider Surgery
PROC: 0DJD4ZZ Inspection of Lower Intestinal Tract, Percutaneous Endoscopic Approach (ICD-10-PCS; CPT 49320; principal; 2022-07-25 12:00)
DX: K57.00 Diverticulitis of small intestine with perforation and abscess without bleeding (principal); Z68.41 Body mass index [BMI] 40.0-44.9, adult; K42.9 Umbilical hernia without obstruction or gangrene; K66.0 Peritoneal adhesions (postprocedural) (postinfection); Z53.31 Laparoscopic surgical procedure converted to open procedure; G47.33 Obstructive sleep apnea (adult) (pediatric); I10 Essential (primary) hypertension; E78.5 Hyperlipidemia, unspecified; E79.0 Hyperuricemia without signs of inflammatory arthritis and tophaceous disease; E66.9 Obesity, unspecified; R73.03 Prediabetes; M54.50 Low back pain, unspecified; Z98.84 Bariatric surgery status; Z96.651 Presence of right artificial knee joint; B95.2 Enterococcus as the cause of diseases classified elsewhere; B96.20 Unspecified Escherichia coli [E. coli] as the cause of diseases classified elsewhere
CPT/HCPCS: 44120; 49591; 36415; 76942; 80048; 80053; 83690; 87077; 96361; 96374; 96375; 99285; J1650; 74177; 81003; 81015; 83605; 83735; 85025; 87070; 87075; 87186; 87205; 88307; J0131; J0171; J1100; J1170; J1885; J2250; J2370; J2405; J2543; J2704; J3475; J3480; J3490

== ENCOUNTER 2022-11-09 11:37 | Outpatient (CLI) | payer BC, SELFPAY ==
--- NOTE | 2022-11-09 11:15 | DI.RAD_ITS ---
Exam(s) XR KNEE LT 3V AP,LAT,GARTH EXAM: XR KNEE LT 3V AP,LAT,GARTH CLINICAL HISTORY: left knee pain. TECHNIQUE: 2D digital imaging was performed of the left knee. Three images were obtained. AP, late ral and PA tunnel views were obtained. COMPARISON: CR KNEES BILAT AP LATERALS from 01/11/2017 CR XR KNEE RT 2V AP,LAT from 04/04/2021 FINDINGS: BONES: No acute fracture is present. No bony destructive lesion is seen. There are enthesophytes at the anterior patella. JOINTS: Moderate narrowing of the medial femoral tibial joint is noted. No joint effusion is seen. N o loose body. SOFT TISSUE: Normal. IMPRESSION: Mild degenerative changes of the knee. DATA REPOSITORY: RADIATION DOSE DELIVERED:
== END 2022-11-09 11:38 | disposition home or self-care (01) ==
LOC: DIORS 11:38
PROVIDERS: PCP Nurse Practitioner Family; Referring Provider Nurse Practitioner Family; Visit Provider Physician Assistant
DX: M17.12 Unilateral primary osteoarthritis, left knee (principal)
CPT/HCPCS: 73562

== ENCOUNTER 2022-11-09 15:47 | Outpatient (REF) | payer BC, SELFPAY ==
[2022-11-09 16:20] LABS: Nucleated Cells 367 uL (0); Source Synovial
[2022-11-09 16:31] LABS: Clarity Clear
[2022-11-09 17:24] LABS: Crystals (BF) No Crystals seen; Source Synovial
[2022-11-09 17:25] LABS: Mononuclear Cells 98 %; Polynuclear Cells 2 %
== END 2022-11-09 15:48 | disposition home or self-care (01) ==
LOC: LBN 15:47
PROVIDERS: PCP Nurse Practitioner Family; Visit Provider Student in an Organized Health Care Education/Training Program
DX: M25.562 Pain in left knee (principal); M25.462 Effusion, left knee; M17.12 Unilateral primary osteoarthritis, left knee
CPT/HCPCS: 87070; 87205; 89051; 89060

== ENCOUNTER 2023-06-11 15:45 | Outpatient (CLI) | payer BC, SELFPAY ==
--- NOTE | 2023-06-11 15:15 | DI.RAD_ITS ---
Exam(s) XR ANKLE LT COMPLETE EXAM: XR ANKLE LT COMPLETE CLINICAL HISTORY: L ankle pain TECHNIQUE: 2D digital imaging was performed. Three views. COMPARISON: No exams were available for comparison FINDINGS: BONES: No acute fracture is present. No bony destructive lesion is seen. Mild spurring at the tip of the medial malleolus. Heel spurs. Calcification in the plantar fascia. JOINTS:The ankle mortise is normally aligned. Ankle joint space is maintained. SOFT TISSUE: Normal. IMPRESSION: Mild degenerative changes and heel spurs. Calcification in the plantar fascia. DATA REPOSITORY: RADIATION DOSE DELIVERED:
== END 2023-06-11 15:46 | disposition home or self-care (01) ==
LOC: DIORS 15:45
PROVIDERS: PCP Nurse Practitioner Family; Visit Provider Physician Assistant
DX: M77.32 Calcaneal spur, left foot (principal)
CPT/HCPCS: 73610

== ENCOUNTER 2023-06-26 16:12 | Outpatient (REF) | payer BC, SELFPAY ==
[2023-06-26 18:56] LABS: HCT 46.8 % (40.0-50.0); HGB 15.8 g/dL (13.5-17.5); MCH 32.7 pg (27.0-33.0); MCHC 33.8 % (32.0-36.0); MCV 97 fL (80-95); MPV 10.4 fL (8.0-11.0); Platelet Count 197 10^3/uL (130-400); RBC 4.83 10^6/uL (4.36-5.78); RDW 13.4 % (11.8-14.1); RDW-SD 47.3 fL; WBC 6.58 10^3/uL (4.4-10.8)
[2023-06-26 19:14] LABS: ALT 47 U/L (16-63); AST 23 U/L (15-37); Alkaline Phosphatase 91 U/L (46-116); Anion Gap 8.4 mmol/L (3-11); BUN 17 mg/dL (7-18); Bilirubin, Total 0.5 mg/dL (0.2-1.0); CO2 29.6 mmol/L (21.0-32.0); Calcium 9.1 mg/dL (8.5-10.1); Chloride 104 mmol/L (98-107); Estimated GFR 91.69 (mL/min/1.73m2); Glucose 99 mg/dL (74-106); Potassium 4.1 mmol/L (3.5-5.1); Sodium 142 mmol/L (136-145); TSH (W/Ref FT4) 2.03 uIU/mL (0.36-3.74); Uric Acid 8.6 mg/dL (3.5-7.2)
[2023-06-26 19:28] LABS: Cholesterol 187 mg/dL (<200); HDL Cholesterol 33 mg/dL (40-60); Triglyceride 527 mg/dL (<150)
[2023-06-26 19:29] LABS: Hemoglobin A1C 5.4 % (<5.7)
[2023-06-26 19:48] LABS: LDL CHOLESTEROL 75 mg/dL (<100)
== END 2023-06-26 16:13 | disposition home or self-care (01) ==
LOC: LBN 16:12
PROVIDERS: PCP Nurse Practitioner Family; Visit Provider Nurse Practitioner Family
DX: Z00.00 Encounter for general adult medical examination without abnormal findings (principal); E78.1 Pure hyperglyceridemia; G47.33 Obstructive sleep apnea (adult) (pediatric); S93.402A Sprain of unspecified ligament of left ankle, initial encounter; E66.9 Obesity, unspecified; I10 Essential (primary) hypertension; R73.03 Prediabetes; E78.5 Hyperlipidemia, unspecified
CPT/HCPCS: 80053; 80061; 83721; 85027; 83036; 84443; 84550

== ENCOUNTER 2023-07-19 15:48 | Outpatient (CLI) | payer BC, SELFPAY ==
--- NOTE | 2023-07-19 08:15 | DI.RAD_ITS ---
Exam(s) XR ANKLE LT 2V EXAM: XR ANKLE LT 2V CLINICAL HISTORY: eval L foot pain TECHNIQUE: 2D digital imaging was performed. Two views. COMPARISON: CR XR ANKLE LT COMPLETE from 06/11/2023 FINDINGS: BONES: No acute fracture is present. No bony destructive lesion is seen. Prominent calcaneal spurs. Calcification in plantar fascia. JOINTS:The ankle mortise is normally aligned. SOFT TISSUE: mild lateral soft tissue swelling IMPRESSION: heel spurs. DATA REPOSITORY: RADIATION DOSE DELIVERED:
--- NOTE | 2023-07-19 08:15 | DI.RAD_ITS ---
Exam(s) XR FOOT LT COMPLETE EXAM: XR FOOT LT COMPLETE CLINICAL HISTORY: eval L foot pain. TECHNIQUE: 2D digital imaging was performed. Three views. COMPARISON: No exams were available for comparison FINDINGS: BONES: No acute fracture is present. No bony destructive lesion is seen. Prominent plantar calcaneal spur. Small enthesophyte at the Achilles insertion. Mild intertarsal degenerative changes. JOINTS: No dislocation present. SOFT TISSUE: Calcifications in the plantar fascia. IMPRESSION: Prominent plantar calcaneal spur. Calcification in the plantar fascia. DATA REPOSITORY: RADIATION DOSE DELIVERED:
== END 2023-07-19 15:49 | disposition home or self-care (01) ==
LOC: DIORS 15:52
PROVIDERS: PCP Nurse Practitioner Family; Visit Provider Student in an Organized Health Care Education/Training Program
DX: M77.32 Calcaneal spur, left foot (principal)
CPT/HCPCS: 73600; 73630

== ENCOUNTER → 2023-08-06 01:49 | Outpatient (CLI) | payer BC, SELFPAY ==
--- NOTE | 2023-08-06 11:00 | DI.MRI_ITS ---
Exam(s) MR LOWER EXTREMITY LT WO EXAM: MR LOWER EXTREMITY LT WO CLINICAL HISTORY: PAIN,?LISFRANC FX,oa mid foot,dislocation,m19.079,s93.326a TECHNIQUE: Multiplanar multisequence MRI was performed without intravenous contrast. COMPARISON: No exams were available for comparison FINDINGS: SKIN: No evidence of ulcer nor subcutaneous tract. There is mild subcutaneous edema laterally over t he BONES/JOINTS: There is no articular malalignment. Small joint effusion is noted in the tibiotalar courtney int. The talar dome is intact but there is bone contusion signal evident within the proximal talus c omment occluded adjacent to the posterior subtalar joint as well as in the calcaneus including along the posterior subtalar joint and there are degenerative subarticular cysts on the talar side of this articulation. There is intraosseous edema in the calcaneus subjacent to the sinus tarsi. Prominent area of bone contusion noted in the cuboid bone extending to the distal articular surface and there i s also some bone edema evident in the proximal aspects of the 2nd, 3rd, and 4th metatarsals. There i s no intraosseous signal abnormality in the navicular and cuneiform bones. There is also small amount of joint effusion noted in the talonavicular joint. No degenerative glover es evident at this articulation. No dorsal osteophytes. PLANTAR FASCIA: Appears intact LISFRANC JOINT: Some thinning of the main Lisfranc ligament noted as well as signal abnormality in th e soft tissues along the plantar aspect of this level. There is no offset of the joint evident. LIGAMENTS: Distal tibial fibular appear intact. Anterior and posterior talofibular ligaments appear intact. Calcaneofibular ligament appears intact. Deltoid ligament superficial aspect appears intact . Mild sprain evident in the deep fibers. MUSCULOTENDINOUS STRUCTURES: Achilles tendon exhibits some tendinitis signal. Medially the tibialis posterior and flexor digitorum appear intact. No tear nor tenosynovitis. Flexor hallucis longus is also intact. Laterally the Peroni is lung is in brevis appear intact. On the undersurface of the fo ot the prongs longus tendon appears intact. SOFT TISSUES: Unremarkable. OTHER FINDINGS: None. IMPRESSION: 1. Multifocal areas of bone contusion without distinct fracture lines. The most prominent bone contu sions are in the talus, calcaneus, and cuboid. No obvious fracture lines identified. No pes planus. 2. Mild distal Achilles tendinitis. 3. Achilles tendinitis. Other findings as above. DATA REPOSITORY:
--- NOTE | 2023-08-06 11:49 | DI.VRAD_ITS ---
PROCEDURE INFORMATION: Exam: MR Left Lower Extremity Other Than Joint Without Contrast; Hindfoot Exam date and time: 08/06/2023 10:22 AM Age: 48 years old Clinical indication: Left; Patient HX: Pain, ? lisfranc FX, oa mid foot, dislocation x 2 months ago. Pain improving still uncomfortable to walk. TECHNIQUE: Imaging protocol: Magnetic resonance imaging of the left lower extremity other than joint without contrast. Exam focused on the hindfoot. COMPARISON: CR XR FOOT LT COMPLETE 07/19/2023 8:30 AM (report not provided) FINDINGS: Bones/joints: The joint spaces are normally aligned. There are small effusions of the tibiotalar and talonavicular joints. The talar dome is maintained and contour, and its articular cartilage is intact. Moderate areas of bone bruising are present within the proximal talus, including adjacent to the posterior subtalar joint, the calcaneus, including along the posterior subtalar joint and more anteriorly, and in the cuboid. More mild patchy marrow edema is present in the proximal aspect of the 3rd and 4th metatarsal shafts. No discrete fracture is identified. Mild osteophyte formation is present about some intertarsal and tarsometatarsal joints. There are again small posterior and moderate plantar calcaneal enthesophytes. LIGAMENTS: Distal tibiofibular syndesmosis: Unremarkable. No tear. Anterior talofibular ligament: Unremarkable. No tear. Posterior talofibular ligament: Unremarkable. No tear. Calcaneofibular ligament: Unremarkable. No tear. Deltoid ligament complex: Increased signal involves the deep fibers of the deltoid ligament, indicating sprain. The superficial fibers are intact. TENDONS: Flexor tendons of foot: Unremarkable as visualized. Tibialis posterior tendon: Unremarkable as visualized. Peroneal tendons: Unremarkable as visualized. Extensor tendons of foot: Unremarkable as visualized. Tibialis anterior tendon: Unremarkable as visualized. Achilles tendon: Mild distal Achilles tendinopathy. Tarsal canal (Sinus tarsi): Unremarkable. Normal signal of the fat. Tarsal tunnel: Unremarkable. Soft tissues: Mild subcutaneous soft tissue edema is present laterally over the ankle and into the dorsolateral aspect of the midfoot. No well-formed hematoma is identified. Plantar fascia: Small focus of ossific fasciitis approximately 2 cm proximal to the insertion. IMPRESSION: 1. Mild subcutaneous soft tissue edema laterally over the ankle and into the dorsolateral aspect of the midfoot. 2. Multifocal areas of bone bruising as described without discrete fracture identified. 3. Small tibiotalar and talonavicular joint effusions, nonspecific, could be posttraumatic. The line sprain of the deep fibers of the deltoid ligament. 4. Degenerative changes as described. 5. Mild distal Achilles tendinopathy. 6. Small focal ossific plantar fasciitis. Dictated and Authenticated by: Jim Gilbert MD. Ordering:ELLE Stone MD
== END ==
PROVIDERS: PCP Nurse Practitioner Family; Visit Provider Student in an Organized Health Care Education/Training Program
DX: M19.072 Primary osteoarthritis, left ankle and foot (principal)
CPT/HCPCS: 73718

== ENCOUNTER 2023-12-28 02:38 | Outpatient (CLI) | payer BC, SELFPAY ==
[2023-12-28 13:16] LABS: Abs Immature Grans 0.03 10^3/uL (0.0-0.06); Absolute Basophil Count 0.04 10^3/uL (0.0-0.2); Absolute Eosinophil Count 0.09 10^3/uL (0.0-0.7); Absolute Lymphocyte Count 1.29 10^3/uL (1.2-3.4); Absolute Monocyte Count 0.53 10^3/uL (0.1-0.8); Absolute Neutrophil Count 3.98 10^3/uL (1.2-6.7); Basophils % 0.7 %; Eosinophils % 1.5 %; HCT 43.7 % (40.0-50.0); HGB 15.3 g/dL (13.5-17.5); Immature Grans % 0.5 %; Lymphocytes % 21.6 %; MCH 32.9 pg (27.0-33.0); MCV 94 fL (80-95); MPV 9.7 fL (8.0-11.0); Monocytes % 8.9 %; Neutrophils % 66.8 %; Platelet Count 206 10^3/uL (130-400); RBC 4.65 10^6/uL (4.36-5.78); RDW 13.2 % (11.8-14.1); RDW-SD 44.3 fL; WBC 5.96 10^3/uL (4.4-10.8)
[2023-12-28 13:35] LABS: Hemoglobin A1C 5.3 % (<5.7)
[2023-12-28 13:55] LABS: Iron 108 ug/dL (65-175); Total Iron Binding Capacity 370 ug/dL (250-450); Transferrin Sat 29 % (20-55)
[2023-12-28 14:11] LABS: ALT 53 U/L (16-63); AST 35 U/L (15-37); Albumin 4.2 g/dL (3.4-5.0); Alkaline Phosphatase 90 U/L (46-116); Anion Gap 8.8 mmol/L (3-11); BUN 16 mg/dL (7-18); Bilirubin, Total 1.04 mg/dL (0.2-1.0); C-Reactive Protein < 0.50 mg/dL (<or=0.5); CO2 26.2 mmol/L (21.0-32.0); Calcium 8.9 mg/dL (8.5-10.1); Chloride 107 mmol/L (98-107); Estimated GFR 91.69 (mL/min/1.73m2); Glucose 88 mg/dL (74-106); Sodium 142 mmol/L (136-145); TSH 1.44 uIU/Ml (0.36-3.74); Total Protein 8.2 g/dL (6.4-8.2); Uric Acid 8.5 mg/dL (3.5-7.2)
[2023-12-28 14:50] LABS: Calculated LDL 102 mg/dL (<100); Cholesterol 193 mg/dL (<200); Ferritin 116 ng/mL (26-388); Folate 6.9 ng/mL (8.6-20.0); HDL Cholesterol 33 mg/dL (40-60); Triglyceride 290 mg/dL (<150); Vitamin B12 310 pg/mL (193-986); Vitamin D 25 Total 39.5 ng/mL (30-100)
[2023-12-28 22:42] LABS: Parathyroid Hormone,Intact 97 pg/mL (19-88)
[2024-01-02 11:57] LABS: Insulin, Free 6 mcIU/mL (3 - 25); Insulin, Total 6 mcIU/mL (3 - 25)
== END 2023-12-28 02:39 | disposition home or self-care (01) ==
PROVIDERS: PCP Nurse Practitioner Family; Visit Provider Family Medicine
DX: Z98.84 Bariatric surgery status (principal); E66.01 Morbid (severe) obesity due to excess calories; Z68.41 Body mass index [BMI] 40.0-44.9, adult
CPT/HCPCS: 36415; 80053; 80061; 82306; 83525; 83527; 82607; 82728; 82746; 83036; 83540; 83550; 83970; 84443; 84550; 85025; 86140

== ENCOUNTER 2024-08-06 14:45 | Outpatient (CLI) | payer OTHER, SELFPAY ==
--- NOTE | 2024-08-06 15:05 | DI.RAD_ITS ---
Exam(s) XR LUMBAR SPINE COMPLETE EXAM: XR LUMBAR SPINE COMPLETE CLINICAL HISTORY: low/mid back pain, M54.9 dorsalgia. TECHNIQUE: 2D digital imaging was performed. Five views. COMPARISON: CT CT ABDOMEN PELVIS W from 07/24/2022 CR XR THORACIC SPINE COMPLETE from 08/06/2024 FINDINGS: There is a transitional type vertebral body at the lumbosacral junction, with sacralization of L5. BONES: No fracture or destructive lesion. Vertebral body heights are maintained. Mild facet hypert rophy identified . DISKS: Mild narrowing of the L1-2 and L2-3 disc spaces. Severe narrowing of the L3-4 and L4-[address] spaces with prominent endplate osteophytes at all levels. Also prominent osteophyte at the right upper SI joint. Rudimentary disc at L5-S1. ALIGNMENT: Lumbar spinal alignment is within normal limits. SOFT TISSUE: Normal. IMPRESSION: Advanced degenerative changes greatest at L4-5 and L5-S1. DATA REPOSITORY: RADIATION DOSE DELIVERED:
--- NOTE | 2024-08-06 15:05 | DI.RAD_ITS ---
Exam(s) XR THORACIC SPINE COMPLETE EXAM: XR THORACIC SPINE COMPLETE CLINICAL HISTORY: low mid back pain, dorsalgia, M54.9. TECHNIQUE: 2D digital imaging was performed. Three views. COMPARISON: No exams were available for comparison FINDINGS: BONES: There is no fracture or destructive lesion. The vertebral bodies and posterior elements are un remarkable. ALIGNMENT: Within normal limits. DISKS: Interverebral disc spaces are maintained. There are endplate osteophytes greater on the right side in the mid and lower thoracic regions. SOFT TISSUE: Visualized lungs are clear. IMPRESSION: Mild degenerative disc changes. DATA REPOSITORY: RADIATION DOSE DELIVERED:
== END 2024-08-06 15:05 ==
PROVIDERS: PCP Nurse Practitioner Family; Visit Provider Nurse Practitioner Family
DX: M54.9 Dorsalgia, unspecified (principal); M51.371 Other intervertebral disc degeneration, lumbosacral region with lower extremity pain only
CPT/HCPCS: 72072; 72110